=== PATIENT | male | born 1970 | race Caucasian/White ===

== ENCOUNTER 2018-02-27 15:45 | Emergency (ER) | payer BC ==
[2018-02-27 15:59] VITALS: TEMP 98.8
--- NOTE | 2018-02-27 17:11 | ED ---
General Adult HPI - General Chief complaint: Extremity Problem,Nontraumatic Stated complaint: can't walk, knee pain Time Seen by Provider: 02/27/18 16:01 Source: patient, RN notes reviewed, old records reviewed Mode of arrival: wheelchair Limitations: no limitations - History of Present Illness Initial comments: Patient is a 47 year old male whom presents to ED with R and L knee pain. Patient reports that he twisted his R knee a few weeks ago. Patient states that since then he has been using his left knee to compensate for his R knee. Patient reports he has also recently gotten over an upper respiratory infection , and has finished his antibitocs. Patient reports that his knee feels stiff, swollen and pain with ambulation. Patient reports he does not see an orthopedic physician at this time. - Related Data Previous Rx's Medication Instructions Recorded Acetaminophen with Codeine 1 tab PO Q6H PRN 3 Days #12 tab 02/27/18 [Tylenol w/codeine #3] Ibuprofen 600 mg PO TID #30 tablet 02/27/18 Allergies Allergy/AdvReac Type Severity Reaction Status Date / Time No Known Allergies Allergy Verified 02/27/18 15:59 Review of Systems ROS Statement: Those systems with pertinent positive or pertinent negative responses have been documented in the HPI. ROS Other: All systems not noted in ROS Statement are negative. Past Medical History Past Medical History: Diabetes Mellitus History of Any Multi-Drug Resistant Organisms: None Reported Additional Past Surgical History / Comment(s): retna reattachment Past Psychological History: No Psychological Hx Reported Smoking Status: Never smoker Past Alcohol Use History: Rare Past Drug Use History: None Reported General Exam - General Exam Comments Initial Comments: 47 year old male, no distress. Limitations: no limitations General appearance: alert, in no apparent distress Head exam: Present: atraumatic, normocephalic, normal inspection Eye exam: Present: normal appearance, PERRL, EOMI. Absent: scleral icterus, conjunctival injection, periorbital swelling ENT exam: Present: normal exam, mucous membranes moist Neck exam: Present: normal inspection. Absent: tenderness, meningismus, lymphadenopathy Respiratory exam: Present: normal lung sounds bilaterally. Absent: respiratory distress, wheezes, rales, rhonchi, stridor Extremities exam: Present: normal inspection (C), full ROM, normal capillary refill, other (pitus noticed over bilateral knees. Patient is tenddr over bilateral meniscus. Patient has no signiificant laxity, and negative valgus and varus bilaterally. normal distal pulse and senasation. ). Absent: tenderness, pedal edema, joint swelling, calf tenderness Back exam: Present: normal inspection Neurological exam: Present: alert, oriented X3, CN II-XII intact Psychiatric exam: Present: normal affect, normal mood Skin exam: Present: warm, dry, intact, normal color. Absent: rash Course Vital Signs 02/27/18 02/27/18 15:53 17:35 Temperature 98.8 F Pulse Rate 105 H 98 Respiratory 18 16 Rate Blood Pressure 134/87 133/76 O2 Sat by Pulse 98 95 Oximetry Medical Decision Making - Medical Decision Making Patient is a 47 year old male whom has bilateral knee pain. Patient had recent xrays at [facility]. Patient twisted his knees and has bene complnsating for the right knee with more weight on the left. Patient has crepitis and menisucal tendernss .on exam. Normal puses and patient does have good full RPM of the knees. Discussed patient is going to have to folllowup with Ortho. Given short course of antiinflammatory and pain medications. Disposition Clinical Impression: Right knee pain, Acute meniscal tear, medial, Left knee pain Disposition: HOME SELF-CARE Condition: Good Instructions: Meniscus Tear (ED) Additional Instructions: Patient advised follow-up with rac specialist. Remain in the knee immobilizer. Take a temperature medicine and pain medication as prescribed. Prescriptions: Acetaminophen with Codeine [Tylenol w/codeine #3] 1 tab PO Q6H PRN 3 Days #12 tab PRN Reason: Pain Ibuprofen 600 mg PO TID #30 tablet Is patient prescribed a controlled substance at d/c from ED?: Yes If prescribed controlled substance>3 days was MAPS reviewed?: Prescribed <3 Days If opioid is for acute pain is fill amount 7 days or less?: Yes If Rx opioid, was Start Talking consent form obtained?: Yes Referrals: Elvia Carbone III, MD [Primary Care Provider] - 1-2 days Ely Oh PAC [PHYSICIAN CROP SPECIALIST] - 1-2 days Time of Disposition: 17:07
[2018-02-27 17:41] VITALS: BP 133/76; PULSE 98; RESP 16
== END 2018-02-27 17:35 | disposition home or self-care (01) ==
LOC: EC 15:45
DX: S83.241A Other tear of medial meniscus, current injury, right knee, initial encounter (principal); S83.242A Other tear of medial meniscus, current injury, left knee, initial encounter; X50.1XXA Overexertion from prolonged static or awkward postures, initial encounter
CPT/HCPCS: 99283; L1830

== ENCOUNTER → 2018-03-02 | Outpatient (CLI) | payer BC ==
--- NOTE | 2018-03-02 17:23 | XR ---
EXAMINATION TYPE: XR orbit detect foreign body DATE OF EXAM: 03/02/2018 COMPARISON: NONE HISTORY: Check orbits for metal TECHNIQUE: 3 views FINDINGS: Orbital margins are intact. There is no sign of radiopaque foreign body. IMPRESSION: Normal exam. No evidence of a foreign body.
== END | disposition home or self-care (01) ==
LOC: RADXRMAIN 16:53
PROVIDERS: ATTEND Orthopaedic Surgery Sports Medicine
DX: Z01.818 Encounter for other preprocedural examination (principal)
CPT/HCPCS: 70030

== ENCOUNTER 2019-02-06 17:15 | Inpatient (IN) | payer BC ==
[2019-02-06] MEDS ORDERED: SODIUM CHLORIDE 0.9% 1,000 ML IV STA (17:50)
--- NOTE | 2019-02-06 18:25 | ED ---
General Adult HPI - General Chief complaint: Extremity Injury, Lower Stated complaint: Foot wound Time Seen by Provider: 02/06/19 17:16 Source: patient, RN notes reviewed, old records reviewed Mode of arrival: ambulatory Limitations: no limitations - History of Present Illness Initial comments: 48-year-old male patient with past medical history of diabetes presents to ED for chief complaint for diabetic foot ulcer. Patient Alyson has been ongoing in his right great toe for approximately 6 weeks. For student following up with his primary care prior for has been using mupirocin ointment. Patient reports that the last 2 days. Also has gotten worse, he is having follow-up odor, redness of the great toe extending up the foot. Denies any recent immun ocompromise including HIV asplenia. Denies any other complaints. Systemic: Pt denies fatigue, fever/chills, rash. Pt denies weakness, night sweats, weight loss. Neuro: Pt denies headache, visual disturbances, syncope or pre-syncope. HEENT: Pt denies ocular discharge or irritation, otalgia, rhinorrhea, pharyngitis or notable lymphadenopathy. Cardiopulmonary: Pt denies chest pain, SOB, heart palpitations, dyspnea on exertion. Abdominal/GI: Pt denies abdominal pain, n/v/d. : Pt denies dysuria, burning w/ urination, frequency/urgency. Denies new onset urinary or bowel incontinence. MSK: Pt denies myalgia, loss of strength or function in extremities. Neuro: Pt denies new onset weakness, paresthesias. - Related Data Previous Rx's Medication Instructions Recorded Acetaminophen with Codeine 1 tab PO Q6H PRN 3 Days #12 tab 02/27/18 [Tylenol w/codeine #3] Ibuprofen 600 mg PO TID #30 tablet 02/27/18 Allergies Allergy/AdvReac Type Severity Reaction Status Date / Time No Known Allergies Allergy Verified 02/27/18 15:59 Review of Systems ROS Statement: Those systems with pertinent positive or pertinent negative responses have been documented in the HPI. ROS Other: All systems not noted in ROS Statement are negative. Past Medical History Past Medical History: Diabetes Mellitus, Hypertension History of Any Multi-Drug Resistant Organisms: None Reported Additional Past Surgical History / Comment(s): retna reattachment Past Psychological History: No Psychological Hx Reported Smoking Status: Never smoker Past Alcohol Use History: Rare Past Drug Use History: None Reported General Exam - General Exam Comments Initial Comments: Constitutional: NAD, AOX3, Pt has pleasant affect. HEENT: NC/AT, trachea midline, neck supple, no lymphadenopathy. Posterior pharynx non erythematous, without exudates. External ears appear normal, without discharge. Mucous membranes moist. Eyes PERRLA, EOM intact. There is no scleral icterus. No pallor noted. Cardiopulmonary: RRR, no murmurs, rubs or gallops, no JVD noted. Lungs CTAB in anterior and posterior castañeda. No peripheral edema. Abdominal exam: Abdomen soft and non-distended. Abdomen non-tender to palpation in all 4 quadrants. Bowel sounds active in LLQ. No hepatosplenomegaly. No ecchymosis Neuro: CN II-XII grossly intact. No nuchal rigidity. No raccon eyes, no machado sign, no hemotympanum. No cervical spinal tenderness. MSK: Grade 3 diabetic foot ulcer great toe right foot. Cellulitic skin changes extending up the medial aspect of foot. Posterior tibialis, dorsalis pedis +2 equal bilaterally. No posterior calf tenderness bilaterally, homans sign negative bilaterally. Posterior tibialis and radial pulse +2 bilaterally. Sensation intact in upper and lower extremities. Full active ROM in upper and lower extremities, 5/5 stregnth. Limitations: no limitations Course Vital Signs 02/06/19 02/06/19 17:17 18:47 Temperature 98.0 F Pulse Rate 80 72 Respiratory 18 18 Rate Blood Pressure 169/93 143/73 O2 Sat by Pulse 94 L 98 Oximetry Medical Decision Making - Medical Decision Making 48-year-old male patient with past medical history of diabetes presents to ED for chief complaint for diabetic foot ulcer. Patient Alyson has been ongoing in his right great toe for approximately 6 weeks. For student following up with his primary care prior for has been using mupirocin ointment. Patient reports that the last 2 days. Also has gotten worse, he is having follow-up odor, redness of the great toe extending up the foot. Denies any recent immunocompr omise including HIV asplenia. Denies any other complaints. Patient will signs stable, afebrile. Physical exam displayed a grade 3 diabetic foot ulcer on the right great toe. No visible bone. Cellulitic changes of right toe extending up the aspect of the foot. Laboratory investigations significant for a leukocytosis of 15.1. Plain film negative for acid malaise. Patient admitted for diabetic foot ulcer. Case discussed with Dr. Castillo. - Lab Data Result diagrams: 02/06/19 18:12 02/06/19 18:12 Lab Results 02/06/19 02/06/19 02/06/19 Range/Units 18:12 18:12 18:12 WBC 15.1 H (3.8-10.6) k/uL RBC 4.86 (4.30-5.90) m/uL Hgb 15.1 (13.0-17.5) gm/dL Hct 42.7 (39.0-53.0) % MCV 87.8 (80.0-100.0) fL MCH 31.1 (25.0-35.0) pg MCHC 35.4 (31.0-37.0) g/dL RDW 13.5 (11.5-15.5) % Plt Count 363 (150-450) k/uL Neutrophils % 81 % Lymphocytes % 12 % Monocytes % 3 % Eosinophils % 2 % Basophils % 1 % Neutrophils # 12.2 H (1.3-7.7) k/uL Lymphocytes # 1.9 (1.0-4.8) k/uL Monocytes # 0.5 (0-1.0) k/uL Eosinophils # 0.3 (0-0.7) k/uL Basophils # 0.1 (0-0.2) k/uL Sodium 140 (137-145) mmol/L Potassium 4.6 (3.5-5.1) mmol/L Chloride 107 (98-107) mmol/L Carbon Dioxide 23 (22-30) mmol/L Anion Gap 10 mmol/L BUN 15 (9-20) mg/dL Creatinine 0.90 (0.66-1.25) mg/dL Est GFR (CKD-EPI)AfAm >90 (>60 ml/min/1.73 sqM) Est GFR (CKD-EPI)NonAf >90 (>60 ml/min/1.73 sqM) Glucose 129 H (74-99) mg/dL Plasma Lactic Acid Daniel 2.0 (0.7-2.0) mmol/L Calcium 9.6 (8.4-10.2) mg/dL Total Bilirubin 0.5 (0.2-1.3) mg/dL AST 40 (17-59) U/L ALT 25 (21-72) U/L Alkaline Phosphatase 69 (38-126) U/L Total Protein 7.9 (6.3-8.2) g/dL Albumin 4.3 (3.5-5.0) g/dL Disposition Clinical Impression: Diabetic foot ulcer Disposition: ADMITTED IP TO THIS HOSP Condition: Fair Is patient prescribed a controlled substance at d/c from ED?: No Referrals: Elvia Carbone III, MD [Primary Care Provider] - 1-2 days
[2019-02-06 18:40] LABS: Basophils # (A) 0.1 k/uL (0-0.2); Basophils % (A) 1 %; Eosinophils # (A) 0.3 k/uL (0-0.7); Eosinophils % (A) 2 %; HCT 42.7 % (39.0-53.0); HGB 15.1 gm/dL (13.0-17.5); Lymphocytes # (A) 1.9 k/uL (1.0-4.8); Lymphocytes % (A) 12 %; MCH 31.1 pg (25.0-35.0); MCHC 35.4 g/dL (31.0-37.0); MCV 87.8 fL (80.0-100.0); Mean Platelet Volume 5.7; Monocytes # (A) 0.5 k/uL (0-1.0); Monocytes % (A) 3 %; Neutrophils # (A) 12.2 k/uL (1.3-7.7); Neutrophils % (A) 81 %; Platelet Count 363 k/uL (150-450); RBC 4.86 m/uL (4.30-5.90); RDW 13.5 % (11.5-15.5); WBC 15.1 k/uL (3.8-10.6)
--- NOTE | 2019-02-06 18:40 | XR ---
EXAMINATION TYPE: XR foot complete RT DATE OF EXAM: 02/06/2019 COMPARISON: NONE HISTORY: 48-year-old male diabetic foot infection, pain TECHNIQUE: 3 views FINDINGS: Focal soft tissue ulcer along the medial plantar aspect of the great toe. No underlying periostitis o r osteolysis. Mild degenerative change first MTP joint. Posterior and plantar calcaneal spurs. Small os peroneum. No acute fracture, subluxation, or dislocation. IMPRESSION: Focal soft tissue ulcer along the medial plantar aspect of the great toe. No underlying osseous smallwood es to suggest osteomyelitis at this time.
[2019-02-06 18:50] LABS: ALT 25 U/L (21-72); AST 40 U/L (17-59); African American GFR (CKD) >90 (>60 ml/min/1.73 sqM); Albumin 4.3 g/dL (3.5-5.0); Alkaline Phosphatase 69 U/L (38-126); Anion Gap 10 mmol/L; Blood Urea Nitrogen 15 mg/dL (9-20); Calcium 9.6 mg/dL (8.4-10.2); Carbon Dioxide 23 mmol/L (22-30); Chloride 107 mmol/L (98-107); Glucose 129 mg/dL (74-99); Non-African American GFR(CKD) >90 (>60 ml/min/1.73 sqM); Potassium 4.6 mmol/L (3.5-5.1); Sodium 140 mmol/L (137-145); Total Bilirubin 0.5 mg/dL (0.2-1.3); Total Protein 7.9 g/dL (6.3-8.2)
[2019-02-06] MEDS ORDERED: NALOXONE 0.4 MG/ML 1 ML VIAL IV PRN (20:09)
[2019-02-06] MEDS ORDERED: PIPERACILLIN-TAZOBACTAM 3.375 GM in SODIUM CHLORIDE 0.9% 100 ML IVPB STA (20:10)
[2019-02-06] MEDS: SODIUM CHLORIDE 0.9% 1,000 ML IV SCH (20:55)
[2019-02-06 22:17] LABS: Glucose,Whole Blood 99 mg/dL (75-99)
[2019-02-06] MEDS ORDERED: HYDROmorphone 0.5 MG/0.5 ML SYRINGE IVP PRN (23:08)
[2019-02-06] MEDS ORDERED: ALPRAZolam 0.25 MG TAB PO PRN (23:08)
[2019-02-06] MEDS ORDERED: TEMAZEPAM 15 MG CAP PO PRN (23:08)
[2019-02-06] MEDS ORDERED: VANCOMYCIN 2,000 MG in SODIUM CHLORIDE 0.9% 250 ML IVPB ONE (23:09)
[2019-02-06] MEDS ORDERED: VANCOMYCIN IV PER PHARMACY 1 EACH MISC MISCELLANE PRN (23:09)
[2019-02-06] MEDS ORDERED: VANCOMYCIN 2,000 MG in SODIUM CHLORIDE 0.9% 500 ML IVPB ONE (23:30)
[2019-02-06] MEDS ORDERED: metFORMIN 500 MG TAB PO STA (23:36)
[2019-02-06] MEDS ORDERED: LISINOPRIL 20 MG TAB PO STA (23:36)
[2019-02-06] MEDS ORDERED: ESTRADIOL 0.5 MG TAB PO STA (23:37)
[2019-02-06] MEDS: HYDROcodone/APAP 5-325MG 1 EACH TAB PO PRN (23:58)
--- NOTE | 2019-02-07 04:26 | HP ---
HISTORY AND PHYSICAL DATE OF SERVICE: 02/06/2019. CHIEF COMPLAINT: Pain and swelling of the right big toe. HISTORY OF PRESENT ILLNESS: This 48-year-old gentleman with a past medical history of multiple medical problems including diabetes, hypertension, being followed by Dr. Carbone in the outpatient setting apparently noted a callus on the right big toe, which the patient tried to pare and subsequently patient had a small ulceration with difficulty with infection. 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 Because of increasing difficulty, the patient came to [facility] and admitted for further evaluation and treatment for diabetic ulcer of the right big toe. There is no history of fever, rigors. No history of headache, loss of consciousness or seizures. PAST MEDICAL HISTORY: Diabetes and hypertension. MEDICATIONS: Home medications are: 1. Lisinopril 10 20 mg q.h.s. 2.floxacillin and metformin that is Synjardy 1 tablet p.o. daily. 3. Bicalutamide b.i.d. 50 mg with lunch. 4. Aspirin. 5. Metformin 1000 mg b.i.d. 6. Estradiol 4 mg p.o. daily. ALLERGIES: None. FAMILY HISTORY: History of CAD, hypertension in the family. SOCIAL HISTORY: History of occasional alcohol. No history of smoking. REVIEW OF SYSTEMS: ENT: No diminished vision. No diminished hearing. CARDIOVASCULAR: No angina or palpitations. RESPIRATION: No cough. GI no nausea or vomiting. no dysuria or hematuria. NERVOUS SYSTEM: No numbness or weakness. ALLERGY/IMMUNOLOGY: No asthma or hayfever. MUSCULOSKELETAL as mentioned earlier. HEMATOLOGY/ONCOLOGY: No history of anemia. ENDOCRINE: As mentioned earlier. CONSTITUTIONAL: As mentioned earlier. DERMATOLOGY as mentioned earlier. RHEUMATOLOGY: Negative. PSYCHIATRY as mentioned. PHYSICAL EXAMINATION: The patient is alert and oriented times three. Pulse is 70. Blood pressure 154/80, respiration 18, temperature 98.4, pulse ox 98% on room air. HEENT: Conjunctivae normal. Oral mucosa moist. NECK is no jugular venous distention. No carotid bruit. No lymph node enlargement. Cardiovascular system: S1, S2 muffled. RESPIRATORY: Breath sounds diminished in the bases. No rhonchi. No crackles. ABDOMEN: Soft, obese, nontender. LEGS: Right big toe ulceration with callus and tenderness, erythema and cellulitis also present. NERVOUS SYSTEM: Higher functions as mentioned earlier. Moves all four limbs. No focal motor or sensory deficits. LYMPHATICS: No lymph nodes palpable in the neck, axillae or groin. SKIN: As mentioned. JOINTS as mentioned earlier. LABS: WBC 15.4, hemoglobin 15.1 and sodium 140, potassium 4.2. ASSESSMENT: 1. Acute right diabetic foot ulcer with failure of outpatient treatment and rule out osteomyelitis. 2. Increased WBC. 3. Diabetes mellitus type 2. 4. Hypertension. 5. Obesity with body mass index of 40. RECOMMENDATIONS AND DISCUSSION: In this 48-year-old gentleman who presented with multiple complex medical issues, we will monitor the patient closely, continue the current medications, management and symptomatic treatment. We will initiate broad-spectrum IV antibiotics, infectious disease evaluation. Otherwise, bone scan. Resume the home medications. DVT prophylaxis. Monitor blood sugars closely. Prognosis guarded because of multiple complex medical issues. Further recommendations to follow. A copy of dictation being forwarded to Dr. Carbone who is the primary physician. MMSHAHIDAL / ZEINABN: [id number] / DIANE
[2019-02-07] MEDS: PIPERACILLIN-TAZOBACTAM 3.375 GM in SODIUM CHLORIDE 0.9% 100 ML IVPB SCH ×3 (06:20→22:03)
[2019-02-07 07:21] LABS: Glucose,Whole Blood 100 mg/dL (75-99)
[2019-02-07] MEDS: INSULIN ASPART (NovoLOG) 100 UNIT/ML VIAL SQ SCH ×4 (07:30→21:41)
[2019-02-07 08:02] LABS: Basophils % (A) 0 %; Eosinophils # (A) 0.3 k/uL (0-0.7); Eosinophils % (A) 2 %; HCT 40.3 % (39.0-53.0); HGB 13.6 gm/dL (13.0-17.5); Lymphocytes # (A) 2.1 k/uL (1.0-4.8); Lymphocytes % (A) 17 %; MCH 30.2 pg (25.0-35.0); MCHC 33.8 g/dL (31.0-37.0); MCV 89.4 fL (80.0-100.0); Mean Platelet Volume 5.5; Monocytes # (A) 0.5 k/uL (0-1.0); Monocytes % (A) 4 %; Neutrophils # (A) 9.3 k/uL (1.3-7.7); Neutrophils % (A) 75 %; Platelet Count 314 k/uL (150-450); RBC 4.51 m/uL (4.30-5.90); RDW 13.6 % (11.5-15.5); WBC 12.3 k/uL (3.8-10.6)
[2019-02-07 08:18] LABS: African American GFR (CKD) >90 (>60 ml/min/1.73 sqM); Anion Gap 8 mmol/L; Blood Urea Nitrogen 15 mg/dL (9-20); Calcium 9.1 mg/dL (8.4-10.2); Carbon Dioxide 27 mmol/L (22-30); Chloride 105 mmol/L (98-107); Glucose 108 mg/dL (74-99); Non-African American GFR(CKD) >90 (>60 ml/min/1.73 sqM); Potassium 4.3 mmol/L (3.5-5.1); Sodium 140 mmol/L (137-145)
[2019-02-07] MEDS ORDERED: EMPAGLIFLOZIN PO SCH (09:00)
[2019-02-07] MEDS ORDERED: ESTRADIOL 0.5 MG TAB PO SCH (09:00)
[2019-02-07] MEDS ORDERED: METFORMIN HCL PO SCH (09:00)
[2019-02-07] MEDS: HEPARIN SODIUM,PORCINE 5,000 UNIT/ML 1 ML VIAL SQ SCH ×2 (10:09→21:40)
[2019-02-07] MEDS: metFORMIN 500 MG TAB PO SCH ×2 (10:09→21:40)
[2019-02-07] MEDS: VANCOMYCIN 2,000 MG in SODIUM CHLORIDE 0.9% 500 ML IVPB SCH ×2 (10:09→21:42)
[2019-02-07] MEDS: SODIUM CHLORIDE 0.9% 1,000 ML IV SCH ×2 (10:10→17:45)
[2019-02-07] MEDS: HYDROcodone/APAP 5-325MG 1 EACH TAB PO PRN (10:13)
--- NOTE | 2019-02-07 10:37 | NM ---
EXAMINATION TYPE: NM bone 3 phase DATE OF EXAM: 02/07/2019 COMPARISON: Radiograph 02/06/2019 HISTORY: 48-year-old male diabetic foot ulcer, pain. Open sore along the plantar aspect. Technique: Triple phase bone scintigraphy was performed following the injection of 24.9 mCi Tc 99m MD P. Immediate images and 3 hours post injection images acquired. Imaging centered along the bilateral distal lower extremities. FINDINGS: Flow images show asymmetric hyperemia to the right medial forefoot. These findings persist on the poo l images. Delayed images show vague increased long segment activity in this region, suspected residual soft tis vaughn activity. No focal intense activity in this region. IMPRESSION: Two-phase positive bone scan findings along the great toe suggests cellulitis. Delayed images show fa int long segment uptake, likely residual soft tissue activity. No focal intense delayed activity to c learly indicate osteomyelitis at this time. Ongoing radiographic follow-up can be performed.
[2019-02-07 12:01] LABS: Glucose,Whole Blood 104 mg/dL (75-99)
[2019-02-07] MEDS: METFORMIN HCL PO SCH (12:09)
[2019-02-07] MEDS: EMPAGLIFLOZIN PO SCH (12:09)
[2019-02-07] MEDS: ASPIRIN 81 MG PO SCH (12:09)
[2019-02-07] MEDS: BICALUTAMIDE 50 MG TAB PO SCH (12:10)
[2019-02-07] MEDS: ESTRADIOL PO SCH ×2 (15:58→21:41)
[2019-02-07 16:54] LABS: Glucose,Whole Blood 87 mg/dL (75-99)
--- NOTE | 2019-02-07 19:16 | PN ---
PROGRESS NOTE DATE OF SERVICE: 02/07/2019 This 48-year-old gentleman who was admitted with right big toe cellulitis and possibly abscess, had a bone scan suggestive of cellulitis. No evidence of osteomyelitis. No chest pain. No palpitations. The patient on broad spectrum IV antibiotics. White count is 12.3. EXAM: Alert and oriented x3. Pulse 63, blood pressure 130/97, respiration 20, temperature 97.4, pulse ox 98% on room air. HEENT: Conjunctivae normal. Oral mucosa moist. NECK: No jugular venous distention. No lymph node enlargement. CARDIOVASCULAR: S1, S2. RESPIRATORY: Diminished breath sounds at the bases. No rhonchi, no crackles. ABDOMEN: Soft, nontender. LEGS: Right toe cellulitis present. NERVOUS SYSTEM: No focal deficits. LABS: WBC 12.2, hemoglobin 13.6. ASSESSMENT: 1. Acute right diabetic foot ulcer with failure of outpatient treatment and no evidence of osteomyelitis in the bone scan. 2. Increased WBC. 3. Diabetes mellitus type 2. 4. Hypertension. 5. Obesity with body mass index of 40. RECOMMENDATIONS AND DISCUSSION: Recommend to continue current medications, continue to monitor and symptomatic treatment. Otherwise, continue with infectious disease. Continue with rest of the medications. Guarded prognosis. Further recommendations to follow. MMODL / IJN: [id number] /
[2019-02-07 21:03] LABS: Glucose,Whole Blood 105 mg/dL (75-99)
[2019-02-07] MEDS: LISINOPRIL 20 MG TAB PO SCH (21:41)
--- NOTE | 2019-02-07 23:03 | P.CONS ---
History of Present Illness - Reason for Consult Consult date: 02/07/19 Right diabetic foot infection Requesting physician: Sapphire Cho - Chief Complaint Right big toe wound and foul-smelling drainage x few days - History of Present Illness Patient is a 48 year male with a past medical history significant for diabetes mellitus the patient did develop a callus on the plantar aspect of the right big toe which apparently the patient tried to shave himself about 6 weeks ago with resultant formation of a small wound on the plantar aspect of his right big toe the patient has been trying to heal by himself with some local modalities 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 patients after he took his socks off he noticed to have a foul- smelling drainage on those dressing coming from the wound on the plantar aspect of the right big toe patient had been complaining of some pressure and dull aching pain to the right big toe for the last few days they seem to have spreading to the involved the whole toe patient has been complaining of pain to be more of a pressure-like dull aching 45-10 and no radiation patient did have some chills but denies high-grade fever with these symptoms the patient has been evaluated by the physician on to the issue did have x-rays of the right foot which did not show any bony changes of Cipro did have a bowl skin that has been negative for any osteomyelitis local wound culture has been obtained patient has been treated with a Zosyn and vancomycin and infectious disease was consulted for further recommendation regarding antibiotic therapy Review of Systems Positive point has been mentioned in the HPI rest of the systems are negative Past Medical History Past Medical History: Diabetes Mellitus, Hypertension History of Any Multi-Drug Resistant Organisms: None Reported Additional Past Surgical History / Comment(s): retna reattachment Past Anesthesia/Blood Transfusion Reactions: No Reported Reaction Past Psychological History: No Psychological Hx Reported Smoking Status: Never smoker Past Alcohol Use History: Rare Past Drug Use History: None Reported - Past Family History Father Family Medical History: Coronary Artery Disease (CAD), Hypertension Mother Family Medical History: Coronary Artery Disease (CAD) Medications and Allergies Home Medications Medication Instructions Recorded Confirmed Type Aspirin [[place]lin Aspirin EC] 81 mg PO W/LUNCH 02/06/19 02/06/19 History Bicalutamide 50 mg PO W/LUNCH 02/06/19 02/06/19 History Empagliflozin/Metformin HCl 1 tab PO DAILY 02/06/19 02/06/19 History [Synjardy Xr 25-1,000 mg Tablet] Estradiol 4 mg PO TID 02/06/19 02/06/19 History Lisinopril 20 mg PO HS 02/06/19 02/06/19 History metFORMIN HCL 1,000 mg PO BID 02/06/19 02/06/19 History Allergies Allergy/AdvReac Type Severity Reaction Status Date / Time No Known Allergies Allergy Verified 02/06/19 20:19 Physical Exam Vitals: Vital Signs Temp Pulse Resp BP Pulse Ox 02/07/19 21:41 98.1 F 66 17 149/83 97 02/07/19 12:54 97.4 F L 66 16 151/88 97 02/07/19 04:15 97.5 F L 63 20 139/71 98 Intake and Output 02/07/19 02/07/19 02/07/19 06:59 14:59 22:59 Intake Total 540 Balance 540 Intake: Oral 540 Other: Voiding Method Toilet # Voids 1 2 4 GENERAL DESCRIPTION: Middle-aged male lying in bed, no distress. No tachypnea or accessory muscle of respiration use. HEENT: Shows Pallor , no scleral icterus. Oral mucous membrane is dry. No pharyngeal erythema or thrush NECK: Trachea central, no thyromegaly. LUNGS: Unlabored breathing. Clear to auscultation anteriorly. No wheeze or crackle. HEART: S1, S2, regular rate and rhythm. No loud murmur ABDOMEN: Soft, no tenderness , guarding or rigidity, no organomegaly EXTREMITIES: No edema of feet. Right big toe plantar aspect did have a wound with foul-smelling drainage surrounding redness SKIN: No rash, no masses palpable. NEUROLOGICAL: The patient is awake, alert, oriented x3, mood and affect normal. Results CBC & Chem 7: 02/07/19 07:32 02/07/19 07:32 Labs: Abnormal Lab Results - Last 24 Hours (Table) 02/07/19 02/07/19 02/07/19 Range/Units 07:19 07:32 07:32 WBC 12.3 H (3.8-10.6) k/uL Neutrophils # 9.3 H (1.3-7.7) k/uL Glucose 108 H (74-99) mg/dL POC Glucose (mg/dL) 100 H (75-99) mg/dL 02/07/19 02/07/19 Range/Units 11:46 21:02 WBC (3.8-10.6) k/uL Neutrophils # (1.3-7.7) k/uL Glucose (74-99) mg/dL POC Glucose (mg/dL) 104 H 105 H (75-99) mg/dL Microbiology - Last 24 Hours (Table) 02/06/19 18:12 Blood Culture - Preliminary Blood No Growth after 24 hours 02/06/19 18:12 Gram Stain - Preliminary Toe - Right First Wound Culture - Preliminary Beta Hemolytic Strep Group G Assessment and Plan Assessment: 1-patient with right big toe diabetic foot infection with infected callus with a foul-smelling drainage more likely a polymicrobial adeel leading to these wound infection and secondary cellulitis (1) Diabetic infection of right foot Current Visit: Yes Status: Acute Code(s): E11.628 - TYPE 2 DIABETES MELLITUS WITH OTHER SKIN COMPLICATIONS; L08.9 - LOCAL INFECTION OF THE SKIN AND SUBCU TANEOUS TISSUE, UNSP SNOMED Code(s): 47231931 (2) Diabetic foot ulcer Current Visit: Yes Status: Acute Code(s): E11.621 - TYPE 2 DIABETES MELLITUS WITH FOOT ULCER; L97.509 - NON-PRESSURE CHRONIC ULCER OTH PRT UNSP FOOT W UNSP SEVERITY SNOMED Code(s): 658041625 Plan: 1-await vascular surgery evaluation for debridement of this callus and deep cultures 2-Vancomycin pharmacy to dose target trough of 15 while watching his kidney function and Vanco trough closely 3-discontinue Zosyn to decrease risk of nephrotoxicity add Unasyn 3 g every 6 hours We will follow on clinical condition and cultures to further adjust medication if needed Thank you for this consultation will follow this patient with you Time with Patient: Greater than 30
[2019-02-08] MEDS: AMPICILLIN-SULBACTAM 3 GM in SODIUM CHLORIDE 0.9% 100 ML IVPB SCH ×4 (00:12→18:07)
[2019-02-08] MEDS: SODIUM CHLORIDE 0.9% 1,000 ML IV SCH ×3 (02:11→21:09)
[2019-02-08] MEDS: INSULIN ASPART (NovoLOG) 100 UNIT/ML VIAL SQ SCH ×4 (07:08→20:44)
[2019-02-08 07:12] LABS: Glucose,Whole Blood 91 mg/dL (75-99)
[2019-02-08] MEDS: METFORMIN HCL PO SCH (07:52)
[2019-02-08] MEDS: EMPAGLIFLOZIN PO SCH (07:52)
[2019-02-08] MEDS: ESTRADIOL PO SCH ×3 (08:05→21:09)
[2019-02-08] MEDS: HEPARIN SODIUM,PORCINE 5,000 UNIT/ML 1 ML VIAL SQ SCH ×2 (08:43→21:09)
[2019-02-08] MEDS: metFORMIN 500 MG TAB PO SCH ×2 (08:43→21:09)
[2019-02-08] MEDS: VANCOMYCIN 2,000 MG in SODIUM CHLORIDE 0.9% 500 ML IVPB SCH (09:41)
[2019-02-08 10:09] LABS: Basophils # (A) 0.1 k/uL (0-0.2); Basophils % (A) 1 %; Eosinophils # (A) 0.3 k/uL (0-0.7); Eosinophils % (A) 2 %; HCT 42.2 % (39.0-53.0); HGB 14.4 gm/dL (13.0-17.5); Lymphocytes # (A) 1.4 k/uL (1.0-4.8); Lymphocytes % (A) 12 %; MCH 30.3 pg (25.0-35.0); MCHC 34.2 g/dL (31.0-37.0); MCV 88.8 fL (80.0-100.0); Monocytes # (A) 0.4 k/uL (0-1.0); Monocytes % (A) 4 %; Neutrophils # (A) 9.4 k/uL (1.3-7.7); Neutrophils % (A) 81 %; Platelet Count 318 k/uL (150-450); RBC 4.75 m/uL (4.30-5.90); RDW 13.2 % (11.5-15.5); WBC 11.6 k/uL (3.8-10.6)
[2019-02-08 10:19] LABS: African American GFR (CKD) >90 (>60 ml/min/1.73 sqM); Anion Gap 9 mmol/L; Blood Urea Nitrogen 13 mg/dL (9-20); Calcium 9.7 mg/dL (8.4-10.2); Carbon Dioxide 28 mmol/L (22-30); Chloride 102 mmol/L (98-107); Glucose 106 mg/dL (74-99); Non-African American GFR(CKD) >90 (>60 ml/min/1.73 sqM); Potassium 4.1 mmol/L (3.5-5.1); Sodium 139 mmol/L (137-145)
--- NOTE | 2019-02-08 11:05 | P.CON ---
Consult Note - . Consult date: 02/08/19 Assessment/Plan:: Patient is a 48-year-old male who presents today for evaluation reference to nonhealing ulceration of the right great toe. Patient indicates she first noticed a callus on the plantar aspect of the great toe. He is been trying to "manage" this at home by picking at it and soaking it. He believes his shoe is ill fitted and is the reason for the callus. He denied any known trauma to the area or any previous similar symptoms. Patient does have a history of diabetes mellitus times greater than 5 years. There is no history of tobacco use. Past medical history significant for hypertension and diabetes mellitus. Past surgical history significant for laser therapy of its attachment knob. ALLERGIES: Patient is NO KNOWN DRUG ALLERGIES. Medications: Include Xanax, aspirin, NovoLog, Zosyn, Marquand as well as Casodex. Physical examination: Vital signs are stable patient is afebrile. Neck: Supple without adenopathy or bruit. Heart: Regular without murmur. Lungs: Clear to auscultation bilaterally. Abdomen: Soft without palpable masses. Lower extremities: Femoral, popliteal, dorsalis pedis and posterior tibial pulses are intact bilaterally. Erythema of the right great toe was identified with a wound on the medial/plantar surface of the right great toe is noted measuring 3 cm x 12 mm. Depth is hard to determine although it does extend down through the subcutaneous tissues. Impression: #1: Non healing ulcer right great toe secondary to suspected diabetic vascular disease. #2: Diabetes mellitus #3: Cellulitis right great toe. Recommendation: #1: I have taken the liberty of ordering arterial Doppler study to document arterial flow to the lower extremity as well as to the digital level. #2: Patient would benefit from surgical to prided of the wound as well as offloading of the area. Surgery will be scheduled to be performed in the near future. Thank you very much for allowing me to participate in the care of your patient. Yaya Coronado D.O.
[2019-02-08 11:51] LABS: Glucose,Whole Blood 113 mg/dL (75-99)
[2019-02-08] MEDS: ASPIRIN 81 MG PO SCH (12:36)
[2019-02-08] MEDS: BICALUTAMIDE 50 MG TAB PO SCH (12:42)
--- NOTE | 2019-02-08 13:20 | PN ---
PROGRESS NOTE DATE OF SERVICE: 02/08/2019 This 48-year-old gentleman who was admitted with significant ulceration and abscess of the right big toe is being closely monitored. At this time, no chest pain or palpitations. No fever. Vascular Surgery has seen the patient as well as Infectious Disease. Ultrasound of the leg has been done. Surgery is being planned in the near future per Vascular Surgery. No chest pain or palpitations. No fever. PHYSICAL EXAMINATION: On exam, alert and oriented x3. Pulse 61, blood pressure 122/77, respirations 16, temperature 97.9, pulse ox 99% on room air. HEENT: Conjunctivae normal. Oral mucosa moist. NECK: Is no jugular venous distention. No carotid bruit. No lymph node enlargement. CARDIOVASCULAR : S1, S2 muffled. RESPIRATORY: Breath sounds diminished at the bases. No rhonchi, no crackles. ABDOMEN: Soft, nontender. LEGS: Right great toe abscess and ulceration present with cellulitis present. LABS: WBC 11.6, hemoglobin 14.4. ASSESSMENT: 1. Acute right diabetic foot ulcer with failure of outpatient treatment with no evidence of osteomyelitis on the bone scan with surrounding cellulitis. 2. Increased WBC. 3. Diabetes mellitus type 2. 4. Hypertension. 5. Obesity with body mass index of 40. RECOMMENDATION AND DISCUSSION: Recommend to continue current medications, continue symptomatic treatment. Continue with antibiotics. Closely follow with Infectious Disease and Vascular Surgery. Further recommendations to follow. MMSHAHIDAL / ABIGAIL: [id number] /
[2019-02-08 15:34] VITALS: BMI 40.0
[2019-02-08 16:42] LABS: Glucose,Whole Blood 111 mg/dL (75-99)
--- NOTE | 2019-02-08 17:35 | PN ---
PROGRESS NOTE DATE OF SERVICE: 02/08/2019. REASON FOR FOLLOWUP: Right big toe diabetic foot infection. INTERVAL HISTORY: The patient is currently afebrile. The patient is breathing comfortably. The patient denies having any chest pain. No cough. No nausea, vomiting, abdominal pain, or any diarrhea. PHYSICAL EXAMINATION: Blood pressure 160/93 with a pulse of 85, temperature 98.1. He is 97% on room air. General description is a middle-aged male lying in bed in no distress. Respiratory system: Unlabored breathing. Clear to auscultation anteriorly. Heart S1, S2. Regular rate and rhythm. Abdomen soft, no tenderness. Right big toe swelling and redness slightly decreased. Minimal drainage on the dressing. LABS: Hemoglobin is 14.4, white count 11.6, creatinine 0.97. DIAGNOSTIC IMPRESSION AND PLAN: Patient with right big toe diabetic foot infection, wound culture showed group G strep. Currently on Unasyn to continue. Discontinue the vancomycin and monitor clinical course closely. MMODL / IJN: [id number] /
[2019-02-08 20:43] LABS: Glucose,Whole Blood 129 mg/dL (75-99)
[2019-02-08] MEDS: LISINOPRIL 20 MG TAB PO SCH (21:09)
[2019-02-09] MEDS: AMPICILLIN-SULBACTAM 3 GM in SODIUM CHLORIDE 0.9% 100 ML IVPB SCH ×4 (05:57→23:50)
[2019-02-09 07:24] LABS: Glucose,Whole Blood 95 mg/dL (75-99)
[2019-02-09] MEDS: INSULIN ASPART (NovoLOG) 100 UNIT/ML VIAL SQ SCH ×4 (07:42→20:54)
[2019-02-09] MEDS: HEPARIN SODIUM,PORCINE 5,000 UNIT/ML 1 ML VIAL SQ SCH ×2 (07:50→21:23)
[2019-02-09] MEDS: ESTRADIOL PO SCH ×3 (07:54→21:24)
[2019-02-09] MEDS: metFORMIN 500 MG TAB PO SCH ×2 (07:54→21:23)
[2019-02-09] MEDS: METFORMIN HCL PO SCH (07:56)
[2019-02-09] MEDS: EMPAGLIFLOZIN PO SCH (07:56)
[2019-02-09] MEDS: SODIUM CHLORIDE 0.9% 1,000 ML IV SCH (08:20)
[2019-02-09] MEDS ORDERED: IV FLUID CONTINUATION 1,000 ML IV ONE (09:28)
[2019-02-09] MEDS ORDERED: ONDANSETRON 4 MG/2 ML VIAL IVP ONE (09:39)
[2019-02-09] MEDS ORDERED: DEXAMETHASONE SOD PHOSPHATE 10 MG/ML 1 ML VIAL IV ONE (09:40)
[2019-02-09] MEDS ORDERED: MIDAZOLAM 2 MG/2 ML VIAL ONE (10:02)
[2019-02-09] MEDS ORDERED: LIDOCAINE 1% INJ 10MG/ML (20 ML MDV) ONE (10:02)
[2019-02-09] MEDS ORDERED: fentaNYL (PF) 50 MCG/ML 2 ML AMP ONE (10:02)
[2019-02-09] MEDS ORDERED: PROPOFOL 10 MG/ML 20 ML VIAL IV ONE (10:02)
[2019-02-09] MEDS ORDERED: KETAMINE 10 MG/ML 20 ML VIAL ONE (10:02)
[2019-02-09 10:48] VITALS: RESP 16
[2019-02-09 10:57] LABS: Glucose,Whole Blood 111 mg/dL (75-99)
[2019-02-09] MEDS: BICALUTAMIDE 50 MG TAB PO SCH (11:39)
[2019-02-09] MEDS: ACETAMINOPHEN TAB 500 MG TAB PO PRN ×2 (11:39→18:05)
[2019-02-09] MEDS: ASPIRIN 81 MG PO SCH (11:39)
[2019-02-09 11:47] LABS: Glucose,Whole Blood 150 mg/dL (75-99)
[2019-02-09 13:20] LABS: Basophils # (A) 0.1 k/uL (0-0.2); Basophils % (A) 1 %; Eosinophils # (A) 0.1 k/uL (0-0.7); Eosinophils % (A) 1 %; HCT 43.4 % (39.0-53.0); HGB 14.7 gm/dL (13.0-17.5); Lymphocytes # (A) 0.8 k/uL (1.0-4.8); Lymphocytes % (A) 7 %; MCH 30.2 pg (25.0-35.0); MCV 88.8 fL (80.0-100.0); Mean Platelet Volume 6.1; Monocytes # (A) 0.2 k/uL (0-1.0); Monocytes % (A) 2 %; Neutrophils # (A) 10.1 k/uL (1.3-7.7); Neutrophils % (A) 90 %; Platelet Count 301 k/uL (150-450); RBC 4.89 m/uL (4.30-5.90); RDW 13.3 % (11.5-15.5); WBC 11.3 k/uL (3.8-10.6)
[2019-02-09 13:46] LABS: African American GFR (CKD) >90 (>60 ml/min/1.73 sqM); Anion Gap 10 mmol/L; Blood Urea Nitrogen 13 mg/dL (9-20); Calcium 9.8 mg/dL (8.4-10.2); Carbon Dioxide 23 mmol/L (22-30); Chloride 103 mmol/L (98-107); Glucose 139 mg/dL (74-99); Non-African American GFR(CKD) >90 (>60 ml/min/1.73 sqM); Potassium 4.4 mmol/L (3.5-5.1); Sodium 136 mmol/L (137-145)
[2019-02-09] MEDS: LISINOPRIL 20 MG TAB PO SCH ×2 (16:20→21:23)
[2019-02-09 16:53] LABS: Glucose,Whole Blood 192 mg/dL (75-99)
--- NOTE | 2019-02-09 18:40 | PN ---
PROGRESS NOTE DATE OF SERVICE: 02/09/2019 This 48-year-old gentleman, admitted with significant infection of the great toe on the right side, had debridement by Vascular Surgery today. No chest pain. No palpitations. No fever. Patient is on empiric antibiotics. Culture showed beta hemolytic strep group G from the cultures. No chest pain. No palpitations. No fever. Dr. Craven is following the patient closely. PHYSICAL EXAMINATION: Alert and oriented x3. Pulse 71, blood pressure 177/84, respiration 20, temperature normal, pulse ox 94% on room air. HEENT: Conjunctivae normal. NECK: No jugular venous distention. CARDIOVASCULAR SYSTEM: S1, S2 muffled. RESPIRATORY SYSTEM: Breath sounds diminished at the bases. No rhonchi. No crackles. ABDOMEN: Soft, non-tender. LEGS: Right toe cellulitis, status post incision and drainage. NERVOUS SYSTEM: No focal deficits. LABS: Labs at this time show WBC 11.3, sodium 136. ASSESSMENT: 1. Acute right diabetic foot ulcer with failure of outpatient treatment with no evidence of osteomyelitis on the bone scan, with surrounding cellulitis. 2. Beta-hemolytic strep group G from the cultures. 3. Increased white count. 4. Hypertension. 5. Diabetes mellitus, type 2. 6. Obesity with body mass index of 40. RECOMMENDATIONS AND DISCUSSION: I recommend to continue current medications, continue with the monitoring, symptomatic treatment. Otherwise as this time I would increase the dose of lisinopril to 20 twice daily. Will stop the IV fluids and continue to monitor. Further recommendations to follow. Otherwise, continue the antibiotics. Continue the dressing. Follow closely with Infectious Disease and Vascular Surgery. Further recommendations to follow. Monitor blood sugars closely; they appear to be fairly controlled. Offloading shoes per ID recommendations. MMODL / IJN: [id number] /
[2019-02-09 20:32] LABS: Glucose,Whole Blood 126 mg/dL (75-99)
[2019-02-09] MEDS: HYDROcodone/APAP 5-325MG 1 EACH TAB PO PRN (21:24)
--- NOTE | 2019-02-10 00:13 | PN ---
PROGRESS NOTE DATE OF SERVICE: 02/09/2019. REASON FOR FOLLOWUP: Right big toe diabetic food infection. INTERVAL HISTORY: The patient is currently afebrile, has been breathing comfortably. Denies having any chest pain or any cough. The patient is status post 1 temp debridement of the infected callus. The patient tolerated the procedure. No nausea. No pain. No abdominal pain no diarrhea. PHYSICAL EXAMINATION: General description is an elderly male lying in bed in no distress. Blood pressure 137/84 with a pulse of 71, temperature 98. He is 94% on room air. General description is a middle-aged male lying in bed in no distress. Respiratory system: Unlabored breathing, clear to auscultation anteriorly. HEART: S1, S2. Regular rate and rhythm. ABDOMEN: Soft. No tenderness. Right foot is currently dressed up. No obvious drainage on the dressing. LABS: Wound culture finalized with repeat Hemoccult. DIAGNOSTIC IMPRESSION AND PLAN: Patient with right big toe diabetic foot infection with no evidence of any osteomyelitis. The patient is currently covered with Unasyn, has been refusing the patient IV antibiotic therapy. We will transition him to oral Augmentin. Local wound care after evaluation of the wound tomorrow and continue supportive care. MMODL / IJN: [id number] /
[2019-02-10] MEDS: AMPICILLIN-SULBACTAM 3 GM in SODIUM CHLORIDE 0.9% 100 ML IVPB SCH ×2 (05:15→12:09)
[2019-02-10 05:34] VITALS: BP 138/74; PULSE 79; TEMP 97.9
--- NOTE | 2019-02-10 06:30 | P.OP ---
Date of Procedure: 02/09/19 Preoperative Diagnosis: Right great toe diabetic ulcer Postoperative Diagnosis: same Procedure(s) Performed: Excisional debridement of right great toe diabetic ulcer Anesthesia: MAC Surgeon: Juan Antonio Carson Estimated Blood Loss (ml): 1 Pathology: other (wound culture) Condition: stable Disposition: PACU Indications for Procedure: 48 year old male with open wound noted on the right great toe with possible infection presents to the OR for debridement and culture. Description of Procedure: After written and informed consent was obtained from the patient and all risks, benefits and complications were discussed the patient was brought to the OR and laid in a supine position. The area of the right foot was prepped and draped in the usual sterile fashion. A timeout was performed and patient was currently on antibiotics. Using a 15 blade scalpel the ulcer and surrounding callus was excised down to bleeding subcutaneous tissue. There was some exposed fat overlying the great toe musulature on the plantar surface. Some undermining was noted and cultures were obtained of the wound. Using a currette the necrotic areas of fat and skin were removed and good bleeding edges were visualized. The wound measured [id number] in depth down to subcutaneous fat. The area was then irrigated and packed with wet gauze. The patient tolerated the procedure well and was sent to recovery.
[2019-02-10 07:21] LABS: Glucose,Whole Blood 102 mg/dL (75-99)
[2019-02-10] MEDS: INSULIN ASPART (NovoLOG) 100 UNIT/ML VIAL SQ SCH ×2 (07:56→12:09)
[2019-02-10] MEDS: metFORMIN 500 MG TAB PO SCH (08:02)
[2019-02-10] MEDS: METFORMIN HCL PO SCH (08:02)
[2019-02-10] MEDS: ESTRADIOL PO SCH (08:02)
[2019-02-10] MEDS: EMPAGLIFLOZIN PO SCH (08:02)
[2019-02-10] MEDS: HEPARIN SODIUM,PORCINE 5,000 UNIT/ML 1 ML VIAL SQ SCH (08:02)
[2019-02-10] MEDS: LISINOPRIL 20 MG TAB PO SCH (08:02)
--- NOTE | 2019-02-10 08:26 | P.PN ---
Subjective Progress Note Date: 02/10/19 Patient seen and examined. He states his foot is feeling much better. He denies any pain is well controlled. General is a pleasant cooperative male in no acute distress Heart is regular at this time Lungs are clear Abdomen is obese but nontender Extremities the right great toe has decreased erythema from previous. The wound is without any discharge or drainage. Right great toe neuropathic wound Status post excisional debridement At this time continue offloading and local wound care. No further surgical intervention planned. Continue antibiotics per infectious disease. Okay for discharge from vascular standpoint Objective - Vital Signs Vital signs: Vital Signs Temp 97.9 F 02/10/19 05:33 Pulse 79 02/10/19 05:33 Resp 16 02/10/19 05:33 BP 138/74 02/10/19 05:33 Pulse Ox 99 02/10/19 05:33 Intake & Output 02/09/19 02/10/19 02/10/19 18:59 06:59 18:59 Intake Total 600 540 Output Total 1 Balance 599 540 Intake: IV 600 Oral 540 Output: Estimated Blood Loss 1 Other: Voiding Method Toilet Toilet # Voids 3 2 # Bowel Movements 0 - Labs CBC & Chem 7: 02/09/19 12:45 02/09/19 12:45 Labs: Abnormal Lab Results - Last 24 Hours (Table) 02/09/19 02/09/19 02/09/19 Range/Units 10:46 11:40 12:45 WBC 11.3 H (3.8-10.6) k/uL Neutrophils # 10.1 H (1.3-7.7) k/uL Lymphocytes # 0.8 L (1.0-4.8) k/uL Sodium (137-145) mmol/L Glucose (74-99) mg/dL POC Glucose (mg/dL) 111 H 150 H (75-99) mg/dL 02/09/19 02/09/19 02/09/19 Range/Units 12:45 16:46 20:28 WBC (3.8-10.6) k/uL Neutrophils # (1.3-7.7) k/uL Lymphocytes # (1.0-4.8) k/uL Sodium 136 L (137-145) mmol/L Glucose 139 H (74-99) mg/dL POC Glucose (mg/dL) 192 H 126 H (75-99) mg/dL 02/10/19 Range/Units 07:16 WBC (3.8-10.6) k/uL Neutrophils # (1.3-7.7) k/uL Lymphocytes # (1.0-4.8) k/uL Sodium (137-145) mmol/L Glucose (74-99) mg/dL POC Glucose (mg/dL) 102 H (75-99) mg/dL Microbiology - Last 24 Hours (Table) 02/09/19 10:15 Gram Stain - Preliminary Toe - Right First Wound Culture - Preliminary 02/09/19 10:15 Anaerobic Culture - Preliminary Toe - Right First 02/06/19 18:12 Blood Culture - Preliminary Blood No Growth after 72 hours
--- NOTE | 2019-02-10 09:37 | P.ARTDOP ---
Arterial Doppler LOWER EXTREMITY ARTERIAL DOPPLER: DATE OF SERVICE: 02/08/2019 Reason for study: Diabetic ulcer right foot. Doppler waveforms: Multiphasic bilaterally throughout. Pulse volume recording: []. Pressure gradients: None. Ankle-brachial indices: Greater than 1 bilaterally. Toe pressures: 203 on the right, 211 on the left Impression: Normal study.
--- NOTE | 2019-02-10 10:19 | P.CON ---
Consult Note - . Consult date: 02/10/19 Assessment/Plan:: Patient is a 48-year-old male who is being seen for evaluation of nonhealing ulceration to the right great toe. Patient first noticed the area as a callus on the plantar aspect of the great toe. Patient was managing the callus at home with soaking and taking away the callus material. Patient believes that the callus started from a ill fitting shoe. Patient has history of diabetes for greater than 5 years. Patient presented to the hospital for the nonhealing ulceration. He was then taken to this surgery for surgical debridement of the right great toe. Patient has a nonhealing diabetic foot ulcer grade 3 with fatty layer exposure. Measuring approximately 2 x 2.5 x 0.4 cm with Slough, callus, minimal granulation within the wound bed. No drainage is noted upon examination. Patient's past medical history significant for hypertension and diabetes mellitus. Atrial her Doppler study was a normal study. Physical examination: Integumentary: See HPI Extremities: Palpable pedal and posttibial pulses 2+ bilaterally Assessment/plan: 1. Nonhealing diabetic foot ulcer grade 3. Apply honey alginate, saline moistened gauze, dry gauze, rolled gauze, change Friday. Patient to see outpatient wound center for continuation of wound treatment. Continue with offloading. 2. Diabetes mellitus 3. Cellulitis right great toe Thank you very much for allowing me to participate in the care of your patient. Please contact the wound care center for any questions. DNP note has been reviewed and discussed with Dr. Caballero and the impression and plan of care has been directed as dictated.
[2019-02-10 11:29] LABS: Glucose,Whole Blood 106 mg/dL (75-99)
[2019-02-10] MEDS: ASPIRIN 81 MG PO SCH (12:13)
[2019-02-10] MEDS: BICALUTAMIDE 50 MG TAB PO SCH (12:13)
--- NOTE | 2019-02-10 15:38 | PN ---
PROGRESS NOTE DATE OF SERVICE: 02/10/2019 REASON FOR FOLLOWUP: Right big toe diabetic foot infection. INTERVAL HISTORY: The patient was seen on rounds this afternoon. The patient was afebrile, breathing comfortably. Denies any chest pain or cough. No abdominal pain. No nausea, vomiting or pain to the right big toe area. PHYSICAL EXAMINATION: Blood pressure 138/74 with a pulse of 79, temperature 97.9, he is 99% on room air. General description is a middle-aged male, lying in bed in no distress. RESPIRATORY SYSTEM: Unlabored breathing, Clear to auscultation anteriorly. HEART: S1, S2. Regular rate and rhythm. ABDOMEN: Soft, no tenderness. Right big toe swelling and redness slightly decreased, no drainage was noticed. LABS: Wound culture with group B strep. DIAGNOSTIC IMPRESSION AND PLAN: Patient with diabetic foot infection with infected callus, status post debridement. The patient has been offered outpatient antibiotic therapy which he is refusing because of his work. Subsequent prescription for Augmentin 875 b.i.d. for 2 weeks to be sent to pharmacy. Local wound care with Aquacel Silver packing, offloading shoes and follow up in the Wound Care Center next week. MMODL / IJN: [id number] /
--- NOTE | 2019-02-10 23:50 | DS ---
DISCHARGE SUMMARY DATE OF SERVICE: 02/10/2019 FINAL DIAGNOSES: 1. Acute right diabetic foot ulcer with failure of outpatient treatment. No evidence of osteomyelitis on the bone scan with surrounding cellulitis. 2. Beta-hemolytic strep group G grown from the cultures. 3. Increased white count. 4. Hypertension. 5. Diabetes mellitus, type 2. 6. Obesity with a body mass index of 40. DISCHARGE DISPOSITION: The patient will be discharged in stable condition with guarded prognosis. HISTORY OF PRESENT ILLNESS: This 48-year-old gentleman with a past medical history of multiple medical problems was admitted with acute right diabetic foot ulcer. Patient was treated with antibiotics and improved significantly. Patient also had debridement by Vascular Surgery. Beta- hemolytic streptococcus was grown from the cultures. Otherwise, the patient improved significantly. The patient was seen by multiple consultants, including Dr. Craven, Dr. Coronado and Dr. Carson during the hospitalization. On exam, vitals are stable. CARDIOVASCULAR SYSTEM: S1, S2 muffled. ABDOMEN: Soft. NERVOUS SYSTEM: No focal deficit. DISCHARGE ADVICE AND MEDICATIONS: 1. Diet is cardiac. 2. Activity limited until followup. 3. Follow up with Dr. Carbone in 2-3 days. 4. Follow up with Dr. Carson as recommended. 5. Follow up with Dr. Craven as recommended. 6. Bicalutamide 50 mg p.o. with lunch. 7. Estradiol 4 mg p.o. t.i.d. 8. Lisinopril 20 mg p.o. at bedtime. 9. Metformin 1000 mg p.o. b.i.d. 10.Aspirin 81 mg with lunch. 11.Empagliflozin/metformin (Synjardy) 1 tablet p.o. daily. 12.Augmentin 875 mg 1 p.o. b.i.d. for 2 weeks. 13.Tylenol p.r.n. Once again, the patient will be discharged in stable condition with guarded prognosis. MMODL / IJN: [id number] /
== END 2019-02-10 13:39 | disposition home or self-care (01) | DRG 623 ==
LOC: EC 17:15 → 4MS4W 20:17
PROVIDERS: ADMIT Hospitalist; ATTEND Hospitalist
PROC: B44FZZZ Ultrasonography of Right Lower Extremity Arteries (ICD-10-PCS; 2019-02-08)
PROC: 0JBQ0ZZ Excision of Right Foot Subcutaneous Tissue and Fascia, Open Approach (ICD-10-PCS; principal; 2019-02-09 07:30)
DX: E11.621 Type 2 diabetes mellitus with foot ulcer (principal); L03.115 Cellulitis of right lower limb; Z68.41 Body mass index [BMI] 40.0-44.9, adult; L02.611 Cutaneous abscess of right foot; L97.512 Non-pressure chronic ulcer of other part of right foot with fat layer exposed; E11.628 Type 2 diabetes mellitus with other skin complications; L03.031 Cellulitis of right toe; E66.9 Obesity, unspecified; B95.4 Other streptococcus as the cause of diseases classified elsewhere; I10 Essential (primary) hypertension; Z79.84 Long term (current) use of oral hypoglycemic drugs; Z79.82 Long term (current) use of aspirin; Z79.899 Other long term (current) drug therapy; Z98.890 Other specified postprocedural states; Z82.49 Family history of ischemic heart disease and other diseases of the circulatory system
CPT/HCPCS: 36415; 78315; 80048; 80053; 83605; 85025; 87040; 87070; 87075; 87077; 87186; 87205; 93922; 96361; 96365; 96367; 99285

== ENCOUNTER 2020-01-28 13:01 | Emergency (ER) | payer BC, OTHER ==
[2020-01-28] MEDS ORDERED: SODIUM CHLORIDE 0.9% 1,000 ML IV STA (13:40)
--- NOTE | 2020-01-28 13:46 | ED ---
Wound/Laceration HPI - General Chief Complaint: Wound/Laceration Stated Complaint: Infected ulcer Rt foot big toe Time Seen by Provider: 01/28/20 13:21 Source: patient Mode of arrival: ambulatory Limitations: no limitations - History of Present Illness Initial Comments: 49-year-old female with history of diabetic ulcers and type 2 diabetes presenting to emergency Department with the chief complaint of a toe infection. Patient reports she has been dealing with this diabetic ulcers for several years. Patient reports last time she saw Dr. Craven, beginning of this year, she was told that the infection has subsided. Patient states she did have inter mittent flareups since then but she was able treated with antibiotics. Patient reports over the last week, the ulcer has began having yellow/white discharge in her to have significantly increased in swelling. Patient reports there is also been a foul smell coming out of the toe. Patient reports some pain with ambulation. She does report erythema on the toe as well. Denies any night sweats fevers or chills. Patient states she was previously admitted for this reason. - Related Data Home Medications Medication Instructions Recorded Confirmed lisinopriL 20 mg PO HS 02/06/19 01/28/20 Ertugliflozin Pidolate [Steglatro] 15 mg PO HS 01/28/20 01/28/20 Estradiol Valerate 20mg/Ml 1 dose IM Q5D 01/28/20 01/28/20 Progesterone, Micronized 200 mg RECTAL HS 01/28/20 01/28/20 [Progesterone] metFORMIN HCL ER [Glucophage Xr] 2,000 mg PO DAILY 01/28/20 01/28/20 Previous Rx's Medication Instructions Recorded Sulfamethox-Tmp 800-160Mg [Bactrim 1 each PO Q12HR #20 tab 01/28/20 Ds] Allergies Allergy/AdvReac Type Severity Reaction Status Date / Time No Known Allergies Allergy Verified 01/28/20 14:02 Review of Systems ROS Statement: Those systems with pertinent positive or pertinent negative responses have been documented in the HPI. ROS Other: All systems not noted in ROS Statement are negative. Past Medical History Past Medical History: Diabetes Mellitus, Hypertension History of Any Multi-Drug Resistant Organisms: None Reported Additional Past Surgical History / Comment(s): retna reattachment Past Anesthesia/Blood Transfusion Reactions: No Reported Reaction Past Psychological History: No Psychological Hx Reported Smoking Status: Current some day smoker Past Alcohol Use History: None Reported Past Drug Use History: None Reported - Past Family History Father Family Medical History: Coronary Artery Disease (CAD), Hypertension Mother Family Medical History: Coronary Artery Disease (CAD) General Exam Limitations: no limitations General appearance: alert, in no apparent distress Head exam: Present: atraumatic, normocephalic, normal inspection Eye exam: Present: normal appearance, PERRL, EOMI Pupils: Present: normal accommodation ENT exam: Present: normal exam, normal oropharynx, mucous membranes moist, TM's normal bilaterally, normal external ear exam Neck exam: Present: normal inspection, full ROM. Absent: tenderness Respiratory exam: Present: normal lung sounds bilaterally. Absent: respiratory distress, wheezes, rales Cardiovascular Exam: Present: regular rate, normal rhythm, normal heart sounds Extremities exam: Present: full ROM, tenderness (Mild tenderness at the ulcerated site), normal capillary refill, other (foul smell from the ulcerated site.). Absent: normal inspection (Also noted on the plantar aspect of the right big toe with white discharge. Swollen big toe. There is mild erythema on the toe.), pedal edema, joint swelling, calf tenderness Back exam: Present: normal inspection, full ROM. Absent: tenderness, CVA tenderness (R), CVA tenderness (L) Neurological exam: Present: alert, oriented X3, normal gait Psychiatric exam: Present: normal affect, normal mood Skin exam: Present: warm, dry, intact, normal color Course Vital Signs 01/28/20 13:17 Temperature 98.9 F Pulse Rate 79 Respiratory 16 Rate Blood Pressure 140/74 O2 Sat by Pulse 99 Oximetry Medical Decision Making - Medical Decision Making 49-year-old male presenting to emergency Department with a chief complaint of a diabetic ulcer. Patient stepped a diabetic and has history of diabetic ulcers on the same exact spot. On physical examination, there is some yellow discharge but no significant erythema on the toe. The toe does appear to be swollen. X- ray shows no signs of osteomyelitis. CBC reveals mild leukocytosis of 12.2 K. CMP is unremarkable. Patient was offered admission, he declined. States oral antibiotics work well for him. States if his symptoms are not improving he would come back. Patient states he has been prescribed Bactrim several times before and that antibiotic seems to be resolving infections. Patient will be started on Bactrim in the ED. Will be discharged with 10 day course of Bactrim. Patient advised to follow-up with wound care. Strict return parameters were thoroughly discussed the patient is resting agreeable. Case discussed with physician. - Lab Data Result diagrams: 01/28/20 13:45 01/28/20 13:45 Lab Results 01/28/20 01/28/20 01/28/20 Range/Units 13:45 13:45 13:45 WBC 12.9 H (3.8-10.6) k/uL RBC 5.06 (4.30-5.90) m/uL Hgb 15.0 (13.0-17.5) gm/dL Hct 45.1 (39.0-53.0) % MCV 89.1 (80.0-100.0) fL MCH 29.6 (25.0-35.0) pg MCHC 33.2 (31.0-37.0) g/dL RDW 13.7 (11.5-15.5) % Plt Count 339 (150-450) k/uL MPV 6.7 Neutrophils % 79 % Lymphocytes % 14 % Monocytes % 4 % Eosinophils % 2 % Basophils % 0 % Neutrophils # 10.2 H (1.3-7.7) k/uL Lymphocytes # 1.8 (1.0-4.8) k/uL Monocytes # 0.6 (0-1.0) k/uL Eosinophils # 0.3 (0-0.7) k/uL Basophils # 0.0 (0-0.2) k/uL Sodium 138 (137-145) mmol/L Potassium 3.9 (3.5-5.1) mmol/L Chloride 104 (98-107) mmol/L Carbon Dioxide 26 (22-30) mmol/L Anion Gap 8 mmol/L BUN 13 (9-20) mg/dL Creatinine 0.85 (0.66-1.25) mg/dL Est GFR (CKD-EPI)AfAm >90 (>60 ml/min/1.73 sqM) Est GFR (CKD-EPI)NonAf >90 (>60 ml/min/1.73 sqM) Glucose 156 H (74-99) mg/dL Plasma Lactic Acid Daniel 2.1 H* (0.7-2.0) mmol/L Calcium 10.0 (8.4-10.2) mg/dL Total Bilirubin 0.5 (0.2-1.3) mg/dL AST 28 (17-59) U/L ALT 21 (4-49) U/L Alkaline Phosphatase 75 (38-126) U/L Total Protein 7.8 (6.3-8.2) g/dL Albumin 4.4 (3.5-5.0) g/dL Disposition Clinical Impression: Diabetic infection of right foot Disposition: HOME SELF-CARE Condition: Stable Instructions (If sedation given, give patient instructions): Foot Care for People with Diabetes (ED) Additional Instructions: Tapers, medication as directed. Follow-up with her primary care physician. Return to emergency department if symptoms worsen. Follow-up with wound care. Prescriptions: Sulfamethox-Tmp 800-160Mg [Bactrim Ds] 1 each PO Q12HR #20 tab Is patient prescribed a controlled substance at d/c from ED?: No Referrals: Elvia Carbone III, MD [Primary Care Provider] - 1-2 days Time of Disposition: 15:54
--- NOTE | 2020-01-28 14:19 | XR ---
EXAMINATION TYPE: XR toes RT DATE OF EXAM: 01/28/2020 COMPARISON: NONE HISTORY: Pain and soft tissue ulcer TECHNIQUE: 4 views of the right first digit are submitted of the foot FINDINGS: There is a soft tissue ulceration with soft tissue edema. No evidence of erosive or destruc tive changes. Hypertrophic arthropathy of the first MTP IMPRESSION: Soft tissue ulceration with no diagnostic evidence of osteomyelitis.
[2020-01-28 14:21] LABS: Basophils % (A) 0 %; Eosinophils # (A) 0.3 k/uL (0-0.7); Eosinophils % (A) 2 %; HCT 45.1 % (39.0-53.0); Lymphocytes # (A) 1.8 k/uL (1.0-4.8); Lymphocytes % (A) 14 %; MCH 29.6 pg (25.0-35.0); MCHC 33.2 g/dL (31.0-37.0); MCV 89.1 fL (80.0-100.0); Mean Platelet Volume 6.7; Monocytes # (A) 0.6 k/uL (0-1.0); Monocytes % (A) 4 %; Neutrophils # (A) 10.2 k/uL (1.3-7.7); Neutrophils % (A) 79 %; Platelet Count 339 k/uL (150-450); RBC 5.06 m/uL (4.30-5.90); RDW 13.7 % (11.5-15.5); WBC 12.9 k/uL (3.8-10.6)
[2020-01-28 14:37] LABS: ALT 21 U/L (4-49); AST 28 U/L (17-59); African American GFR (CKD) >90 (>60 ml/min/1.73 sqM); Albumin 4.4 g/dL (3.5-5.0); Alkaline Phosphatase 75 U/L (38-126); Anion Gap 8 mmol/L; Blood Urea Nitrogen 13 mg/dL (9-20); Carbon Dioxide 26 mmol/L (22-30); Chloride 104 mmol/L (98-107); Glucose 156 mg/dL (74-99); Non-African American GFR(CKD) >90 (>60 ml/min/1.73 sqM); Potassium 3.9 mmol/L (3.5-5.1); Sodium 138 mmol/L (137-145); Total Bilirubin 0.5 mg/dL (0.2-1.3); Total Protein 7.8 g/dL (6.3-8.2)
[2020-01-28] MEDS ORDERED: cefTRIAXone IN SWFI 1,000 MG/10 ML SYRINGE IVP STA (15:27)
[2020-01-28] MEDS ORDERED: VANCOMYCIN IV PER PHARMACY 1 EACH MISC MISCELLANE PRN (15:49)
[2020-01-28] MEDS ORDERED: SULFAMETHOX-TMP 800-160MG 1 EACH TAB PO STA (15:53)
[2020-01-28 16:09] VITALS: BP 119/70; PULSE 70; RESP 18; TEMP 98.6
== END 2020-01-28 16:09 | disposition home or self-care (01) ==
LOC: EC 13:01
DX: E11.628 Type 2 diabetes mellitus with other skin complications (principal); L08.9 Local infection of the skin and subcutaneous tissue, unspecified; E11.621 Type 2 diabetes mellitus with foot ulcer; I10 Essential (primary) hypertension; F17.200 Nicotine dependence, unspecified, uncomplicated; Z79.84 Long term (current) use of oral hypoglycemic drugs; Z79.899 Other long term (current) drug therapy
CPT/HCPCS: 36415; 80053; 83605; 85025; 87040; 96360; 96361; 99283

== ENCOUNTER 2020-11-26 07:52 | Inpatient (IN) | payer BC, OTHER ==
--- NOTE | 2020-11-26 08:39 | ED ---
Extremity Problem HPI - General Chief complaint: Extremity Problem,Nontraumatic Stated complaint: Infection Time Seen by Provider: 11/26/20 08:07 Source: patient, RN notes reviewed Limitations: no limitations - History of Present Illness Initial comments: This is a 50 year-old presents emergency Department with chief complaint of infection to the right foot and toe. Patient has been seeing a chrome worker in which saw on Friday had packing placed on the fourth digit and dressing change in the second digit patient has been taking clindamycin and ciprofloxacin with no improvement of symptoms. Patient has neuropathy, is a known diabetic no increase in pain at this time. - Related Data Home Medications Medication Instructions Recorded Confirmed lisinopriL 20 mg PO HS 02/06/19 11/26/20 Ertugliflozin Pidolate [Steglatro] 15 mg PO HS 01/28/20 11/26/20 Estradiol Valerate 20mg/Ml 1 dose IM Q5D 01/28/20 11/26/20 Progesterone, Micronized 200 mg PO HS 01/28/20 11/26/20 [Progesterone] metFORMIN HCL ER [Glucophage Xr] 1,000 mg PO BID 01/28/20 11/26/20 Ciprofloxacin HCl [Cipro] 500 mg PO BID 11/26/20 11/26/20 Clindamycin HCl 300 mg PO TID 11/26/20 11/26/20 Dulaglutide [Trulicity] 0.75 mg SQ TREVIZO 11/26/20 11/26/20 Propranolol HCl [Propranolol HCl 120 mg PO DAILY 11/26/20 11/26/20 ER] Allergies Allergy/AdvReac Type Severity Reaction Status Date / Time No Known Allergies Allergy Verified 11/26/20 09:08 Review of Systems ROS Statement: Those systems with pertinent positive or pertinent negative responses have been documented in the HPI. ROS Other: All systems not noted in ROS Statement are negative. Past Medical History Past Medical History: Diabetes Mellitus, Hypertension History of Any Multi-Drug Resistant Organisms: None Reported Additional Past Surgical History / Comment(s): retna reattachment Past Anesthesia/Blood Transfusion Reactions: No Reported Reaction Past Psychological History: No Psychological Hx Reported Smoking Status: Current some day smoker Past Alcohol Use History: None Reported Past Drug Use History: None Reported - Past Family History Father Family Medical History: Coronary Artery Disease (CAD), Hypertension Mother Family Medical History: Coronary Artery Disease (CAD) General Exam Limitations: no limitations General appearance: alert, in no apparent distress Head exam: Present: atraumatic, normocephalic, normal inspection Eye exam: Present: normal appearance, PERRL, EOMI. Absent: scleral icterus, conjunctival injection, periorbital swelling Respiratory exam: Present: normal lung sounds bilaterally. Absent: respiratory distress, wheezes, rales, rhonchi, stridor Cardiovascular Exam: Present: regular rate, normal rhythm, normal heart sounds. Absent: systolic murmur, diastolic murmur, rubs, gallop, clicks Extremities exam: Present: other (Right foot fourth digit there is ulceration, erythema packing the lateral portion of the fourth digit, sore on the distal portion of second digit there is erythema the proximal foot with increasing warmth pulses are palpable) Course Vital Signs 11/26/20 07:54 Temperature 98.1 F Pulse Rate 78 Respiratory 18 Rate Blood Pressure 126/87 O2 Sat by Pulse 98 Oximetry Medical Decision Making - Medical Decision Making 50-year-old presented for fell outpatient diabetic foot ulcer, cellulitis. Patiently admitted for IV antibiotics. - Lab Data Result diagrams: 11/26/20 08:48 11/26/20 08:48 Lab Results 11/26/20 11/26/20 11/26/20 Range/Units 08:48 08:48 08:48 WBC 13.2 H (3.8-10.6) k/uL RBC 4.35 (4.30-5.90) m/uL Hgb 13.7 (13.0-17.5) gm/dL Hct 38.8 L (39.0-53.0) % MCV 89.2 (80.0-100.0) fL MCH 31.4 (25.0-35.0) pg MCHC 35.2 (31.0-37.0) g/dL RDW 13.5 (11.5-15.5) % Plt Count 297 (150-450) k/uL MPV 7.4 Neutrophils % 77 % Lymphocytes % 14 % Monocytes % 4 % Eosinophils % 3 % Basophils % 0 % Neutrophils # 10.2 H (1.3-7.7) k/uL Lymphocytes # 1.9 (1.0-4.8) k/uL Monocytes # 0.5 (0-1.0) k/uL Eosinophils # 0.4 (0-0.7) k/uL Basophils # 0.1 (0-0.2) k/uL Sodium 136 L (137-145) mmol/L Potassium 3.9 (3.5-5.1) mmol/L Chloride 107 (98-107) mmol/L Carbon Dioxide 22 (22-30) mmol/L Anion Gap 7 mmol/L BUN 16 (9-20) mg/dL Creatinine 0.73 (0.66-1.25) mg/dL Est GFR (CKD-EPI)AfAm >90 (>60 ml/min/1.73 sqM) Est GFR (CKD-EPI)NonAf >90 (>60 ml/min/1.73 sqM) Glucose 113 H (74-99) mg/dL Plasma Lactic Acid Daniel 1.5 (0.7-2.0) mmol/L Calcium 8.9 (8.4-10.2) mg/dL Total Bilirubin 0.6 (0.2-1.3) mg/dL AST 24 (17-59) U/L ALT 15 (4-49) U/L Alkaline Phosphatase 68 (38-126) U/L C-Reactive Protein 4.1 H (<1.0) mg/dL Total Protein 6.2 L (6.3-8.2) g/dL Albumin 3.3 L (3.5-5.0) g/dL Coronavirus (PCR) (Not Detectd) 11/26/20 Range/Units 08:53 WBC (3.8-10.6) k/uL RBC (4.30-5.90) m/uL Hgb (13.0-17.5) gm/dL Hct (39.0-53.0) % MCV (80.0-100.0) fL MCH (25.0-35.0) pg MCHC (31.0-37.0) g/dL RDW (11.5-15.5) % Plt Count (150-450) k/uL MPV Neutrophils % % Lymphocytes % % Monocytes % % Eosinophils % % Basophils % % Neutrophils # (1.3-7.7) k/uL Lymphocytes # (1.0-4.8) k/uL Monocytes # (0-1.0) k/uL Eosinophils # (0-0.7) k/uL Basophils # (0-0.2) k/uL Sodium (137-145) mmol/L Potassium (3.5-5.1) mmol/L Chloride (98-107) mmol/L Carbon Dioxide (22-30) mmol/L Anion Gap mmol/L BUN (9-20) mg/dL Creatinine (0.66-1.25) mg/dL Est GFR (CKD-EPI)AfAm (>60 ml/min/1.73 sqM) Est GFR (CKD-EPI)NonAf (>60 ml/min/1.73 sqM) Glucose (74-99) mg/dL Plasma Lactic Acid Daniel (0.7-2.0) mmol/L Calcium (8.4-10.2) mg/dL Total Bilirubin (0.2-1.3) mg/dL AST (17-59) U/L ALT (4-49) U/L Alkaline Phosphatase (38-126) U/L C-Reactive Protein (<1.0) mg/dL Total Protein (6.3-8.2) g/dL Albumin (3.5-5.0) g/dL Coronavirus (PCR) Not Detected (Not Detectd) Disposition Clinical Impression: Diabetic infection of right foot, Diabetic foot ulcer, Cellulitis of right foot, Failure of outpatient treatment Disposition: ADMITTED IP TO THIS HOSP Condition: Fair
[2020-11-26] MEDS ORDERED: PIPERACILLIN-TAZOBACTAM 3.375 GM in SODIUM CHLORIDE 0.9% 100 ML IVPB STA (09:05)
[2020-11-26] MEDS ORDERED: VANCOMYCIN IV PER PHARMACY 1 EACH MISC MISCELLANE PRN (09:06)
[2020-11-26] MEDS ORDERED: NALOXONE 0.4 MG/ML 1 ML VIAL IV PRN (09:09)
[2020-11-26] MEDS ORDERED: ESTRADIOL VALERATE 20 MG/ML IM SCH (09:15)
[2020-11-26 09:16] LABS: Sodium 136 mmol/L (137-145)
--- NOTE | 2020-11-26 09:17 | XR ---
EXAMINATION TYPE: XR foot complete RT DATE OF EXAM: 11/26/2020 COMPARISON: Right toe x-ray January 28, 2020 HISTORY: Focal pain and swelling right second toe TECHNIQUE: 3 views right toes focusing on second toe FINDINGS: Mild to moderate narrowing and spurring second DIP joint. Mild diffuse soft tissue swelling and slight flexion redemonstrated. No new bony destruction or suspicious periosteal reaction at leve l of second toe. Flexion and varus positioning distal fourth and fifth toes with overlying gauze or bandage material. Large superior and inferior calcaneal spurs incidentally noted. Mild spurring first metatarsophalange al joint incidentally noted. IMPRESSION: As above. No convincing radiographic evidence for acute osteomyelitis right second toe.
[2020-11-26 09:20] LABS: ALT 15 U/L (4-49); AST 24 U/L (17-59); African American GFR (CKD) >90 (>60 ml/min/1.73 sqM); Albumin 3.3 g/dL (3.5-5.0); Alkaline Phosphatase 68 U/L (38-126); Anion Gap 7 mmol/L; Blood Urea Nitrogen 16 mg/dL (9-20); C Reactive Protein 4.1 mg/dL (<1.0); Calcium 8.9 mg/dL (8.4-10.2); Carbon Dioxide 22 mmol/L (22-30); Chloride 107 mmol/L (98-107); Glucose 113 mg/dL (74-99); Non-African American GFR(CKD) >90 (>60 ml/min/1.73 sqM); Potassium 3.9 mmol/L (3.5-5.1); Total Bilirubin 0.6 mg/dL (0.2-1.3); Total Protein 6.2 g/dL (6.3-8.2)
[2020-11-26] MEDS ORDERED: VANCOMYCIN 2,000 MG in SODIUM CHLORIDE 0.9% 500 ML 500 ML IVPB STA (09:20)
[2020-11-26 09:45] LABS: Basophils # (A) 0.1 k/uL (0-0.2); Basophils % (A) 0 %; Eosinophils # (A) 0.4 k/uL (0-0.7); Eosinophils % (A) 3 %; HCT 38.8 % (39.0-53.0); HGB 13.7 gm/dL (13.0-17.5); Lymphocytes # (A) 1.9 k/uL (1.0-4.8); Lymphocytes % (A) 14 %; MCH 31.4 pg (25.0-35.0); MCHC 35.2 g/dL (31.0-37.0); MCV 89.2 fL (80.0-100.0); Mean Platelet Volume 7.4; Monocytes # (A) 0.5 k/uL (0-1.0); Monocytes % (A) 4 %; Neutrophils # (A) 10.2 k/uL (1.3-7.7); Neutrophils % (A) 77 %; Platelet Count 297 k/uL (150-450); RBC 4.35 m/uL (4.30-5.90); RDW 13.5 % (11.5-15.5); WBC 13.2 k/uL (3.8-10.6)
--- NOTE | 2020-11-26 10:23 | P.HPIM ---
History of Present Illness This is a pleasant 50 years old male with past medical history of diabetes mellitus, hypertension, he is a patient of Dr. Carbone In the emergency room patient was started on vancomycin and Zosyn He had infected to with wound about 2 weeks ago he went to see his coffee bar attendant Dr. Perez, and today undergo she put him on antibiotics with Cipro and clindamycin however he noticed that his infection and his foot is getting worse so he decided to come to emergency room he had little pain in his foot Denies any other symptoms. No fever. No chest pain or dyspnea. No bowel or urinary complaints His smoking, alcohol or illicit drug Labs showing mild leukocytosis of 13.2, rest of CBC and BMP is unremarkable. Creatinine is normal at 0.7. Is not elevated. Coronavirus not detected. Foot x-ray: No evidence of osteomyelitis. Review of Systems CONSTITUTIONAL: No fever, no malaise, no fatigue. HEENT: No recent visual problems or hearing problems. Denied any sore throat. CARDIOVASCULAR: No orthopnea, PND, no palpitations, no syncope. PULMONARY: No shortness of breath, no cough, no hemoptysis. GASTROINTESTINAL: No diarrhea, no nausea, no vomiting, no abdominal pain. Normoactive bowel sounds. NEUROLOGICAL: No headaches, no weakness, no numbness. HEMATOLOGICAL: Denies any bleeding or petechiae. GENITOURINARY: Denies any burning micturition, frequency, or urgency. MUSCULOSKELETAL/RHEUMATOLOGICAL: Denies any joint pain, swelling, or any muscle pain. ENDOCRINE: Denies any polyuria or polydipsia. Past Medical History Past Medical History: Diabetes Mellitus, Hypertension History of Any Multi-Drug Resistant Organisms: None Reported Additional Past Surgical History / Comment(s): retna reattachment Past Anesthesia/Blood Transfusion Reactions: No Reported Reaction Past Psychological History: No Psychological Hx Reported Smoking Status: Current some day smoker Past Alcohol Use History: None Reported Past Drug Use History: None Reported - Past Family History Father Family Medical History: Coronary Artery Disease (CAD), Hypertension Mother Family Medical History: Coronary Artery Disease (CAD) Medications and Allergies Home Medications Medication Instructions Recorded Confirmed Type lisinopriL 20 mg PO HS 02/06/19 11/26/20 History Ertugliflozin Pidolate [Steglatro] 15 mg PO HS 01/28/20 11/26/20 History Estradiol Valerate 20mg/Ml 1 dose IM Q5D 01/28/20 11/26/20 History Progesterone, Micronized 200 mg PO HS 01/28/20 11/26/20 History [Progesterone] metFORMIN HCL ER [Glucophage Xr] 1,000 mg PO BID 01/28/20 11/26/20 History Ciprofloxacin HCl [Cipro] 500 mg PO BID 11/26/20 11/26/20 History Clindamycin HCl 300 mg PO TID 11/26/20 11/26/20 History Dulaglutide [Trulicity] 0.75 mg SQ TREVIZO 11/26/20 11/26/20 History Propranolol HCl [Propranolol HCl 120 mg PO DAILY 11/26/20 11/26/20 History ER] Allergies Allergy/AdvReac Type Severity Reaction Status Date / Time No Known Allergies Allergy Verified 11/26/20 09:08 Physical Exam Vitals: Vital Signs Temp Pulse Resp BP Pulse Ox 11/26/20 07:54 98.1 F 78 18 126/87 98 Intake and Output 11/25/20 11/26/20 11/26/20 22:59 06:59 14:59 Other: Weight 122.016 kg GENERAL: The patient is alert and oriented x3, not in any acute distress. Well developed, well nourished. HEENT: Pupils are round and equally reacting to light. EOMI. No scleral icterus. No conjunctival pallor. Normocephalic, atraumatic. No pharyngeal erythema. No thyromegaly. CARDIOVASCULAR: S1 and S2 present. No murmurs, rubs, or gallops. PULMONARY: Chest is clear to auscultation, no wheezing or crackles. ABDOMEN: Soft, nontender, nondistended, normoactive bowel sounds. No palpable organomegaly. MUSCULOSKELETAL: No joint swelling or deformity. EXTREMITIES: No cyanosis, clubbing, or pedal edema. Cellulitis of the left lateral foot. With wound and a week at the site of the fourth toe NEUROLOGICAL: Gross neurological examination did not reveal any focal deficits. SKIN: No rashes. No petechiae Results CBC & Chem 7: 11/26/20 08:48 11/26/20 08:48 Labs: Abnormal Lab Results - Last 24 Hours (Table) 11/26/20 11/26/20 Range/Units 08:48 08:48 WBC 13.2 H (3.8-10.6) k/uL Hct 38.8 L (39.0-53.0) % Neutrophils # 10.2 H (1.3-7.7) k/uL Sodium 136 L (137-145) mmol/L Glucose 113 H (74-99) mg/dL C-Reactive Protein 4.1 H (<1.0) mg/dL Total Protein 6.2 L (6.3-8.2) g/dL Albumin 3.3 L (3.5-5.0) g/dL Assessment and Plan Assessment: Acute right foot cellulitis associated with fourth toe wound, diabetic wound Diabetes mellitus possible diabetic neuropathy Hypertension obesity with BMI of 36.5 Plan: This is a pleasant 50 years old male who presents with cellulitis and diabetic toe wound. Continue with antibiotics per ID team Continue with IV hydration start the patient on normal saline at 75 mL/h send wound culture Insulin sliding scale, resume home medication Consults vascular surgery team Labs and medication were reviewed.. Continue same treatment. Continue with symptomatic treatment. Resume home medication. Monitor lytes and vitals. DVT and GI prophylaxis. Further recommendations depends on the clinical course of the patient DVT prophylaxis: Subcutaneous heparin GI Prophylaxis: Pepcid PT/OT: Pending Prognosis is guarded
[2020-11-26] MEDS: SODIUM CHLORIDE 0.9% 1,000 ML IV SCH (11:42)
[2020-11-26] MEDS: INSULIN ASPART (NovoLOG) 100 UNIT/ML VIAL SQ SCH ×3 (14:33→21:34)
[2020-11-26 14:42] LABS: Glucose,Whole Blood 137 mg/dL (75-99)
[2020-11-26] MEDS ORDERED: PIPERACILLIN-TAZOBACTAM 3.375 GM in SODIUM CHLORIDE 0.9% 100 ML IVPB SCH (17:00)
[2020-11-26] MEDS: HYDROcodone/APAP 5-325MG 1 EACH TAB PO PRN (18:18)
[2020-11-26] MEDS: VANCOMYCIN 1,750 MG in SODIUM CHLORIDE 0.9% 500 ML 500 ML IVPB SCH (19:02)
[2020-11-26] MEDS ORDERED: NON FORMULARY DRUG (Ertugliflozin Pidolate [Steglatro] 15 MG Tablet) PO SCH (21:00)
[2020-11-26] MEDS ORDERED: NON FORMULARY DRUG (Progesterone, Micronized [Progesterone] 200 MG Capsule) PO SCH (21:00)
[2020-11-26] MEDS: lisinopriL 20 MG TAB PO SCH (21:33)
[2020-11-26] MEDS: FAMOTIDINE 20 MG/2 ML VIAL IV SCH (21:33)
[2020-11-26] MEDS: metFORMIN 500 MG TAB PO SCH (21:33)
[2020-11-26] MEDS: PROGESTERONE MICRONIZED 200 MG RECTAL SCH (21:34)
[2020-11-26] MEDS: ERTUGLIFLOZIN PIDOLATE 15 MG PO SCH (21:35)
[2020-11-26] MEDS: HEPARIN SODIUM,PORCINE/PF 5,000 UNIT/0.5 ML SYRINGE SQ SCH (21:39)
--- NOTE | 2020-11-26 23:33 | P.CONS ---
History of Present Illness - Reason for Consult Consult date: 11/26/20 Diabetic foot ulcer Requesting physician: Iraj E Sheet - Chief Complaint right foot swelling and redness x few days - History of Present Illness Patient is 50-year-old male with a past medical history significant for right big toe diabetic foot infection with underlying osteomyelitis previously treated by Dr. Martinez and myself at [facility] wound care center patient now presenting to [facility] this morning for evaluation of right foot pain swelling and redness especially involvement of the right second and fourth toe patient has been started on oral clindamycin and ciprofloxacin by his switch house operator on Friday however the patient did have improvement patient did have progressive swelling and redness predominantly involving his fourth toe and the dorsum of his right foot patient did have underlying diabetic neuropathy he did have some pressure sensation but denies having any significant pain did denies any foul-smelling drainage with the symptom the patient was in the hospital on arrival to the ER the patient has been afebrile patient did have white count of 13.2 with a left shift kidney function has been normal he did have one episode was negative wound culture has been obtained which are currently pending patient did have x-rays of the foot that was negative for any bony abnormality patient was started on vancomycin and Zosyn infectious was consulted for further management of antibiotic therapy with consult to the vascular surgery for possible debridement of the infected callus and deep culture Review of Systems Positive point has been mentioned in the HPI rest of the systems are negative Past Medical History Past Medical History: Diabetes Mellitus, Hypertension History of Any Multi-Drug Resistant Organisms: None Reported Additional Past Surgical History / Comment(s): retna reattachment Past Anesthesia/Blood Transfusion Reactions: No Reported Reaction Past Psychological History: No Psychological Hx Reported Smoking Status: Current some day smoker Past Alcohol Use History: None Reported Past Drug Use History: None Reported - Past Family History Father Family Medical History: Coronary Artery Disease (CAD), Hypertension Mother Family Medical History: Coronary Artery Disease (CAD) Medications and Allergies Home Medications Medication Instructions Recorded Confirmed Type lisinopriL 20 mg PO HS 02/06/19 11/26/20 History Ertugliflozin Pidolate [Steglatro] 15 mg PO HS 01/28/20 11/26/20 History Estradiol Valerate 20mg/Ml 1 dose IM Q5D 01/28/20 11/26/20 History Progesterone, Micronized 200 mg PO HS 01/28/20 11/26/20 History [Progesterone] metFORMIN HCL ER [Glucophage Xr] 1,000 mg PO BID 01/28/20 11/26/20 History Ciprofloxacin HCl [Cipro] 500 mg PO BID 11/26/20 11/26/20 History Clindamycin HCl 300 mg PO TID 11/26/20 11/26/20 History Dulaglutide [Trulicity] 0.75 mg SQ TREVIZO 11/26/20 11/26/20 History Propranolol HCl [Propranolol HCl 120 mg PO DAILY 11/26/20 11/26/20 History ER] Allergies Allergy/AdvReac Type Severity Reaction Status Date / Time No Known Allergies Allergy Verified 11/26/20 09:08 Physical Exam Vitals: Vital Signs Temp Pulse Resp BP Pulse Ox 11/26/20 11:45 97.7 F 60 18 115/58 97 11/26/20 07:54 98.1 F 78 18 126/87 98 Intake and Output 11/25/20 11/26/20 11/26/20 22:59 06:59 14:59 Other: Weight 122.016 kg GENERAL DESCRIPTION: Middle-aged male lying in bed, no distress. No tachypnea or accessory muscle of respiration use. HEENT: Shows Pallor , no scleral icterus. Oral mucous membrane is dry. No pharyngeal erythema or thrush NECK: Trachea central, no thyromegaly. LUNGS: Unlabored breathing. Clear to auscultation anteriorly. No wheeze or crackle. HEART: S1, S2, regular rate and rhythm. No loud murmur ABDOMEN: Soft, no tenderness , guarding or rigidity, no organomegaly EXTREMITIES: No edema of feet. right 4th toe with swelling and redness with redness extending to the dorsum of right foot SKIN: No rash, no masses palpable. NEUROLOGICAL: The patient is awake, alert, oriented x3, mood and affect normal. Results CBC & Chem 7: 11/26/20 08:48 11/26/20 08:48 Labs: Abnormal Lab Results - Last 24 Hours (Table) 11/26/20 11/26/20 Range/Units 08:48 08:48 WBC 13.2 H (3.8-10.6) k/uL Hct 38.8 L (39.0-53.0) % Neutrophils # 10.2 H (1.3-7.7) k/uL Sodium 136 L (137-145) mmol/L Glucose 113 H (74-99) mg/dL C-Reactive Protein 4.1 H (<1.0) mg/dL Total Protein 6.2 L (6.3-8.2) g/dL Albumin 3.3 L (3.5-5.0) g/dL Assessment and Plan Assessment: -patient with right upper dental infection as patient already has a right fourth toe which is significantly swollen and red with significant cellulitis of the dorsal aspect of the right foot will need to cover for the polymicrobial adeel usually associated with this type of infection (1) Cellulitis of right foot Current Visit: Yes Status: Acute Code(s): L03.115 - CELLULITIS OF RIGHT LOWER LIMB SNOMED Code(s): 612797179 (2) Diabetic infection of right foot Current Visit: Yes Status: Acute Code(s): E11.628 - TYPE 2 DIABETES MELLITUS WITH OTHER SKIN COMPLICATIONS; L08.9 - LOCAL INFECTION OF THE SKIN AND SUBCUTANEOUS TISSUE, UNSP SNOMED Code(s): 62455272 Plan: 1-await surgical debridement and deep cultures 2-Marked the area of the redness 3-vancomycin pharmacy to dose with a target trough of 15 while watching her kidney function and Vanco trough closely. 4-discontinue Zosyn to decrease risk nephrotoxicity and add Unasyn 3 g every 6 hours We will follow on clinical condition and cultures to further adjust medication if needed Thank you for this consultation we will follow the patient along with you
[2020-11-27] MEDS: SODIUM CHLORIDE 0.9% 1,000 ML IV SCH ×2 (00:23→16:53)
[2020-11-27] MEDS: AMPICILLIN-SULBACTAM 3 GM in SODIUM CHLORIDE 0.9% 100 ML IVPB SCH ×5 (00:25→23:48)
[2020-11-27] MEDS: VANCOMYCIN 1,750 MG in SODIUM CHLORIDE 0.9% 500 ML 500 ML IVPB SCH ×3 (04:21→20:30)
[2020-11-27 05:26] LABS: Basophils % (A) 0 %; Eosinophils # (A) 0.4 k/uL (0-0.7); Eosinophils % (A) 4 %; HCT 37.6 % (39.0-53.0); HGB 12.9 gm/dL (13.0-17.5); Lymphocytes # (A) 2.3 k/uL (1.0-4.8); Lymphocytes % (A) 22 %; MCH 31.1 pg (25.0-35.0); MCHC 34.4 g/dL (31.0-37.0); MCV 90.4 fL (80.0-100.0); Mean Platelet Volume 7.2; Monocytes # (A) 0.5 k/uL (0-1.0); Monocytes % (A) 5 %; Neutrophils # (A) 6.8 k/uL (1.3-7.7); Neutrophils % (A) 67 %; Platelet Count 293 k/uL (150-450); RBC 4.16 m/uL (4.30-5.90); RDW 13.5 % (11.5-15.5); WBC 10.2 k/uL (3.8-10.6)
[2020-11-27 05:35] LABS: African American GFR (CKD) >90 (>60 ml/min/1.73 sqM); Anion Gap 6 mmol/L; Blood Urea Nitrogen 13 mg/dL (9-20); Calcium 8.6 mg/dL (8.4-10.2); Carbon Dioxide 24 mmol/L (22-30); Chloride 107 mmol/L (98-107); Glucose 110 mg/dL (74-99); Non-African American GFR(CKD) >90 (>60 ml/min/1.73 sqM); Potassium 3.9 mmol/L (3.5-5.1); Sodium 137 mmol/L (137-145)
[2020-11-27 06:24] LABS: Glucose,Whole Blood 105 mg/dL (75-99)
[2020-11-27] MEDS: INSULIN ASPART (NovoLOG) 100 UNIT/ML VIAL SQ SCH ×4 (09:40→20:35)
[2020-11-27] MEDS: FAMOTIDINE 20 MG/2 ML VIAL IV SCH (10:01)
[2020-11-27] MEDS: HEPARIN SODIUM,PORCINE/PF 5,000 UNIT/0.5 ML SYRINGE SQ SCH ×2 (10:01→21:00)
[2020-11-27] MEDS: metFORMIN 500 MG TAB PO SCH (10:01)
--- NOTE | 2020-11-27 12:10 | P.GSCN ---
History of Present Illness Consult date: 11/27/20 Reason for Consult: diabetic toe ulcer/infection Requesting physician: Iraj E Sheet History of present illness: This is a pleasant 50-year-old male with a past medical history of diabetes mellitus with neuropathy and hypertension. The patient presented to the emergency department with concerns for infection of his right fourth toe. 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 Patient states he recently started new job and he wears steel toed boots, thinks the wound started approximately 2 weeks ago on his fourth toe. He denies any fevers or chills. He does have a history of a previous diabetic ulcer on his right great toe which was debr[place] [address] Carson. He recently underwent bunionectomy on the right great toe in July of this year. Preliminary wound culture of the right fourth toe showing gram-positive cocci. On admission he initially had a WBC of 13.2, today's repeat is 10.2, Hemoglobin 12.9, platelet count 293,000, sodium 137, potassium 3.9, B1 13, creatinine 0.85. Infectious diseases on consult he is currently on Unasyn and vancomycin. Infectious diseases requesting excisional debridement with deep tissue culture and vascular surgery was consulted for this. Patient did have undergone x-ray of the right foot that showed no osteomyelitis of the right second toe. He currently denies any shortness of breath, chest pain, abdominal pain, nausea, vomiting, fever or chills. Denies any pain in his foot or leg. Review of Systems A 14 point review of systems was completed, all pertinent positives and negatives as stated in the HPI Past Medical History Past Medical History: Diabetes Mellitus, Hypertension History of Any Multi-Drug Resistant Organisms: None Reported Additional Past Surgical History / Comment(s): retna reattachment Past Anesthesia/Blood Transfusion Reactions: No Reported Reaction Past Psychological History: No Psychological Hx Reported Smoking Status: Current some day smoker Past Alcohol Use History: None Reported Past Drug Use History: None Reported - Past Family History Father Family Medical History: Coronary Artery Disease (CAD), Hypertension Mother Family Medical History: Coronary Artery Disease (CAD) Medications and Allergies Home Medications Medication Instructions Recorded Confirmed Type lisinopriL 20 mg PO HS 02/06/19 11/26/20 History Ertugliflozin Pidolate [Steglatro] 15 mg PO HS 01/28/20 11/26/20 History Progesterone, Micronized 200 mg PO HS 01/28/20 11/26/20 History [Progesterone] metFORMIN HCL ER [Glucophage Xr] 1,000 mg PO BID 01/28/20 11/26/20 History Ciprofloxacin HCl [Cipro] 500 mg PO BID 11/26/20 11/26/20 History Clindamycin HCl 300 mg PO TID 11/26/20 11/26/20 History Dulaglutide [Trulicity] 0.75 mg SQ TREVIZO 11/26/20 11/26/20 History Propranolol HCl [Propranolol HCl 120 mg PO DAILY 11/26/20 11/26/20 History ER] Estradiol Valerate 40mg/Ml 20 mg IM Q5D 11/27/20 11/27/20 History Allergies Allergy/AdvReac Type Severity Reaction Status Date / Time No Known Allergies Allergy Verified 11/26/20 09:08 Surgical - Exam Vital Signs Temp Pulse Resp BP Pulse Ox 98.1 F 78 18 126/87 98 11/26/20 07:54 11/26/20 07:54 11/26/20 07:54 11/26/20 07:54 11/26/20 07:54 General appearance: The patient is alert, oriented, appears in no acute distress. HET: Head is normocephalic and atraumatic. Neck: Supple without lymphadenopathy. Trachea midline. Heart: S1 S2. Regular rate and rhythm. Lungs: Clear to auscultation. Abdomen: Soft, obese, nontender, nondistended. Extremities: Right foot second toe with small distal ulcer with no drainage or redness. Fourth toe with ulcer, drainage, no foul odor, positive swelling and redness. Right foot with swelling and erythema to the dorsal aspect. Palpable dorsalis pedis and posterior tibialis pulses. Left lower extremity without edema, palpable dorsalis pedis and posterior tibialis pulse. Neurological: No focal deficits. Results - Labs 11/27/20 04:34 11/27/20 04:34 Abnormal Lab Results - Last 24 Hours (Table) 11/26/20 11/26/20 11/26/20 Range/Units 08:48 08:48 14:31 WBC 13.2 H (3.8-10.6) k/uL RBC (4.30-5.90) m/uL Hgb (13.0-17.5) gm/dL Hct 38.8 L (39.0-53.0) % Neutrophils # 10.2 H (1.3-7.7) k/uL Sodium 136 L (137-145) mmol/L Glucose 113 H (74-99) mg/dL POC Glucose (mg/dL) 137 H (75-99) mg/dL C-Reactive Protein 4.1 H (<1.0) mg/dL Total Protein 6.2 L (6.3-8.2) g/dL Albumin 3.3 L (3.5-5.0) g/dL 11/27/20 11/27/20 11/27/20 Range/Units 04:34 04:34 06:23 WBC (3.8-10.6) k/uL RBC 4.16 L (4.30-5.90) m/uL Hgb 12.9 L (13.0-17.5) gm/dL Hct 37.6 L (39.0-53.0) % Neutrophils # (1.3-7.7) k/uL Sodium (137-145) mmol/L Glucose 110 H (74-99) mg/dL POC Glucose (mg/dL) 105 H (75-99) mg/dL C-Reactive Protein (<1.0) mg/dL Total Protein (6.3-8.2) g/dL Albumin (3.5-5.0) g/dL Microbiology - Last 24 Hours (Table) 11/26/20 10:40 Gram Stain - Preliminary Toe - Right Fourth Wound Culture - Preliminary 11/26/20 10:40 Anaerobic Culture - Preliminary Toe - Right Fourth Diabetes panel 11/26/20 11/27/20 Range/Units 08:48 04:34 Sodium 136 L 137 (137-145) mmol/L Potassium 3.9 3.9 (3.5-5.1) mmol/L Chloride 107 107 (98-107) mmol/L Carbon Dioxide 22 24 (22-30) mmol/L BUN 16 13 (9-20) mg/dL Creatinine 0.73 0.85 (0.66-1.25) mg/dL Glucose 113 H 110 H (74-99) mg/dL Calcium 8.9 8.6 (8.4-10.2) mg/dL AST 24 (17-59) U/L ALT 15 (4-49) U/L Alkaline Phosphatase 68 (38-126) U/L Total Protein 6.2 L (6.3-8.2) g/dL Albumin 3.3 L (3.5-5.0) g/dL Calcium panel 11/26/20 11/27/20 Range/Units 08:48 04:34 Calcium 8.9 8.6 (8.4-10.2) mg/dL Albumin 3.3 L (3.5-5.0) g/dL Pituitary panel 11/26/20 11/27/20 Range/Units 08:48 04:34 Sodium 136 L 137 (137-145) mmol/L Potassium 3.9 3.9 (3.5-5.1) mmol/L Chloride 107 107 (98-107) mmol/L Carbon Dioxide 22 24 (22-30) mmol/L BUN 16 13 (9-20) mg/dL Creatinine 0.73 0.85 (0.66-1.25) mg/dL Glucose 113 H 110 H (74-99) mg/dL Calcium 8.9 8.6 (8.4-10.2) mg/dL Adrenal panel 11/26/20 11/27/20 Range/Units 08:48 04:34 Sodium 136 L 137 (137-145) mmol/L Potassium 3.9 3.9 (3.5-5.1) mmol/L Chloride 107 107 (98-107) mmol/L Carbon Dioxide 22 24 (22-30) mmol/L BUN 16 13 (9-20) mg/dL Creatinine 0.73 0.85 (0.66-1.25) mg/dL Glucose 113 H 110 H (74-99) mg/dL Calcium 8.9 8.6 (8.4-10.2) mg/dL Total Bilirubin 0.6 (0.2-1.3) mg/dL AST 24 (17-59) U/L ALT 15 (4-49) U/L Alkaline Phosphatase 68 (38-126) U/L Total Protein 6.2 L (6.3-8.2) g/dL Albumin 3.3 L (3.5-5.0) g/dL - Imaging Comments: Right toe x-ray shows mild to moderate narrowing and spurring second DIP joint. Mild diffuse soft tissue swelling and slight flexion redemonstrated. No new bony destruction or suspicious. Steel reaction at level of second toe. No radiographic evidence for acute osteomyelitis of right second toe Assessment and Plan Assessment: 1. Diabetic foot ulcer fourth toe with infection 2. Cellulitis of the right foot 3. History of diabetes mellitus with neuropathy 4. History of hypertension Plan: 1. Continue antibiotics per recommendations from infectious disease 2. Nothing by mouth after midnight 3. Patient is scheduled for excisional debridement of right fourth toe with deep tissue culture, possible debridement of right second toe Thank you for this consultation and allowing us take part in the plan of care of your patient during his hospital stay The impression and plan of care has been dictated as directed. Dr. Resendiz I performed a history and examination of this patient, discussed the same with the dictator. I agree with the dictator's note ,documented as a scribe. Any additional findings or plans will be noted.
[2020-11-27 12:35] LABS: Glucose,Whole Blood 98 mg/dL (75-99)
--- NOTE | 2020-11-27 13:11 | P.PN ---
Subjective This is a pleasant 50 years old male with past medical history of diabetes mellitus, hypertension, he is a patient of Dr. 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 No fever. No chest pain or dyspnea. No bowel or urinary complaints His smoking, alcohol or illicit drug Labs showing mild leukocytosis of 13.2, rest of CBC and BMP is unremarkable. Creatinine is normal at 0.7. Is not elevated. Coronavirus not detected. Foot x-ray: No evidence of osteomyelitis. 11/27/2020 Patient right foot cellulitis is improving, otherwise he is asymptomatic WBC is back to normal at 10.2 and creatinine normal at 0.8 Antibiotics switched to Unasyn plus vancomycin, risk of vancomycin nephrotoxici ty is explained for the patient and he agrees. Patient is scheduled for debridement by surgical team tomorrow Hold dose of metformin when he'll be nothing by mouth Objective - Vital Signs Vital signs: Vital Signs Temp 98 F 11/27/20 07:55 Pulse 63 11/27/20 07:55 Resp 18 11/27/20 07:55 BP 148/81 11/27/20 07:55 Pulse Ox 99 11/27/20 07:55 Intake & Output 11/26/20 11/27/20 11/27/20 18:59 06:59 18:59 Intake Total 236 Balance 236 Weight 122.016 kg 122.016 kg Intake: Oral 236 - Exam GENERAL: The patient is alert and oriented x3, not in any acute distress. Well developed, well nourished. HEENT: Pupils are round and equally reacting to light. EOMI. No scleral icterus. No conjunctival pallor. Normocephalic, atraumatic. No pharyngeal erythema. No thyromegaly. CARDIOVASCULAR: S1 and S2 present. No murmurs, rubs, or gallops. PULMONARY: Chest is clear to auscultation, no wheezing or crackles. ABDOMEN: Soft, nontender, nondistended, normoactive bowel sounds. No palpable organomegaly. MUSCULOSKELETAL: No joint swelling or deformity. -EXTREMITIES: No cyanosis, clubbing, or pedal edema. Cellulitis of the left lateral foot. With wound and a week at the site of the fourth toe, improving cellulitis NEUROLOGICAL: Gross neurological examination did not reveal any focal deficits. SKIN: No rashes. No petechiae - Labs CBC & Chem 7: 11/27/20 04:34 11/27/20 04:34 Labs: Abnormal Lab Results - Last 24 Hours (Table) 11/26/20 11/27/20 11/27/20 Range/Units 14:31 04:34 04:34 RBC 4.16 L (4.30-5.90) m/uL Hgb 12.9 L (13.0-17.5) gm/dL Hct 37.6 L (39.0-53.0) % Glucose 110 H (74-99) mg/dL POC Glucose (mg/dL) 137 H (75-99) mg/dL 11/27/20 Range/Units 06:23 RBC (4.30-5.90) m/uL Hgb (13.0-17.5) gm/dL Hct (39.0-53.0) % Glucose (74-99) mg/dL POC Glucose (mg/dL) 105 H (75-99) mg/dL Microbiology - Last 24 Hours (Table) 11/26/20 08:48 Blood Culture - Preliminary Blood No Growth after 24 hours 11/26/20 08:48 Blood Culture - Preliminary Blood No Growth after 24 hours 11/26/20 10:40 Gram Stain - Preliminary Toe - Right Fourth Wound Culture - Preliminary 11/26/20 10:40 Anaerobic Culture - Preliminary Toe - Right Fourth Assessment and Plan Assessment: Acute right foot cellulitis associated with fourth toe wound, diabetic wound Diabetes mellitus possible diabetic neuropathy Hypertension obesity with BMI of 36.5 Plan: This is a pleasant 50 years old male who presents with cellulitis and diabetic toe wound. Continue with antibiotics per ID team, currently on IV vancomycin and Unasyn Continue with IV hydration start the patient on normal saline at 75 mL/h send wound culture Insulin sliding scale, resume home medication Consults vascular surgery team Labs and medication were reviewed.. Continue same treatment. Continue with symptomatic treatment. Resume home medication. Monitor lytes and vitals. DVT and GI prophylaxis. Further recommendations depends on the clinical course of the patient DVT prophylaxis: Subcutaneous heparin GI Prophylaxis: Pepcid PT/OT: Pending Prognosis is guarded
[2020-11-27] MEDS: HYDROcodone/APAP 5-325MG 1 EACH TAB PO PRN (15:17)
[2020-11-27 15:31] VITALS: BMI 36.4
[2020-11-27] MEDS ORDERED: VANCOMYCIN TROUGH DUE 1 EACH MISC MISCELLANE ONE (17:30)
[2020-11-27 17:36] LABS: Glucose,Whole Blood 154 mg/dL (75-99)
--- NOTE | 2020-11-27 17:57 | PN ---
PROGRESS NOTE DATE OF SERVICE: 11/27/2020 REASON FOR FOLLOWUP: Right fourth and second toe diabetic foot infection with cellulitis. INTERVAL HISTORY: The patient is currently afebrile. He is breathing comfortably. Pain and discomfort to the right foot have slightly decreased. No chest pain, shortness of breath or cough. No abdominal pain or diarrhea. PHYSICAL EXAMINATION: Blood pressure 142/82 with a pulse of 67, temperature 98. He is 98% on room air. GENERAL DESCRIPTION: General description is a middle-aged male lying in bed in no distress. RESPIRATORY SYSTEM: Unlabored breathing. Clear to auscultation anteriorly. HEART: S1, S2. Regular rate and rhythm. ABDOMEN: Soft. No tenderness. Right foot swelling and redness have slightly decreased. LABS: Hemoglobin is 12.9, white count 12.2, creatinine 0.85. Cultures are currently pending. DIAGNOSTIC IMPRESSION AND PLAN: Patient with right fourth toe diabetic foot infection with cellulitis of the right foot. Cultures are currently pending. Patient to continue with Unasyn and vancomycin, adjusting antibiotic further based on culture report. Continue supportive care. MMODL / IJN: [id number] /
[2020-11-27 20:18] LABS: Glucose,Whole Blood 128 mg/dL (75-99)
[2020-11-27] MEDS: PROGESTERONE MICRONIZED 200 MG RECTAL SCH (20:59)
[2020-11-27] MEDS: ERTUGLIFLOZIN PIDOLATE 15 MG PO SCH (20:59)
[2020-11-27] MEDS: FAMOTIDINE 20 MG TAB PO SCH (21:00)
[2020-11-27] MEDS: lisinopriL 20 MG TAB PO SCH (21:00)
[2020-11-27] MEDS: metFORMIN 850 MG TAB PO SCH (21:06)
[2020-11-28] MEDS: VANCOMYCIN 1,750 MG in SODIUM CHLORIDE 0.9% 500 ML 500 ML IVPB SCH ×3 (03:17→22:06)
[2020-11-28] MEDS: SODIUM CHLORIDE 0.9% 1,000 ML IV SCH ×2 (03:18→21:21)
[2020-11-28] MEDS ORDERED: MIDAZOLAM 2 MG/2 ML VIAL IV PRN (06:00)
[2020-11-28] MEDS ORDERED: LIDOCAINE 1% (10MG/ML) FOR IV START INTRADERMA PRN (06:00)
[2020-11-28] MEDS ORDERED: fentaNYL (PF) 50 MCG/ML 2 ML AMP IVP PRN (06:00)
[2020-11-28] MEDS: AMPICILLIN-SULBACTAM 3 GM in SODIUM CHLORIDE 0.9% 100 ML IVPB SCH ×3 (06:23→17:34)
[2020-11-28] MEDS ORDERED: HYDROmorphone 0.5 MG/0.5 ML SYRINGE IVP PRN (07:00)
[2020-11-28 07:20] LABS: African American GFR (CKD) >90 (>60 ml/min/1.73 sqM); Non-African American GFR(CKD) >90 (>60 ml/min/1.73 sqM)
[2020-11-28 07:21] LABS: Glucose,Whole Blood 85 mg/dL (75-99)
[2020-11-28] MEDS: INSULIN ASPART (NovoLOG) 100 UNIT/ML VIAL SQ SCH ×4 (07:33→21:14)
[2020-11-28] MEDS: FAMOTIDINE 20 MG TAB PO SCH ×2 (07:33→21:11)
[2020-11-28] MEDS: metFORMIN 850 MG TAB PO SCH ×2 (07:34→21:11)
[2020-11-28] MEDS: HEPARIN SODIUM,PORCINE/PF 5,000 UNIT/0.5 ML SYRINGE SQ SCH ×2 (07:34→21:14)
[2020-11-28 10:18] LABS: Glucose,Whole Blood 94 mg/dL (75-99)
[2020-11-28] MEDS ORDERED: IV FLUID CONTINUATION 1,000 ML IV ONE (10:20)
[2020-11-28] MEDS: DEXAMETHASONE SOD PHOSPHATE 4 MG/ML 1 ML VIAL IV ONE ×2 (10:24→11:27)
[2020-11-28] MEDS: ONDANSETRON 4 MG/2 ML VIAL IVP ONE ×2 (10:24→11:28)
[2020-11-28] MEDS: LACTATED RINGERS 1,000 ML IV SCH (11:28)
--- NOTE | 2020-11-28 11:46 | P.PCN ---
Date of Procedure: 11/28/20 Preoperative Diagnosis: Right 4th toe diabetic ulcer with infection and foot cellulitis Postoperative Diagnosis: Same Procedure(s) Performed: right 4th toe excisional debridement and deep tissue culture Anesthesia: none Surgeon: Juan Antonio Carson Estimated Blood Loss (ml): 2 Condition: stable Disposition: no change Indications for Procedure: 50 year old gentleman with history of diabetes and peripheral neuropathy presented to the hospital with new redness and drainage from the 4th toe on the right. He was sent to the hospital for IV antibiotics and upon evaluation per ID would need cultures. Xray of the foot demonstrated no evidence of osteo and he presented to the pre-op for debridement and cultures. Upon evaluation it was determined he did not require the operating room and debridement and cultures were obtained at bedside. Operative Findings: .5x.5 cm wound on the lateral aspect of the 4th toe with depth of 1cm to the fascia. No bone visualized. Description of Procedure: After written and informed consent was obtained and all risks, benefits and complications were described the procedure was performed at the bedside in the pre-op area. The right foot was prepped and draped in usual fashion. A curette was utilized and deep debridement was performed and purulent drainage was encountered. Cultures were then obtained. The pus was then expressed till only bleeding tissues noted. The area was then cleansed and dressings were placed. Possible need for amputation of 4th toe in future if wound doesn't improve with antibiotics and local wound care.
--- NOTE | 2020-11-28 12:34 | P.PN ---
Subjective This is a pleasant 50 years old male with past medical history of diabetes mellitus, hypertension, he is a patient of Dr. 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 Perez, and today undergo she put him on antibiotics with Cipro and clin damycin however he noticed that his infection and his foot is getting worse so he decided to come to emergency room he had little pain in his foot Denies any other symptoms. No fever. No chest pain or dyspnea. No bowel or urinary complaints His smoking, alcohol or illicit drug Labs showing mild leukocytosis of 13.2, rest of CBC and BMP is unremarkable. Creatinine is normal at 0.7. Is not elevated. Coronavirus not detected. Foot x-ray: No evidence of osteomyelitis. 11/27/2020 Patient right foot cellulitis is improving, otherwise he is asymptomatic WBC is back to normal at 10.2 and creatinine normal at 0.8 Antibiotics switched to Unasyn plus vancomycin, risk of vancomycin nephrotoxici ty is explained for the patient and he agrees. Patient is scheduled for debridement by surgical team tomorrow Hold dose of metformin when he'll be nothing by mouth 11/28/2020 Patient today is with no specific new symptoms. He is status post (right 4th toe excisional debridement and deep tissue culture) by surgical team today. Hemodynamically stable. Creatinine normal. Glucose controlled He remains on broad-spectrum antibiotics of Unasyn and IV vancomycin as gentle hydration Follow-up Final culture results Objective - Vital Signs Vital signs: Vital Signs Temp 97.8 F 11/28/20 11:40 Pulse 61 11/28/20 11:40 Resp 20 11/28/20 11:40 BP 138/79 11/28/20 11:40 Pulse Ox 95 11/28/20 11:40 Intake & Output 11/27/20 11/28/20 11/28/20 18:59 06:59 18:59 Intake Total 472 500 Balance 472 500 Weight 122.016 kg Intake: Intake, IV Titration 500 Amount Vancomycin 1,750 mg In 500 Sodium Chloride 0.9% 500 ml 500 ml @ 167 mls/hr IVPB Q8H [facility] Rx#: [id number] Oral 472 0 Other: Voiding Method Toilet Toilet # Voids 3 1 # Bowel Movements 1 - Exam GENERAL: The patient is alert and oriented x3, not in any acute distress. Well developed, well nourished. HEENT: Pupils are round and equally reacting to light. EOMI. No scleral icterus. No conjunctival pallor. Normocephalic, atraumatic. No pharyngeal erythema. No thyromegaly. CARDIOVASCULAR: S1 and S2 present. No murmurs, rubs, or gallops. PULMONARY: Chest is clear to auscultation, no wheezing or crackles. ABDOMEN: Soft, nontender, nondistended, normoactive bowel sounds. No palpable organomegaly. MUSCULOSKELETAL: No joint swelling or deformity. -EXTREMITIES: No cyanosis, clubbing, or pedal edema. Cellulitis of the left lateral foot. With wound and a week at the site of the fourth toe, improving cellulitis NEUROLOGICAL: Gross neurological examination did not reveal any focal deficits. SKIN: No rashes. No petechiae - Labs CBC & Chem 7: 11/27/20 04:34 11/28/20 06:11 Labs: Abnormal Lab Results - Last 24 Hours (Table) 11/27/20 11/27/20 Range/Units 17:34 19:58 POC Glucose (mg/dL) 154 H 128 H (75-99) mg/dL Microbiology - Last 24 Hours (Table) 11/26/20 08:48 Blood Culture - Preliminary Blood No Growth after 48 hours 11/26/20 08:48 Blood Culture - Preliminary Blood No Growth after 48 hours Assessment and Plan Assessment: Acute right foot cellulitis associated with fourth toe wound, diabetic wound, status post right 4th toe excisional debridement and deep tissue culture Diabetes mellitus possible diabetic neuropathy Hypertension obesity with BMI of 36.5 Plan: This is a pleasant 50 years old male who presents with cellulitis and diabetic toe wound. Continue with antibiotics per ID team, currently on IV vancomycin and Unasyn Continue with IV hydration start the patient on normal saline at 75 mL/h Follow-up wound culture Insulin sliding scale, resume home medication vascular surgery team Labs and medication were reviewed.. Continue same treatment. Continue with symptomatic treatment. Resume home medication. Monitor lytes and vitals. DVT and GI prophylaxis. Further recommendations depends on the clinical course of the patient DVT prophylaxis: Subcutaneous heparin GI Prophylaxis: Pepcid PT/OT: Home Prognosis is guarded
--- NOTE | 2020-11-28 12:35 | P.CONS ---
History of Present Illness - Reason for Consult Consult date: 11/28/20 wound care - History of Present Illness This is a 50-year-old gentleman with a known history of diabetes previous diabetic foot ulcer and hypertension. He is a current every day smoker. Patient is being seen on [address] for a diabetic foot ulcer of the fourth digit of the right toe lateral aspect. Patient underwent a bedside debridement with Dr. Carson today. A deep tissue culture was obtained. Patient states previously approximately 2 years ago he had a diabetic foot ulcer to the right great toe. He was treated at the [facility] wound care system with Dr. Craven. He currently has absorptive silver and Hydrofera Blue at home. Ulceration is located on the fourth digit lateral aspect measuring 0.5 x 0.5 x 1 cm no bone was present. There is granulation throughout the wound bed with minimal slough. No tunneling or undermining noted. Wound edges are attached to the wound base. Review Of Systems: Constitutional: No fever, no chills, no night sweats. No weight change. No weakness, fatigue or lethargy. No daytime sleepiness. Integumentary:reports wounds, no lesions. No rash or pruritus. No unusual bruising. No change in hair or nails. Physical exam: General Appearance: Alert, cooperative, no distress, appears stated age. Skin: See HPI all other Skin color, texture, tugor normal, no rashes or lesions. Neurologic: Alert oriented x3 Assessment: 1. Diabetic foot ulcer 2. Nonhealing ulceration with fat layer exposure fourth digit of right foot Plan: 1.Right 4th digit lateral aspect: Apply absorptive silver, saline moistened gauze, dry gauze, rolled gauze secured with paper tape. Change Friday. 2. Patient would benefit from continued outpatient wound care therapy. We'd be happy to see him in the wound care center. Thank you for the consultation any questions please contact the wound care center DNP note has been reviewed and discussed with Dr. Caballero and the impression and plan of care has been directed as dictated. Past Medical History Past Medical History: Diabetes Mellitus, Hypertension History of Any Multi-Drug Resistant Organisms: None Reported Additional Past Surgical History / Comment(s): retna reattachment Past Anesthesia/Blood Transfusion Reactions: No Reported Reaction Past Psychological History: No Psychological Hx Reported Smoking Status: Current some day smoker Past Alcohol Use History: None Reported Past Drug Use History: None Reported - Past Family History Father Family Medical History: Coronary Artery Disease (CAD), Hypertension Mother Family Medical History: Coronary Artery Disease (CAD) Medications and Allergies Home Medications Medication Instructions Recorded Confirmed Type lisinopriL 20 mg PO HS 02/06/19 11/26/20 History Ertugliflozin Pidolate [Steglatro] 15 mg PO HS 01/28/20 11/26/20 History Progesterone, Micronized 200 mg PO HS 01/28/20 11/26/20 History [Progesterone] metFORMIN HCL ER [Glucophage Xr] 1,000 mg PO BID 01/28/20 11/26/20 History Ciprofloxacin HCl [Cipro] 500 mg PO BID 11/26/20 11/26/20 History Clindamycin HCl 300 mg PO TID 11/26/20 11/26/20 History Dulaglutide [Trulicity] 0.75 mg SQ TREVIZO 11/26/20 11/26/20 History Propranolol HCl [Propranolol HCl 120 mg PO DAILY 11/26/20 11/26/20 History ER] Estradiol Valerate 40mg/Ml 20 mg IM Q5D 11/27/20 11/27/20 History Allergies Allergy/AdvReac Type Severity Reaction Status Date / Time No Known Allergies Allergy Verified 11/26/20 09:08 Physical Exam Vitals: Vital Signs Temp Pulse Pulse Resp BP BP Pulse Ox 11/28/20 11:40 97.8 F 61 20 138/79 95 11/28/20 11:15 65 20 142/65 94 L 11/28/20 10:17 66 18 138/74 97 11/28/20 04:35 97.6 F 61 20 139/76 96 11/27/20 19:10 97.8 F 97 20 151/76 97 11/27/20 14:44 98.0 F 67 17 142/82 98 11/27/20 14:00 67 17 Intake and Output 11/27/20 11/28/20 11/28/20 22:59 06:59 14:59 Intake Total 500 0 Balance 500 0 Intake: Intake, IV Titration 500 Amount Vancomycin 1,750 mg In 500 Sodium Chloride 0.9% 500 ml 500 ml @ 167 mls/hr IVPB Q8H [facility] Rx#: [id number] Oral 0 Other: Voiding Method Toilet # Voids 1 Weight 122.016 kg Results CBC & Chem 7: 11/27/20 04:34 11/28/20 06:11 Labs: Abnormal Lab Results - Last 24 Hours (Table) 11/27/20 11/27/20 Range/Units 17:34 19:58 POC Glucose (mg/dL) 154 H 128 H (75-99) mg/dL Microbiology - Last 24 Hours (Table) 11/26/20 08:48 Blood Culture - Preliminary Blood No Growth after 48 hours 11/26/20 08:48 Blood Culture - Preliminary Blood No Growth after 48 hours Assessment and Plan (1) Non-healing ulcer of right foot with fat layer exposed Current Visit: Yes Status: Acute Code(s): L97.512 - NON-PRS CHRONIC ULCER OTH PRT RIGHT FOOT W FAT LAYER EXPOSED SNOMED Code(s): 151357248 (2) Diabetic foot ulcer Current Visit: Yes Status: Acute Code(s): E11.621 - TYPE 2 DIABETES MELLITUS WITH FOOT ULCER; L97.509 - NON-PRESSURE CHRONIC ULCER OTH PRT UNSP FOOT W UNSP S [place] SNOMED Code(s): 870469758
[2020-11-28 12:54] LABS: Glucose,Whole Blood 176 mg/dL (75-99)
[2020-11-28 17:03] LABS: Glucose,Whole Blood 118 mg/dL (75-99)
--- NOTE | 2020-11-28 19:19 | PN ---
PROGRESS NOTE DATE OF SERVICE: 11/28/2020 REASON FOR FOLLOWUP: Right 4th toe diabetic foot infection with cellulitis. INTERVAL HISTORY: Patient is afebrile. The patient is status post bedside I and D of the right 4th toe, drainage of the abscess. Cultures currently pending. Patient denies having any chest pain, shortness of breath or cough. No abdominal pain. No diarrhea. PHYSICAL EXAMINATION: Blood pressure 138/79, with a pulse of 61. Temperature is 97.8. He is 95% on room air. General description is a middle-aged male lying in bed in no distress. Respiratory system: Unlabored breathing and is clear to auscultation anteriorly. Heart S1, S2. Regular rate and rhythm. Abdomen: Soft. No tenderness. Right foot is currently dressed. No obvious drainage on the dressing. LAB: Cultures currently pending. DIAGNOSTIC IMPRESSION AND PLAN: Patient with right 4th toe abscess status post drainage with secondary cellulitis. Patient is covered with Unasyn and Vanco to continue while waiting for the culture to finalize and monitor clinical course closely. MMODL / IJN: [id number] /
[2020-11-28] MEDS: HYDROcodone/APAP 5-325MG 1 EACH TAB PO PRN (20:19)
[2020-11-28 20:34] LABS: Glucose,Whole Blood 144 mg/dL (75-99)
[2020-11-28] MEDS: lisinopriL 20 MG TAB PO SCH (21:11)
[2020-11-28] MEDS: ERTUGLIFLOZIN PIDOLATE 15 MG PO SCH (21:12)
[2020-11-28] MEDS: PROGESTERONE MICRONIZED 200 MG RECTAL SCH (21:12)
[2020-11-29] MEDS: AMPICILLIN-SULBACTAM 3 GM in SODIUM CHLORIDE 0.9% 100 ML IVPB SCH ×5 (05:40→23:26)
[2020-11-29] MEDS: LACTATED RINGERS 1,000 ML IV SCH (06:01)
[2020-11-29] MEDS: SODIUM CHLORIDE 0.9% 1,000 ML IV SCH ×2 (06:02→19:47)
[2020-11-29] MEDS: VANCOMYCIN 1,750 MG in SODIUM CHLORIDE 0.9% 500 ML 500 ML IVPB SCH ×2 (06:48→13:25)
[2020-11-29 07:06] LABS: African American GFR (CKD) >90 (>60 ml/min/1.73 sqM); C Reactive Protein 1.3 mg/dL (<1.0); Non-African American GFR(CKD) >90 (>60 ml/min/1.73 sqM)
[2020-11-29 07:31] LABS: Glucose,Whole Blood 117 mg/dL (75-99)
[2020-11-29] MEDS: INSULIN ASPART (NovoLOG) 100 UNIT/ML VIAL SQ SCH ×4 (07:39→20:38)
[2020-11-29] MEDS: metFORMIN 850 MG TAB PO SCH ×2 (08:16→20:17)
[2020-11-29] MEDS: FAMOTIDINE 20 MG TAB PO SCH ×2 (08:16→20:17)
[2020-11-29] MEDS: HEPARIN SODIUM,PORCINE/PF 5,000 UNIT/0.5 ML SYRINGE SQ SCH ×3 (08:16→20:18)
--- NOTE | 2020-11-29 10:28 | P.PN ---
Subjective Progress Note Date: 11/29/20 The patient is seen and examined sitting up in bed. He was admitted for right fourth toe diabetic ulcer with infection and cellulitis of the foot. Yesterday he underwent a right fourth toe excisional debridement and deep tissue culture. Culture is currently pending. Patient remains on IV antibiotics per recommendations from infectious disease. Wound care saw patient yesterday and gave wound care instructions. Patient to follow-up outpatient. He has been afebrile. He denies any pain. Objective - Vital Signs Vital signs: Vital Signs Temp 97.5 F L 11/29/20 05:00 Pulse 59 L 11/29/20 05:00 Resp 16 11/29/20 05:00 BP 158/70 11/29/20 05:00 Pulse Ox 96 11/29/20 05:00 Intake & Output 11/28/20 11/29/20 11/29/20 18:59 06:59 18:59 Intake Total 1450 925 Balance 1450 925 Intake: Intake, IV Titration 1450 925 Amount Ampicillin-Sulbactam 3 gm 200 200 In Sodium Chloride 0.9% 100 ml @ 200 mls/hr IVPB Q6HR [facility] Rx#:[id number] Sodium Chloride 0.9% 1, 750 225 000 ml @ 75 mls/hr IV . [id number] [facility] Rx#:[id number] Vancomycin 1,750 mg In 500 Sodium Chloride 0.9% 500 ml 500 ml @ 167 mls/hr IVPB Q8H [facility] Rx#: [id number] Vancomycin 1,750 mg In 500 Sodium Chloride 0.9% 500 ml 500 ml @ 167 mls/hr IVPB Q8H [facility] Rx#: [id number] Other: Voiding Method Toilet Toilet - Exam General appearance: The patient is alert, oriented, in no acute distress. HET: Head is normocephalic and atraumatic. Neck: Supple without lymphadenopathy. Trachea midline. Extremities: Right lower extremity with swelling, erythema on dorsal aspect of right foot, dressing on fourth toe clean dry and intact. Palpable DP and PT pulse. Neurological: No focal deficits. Alert and oriented 3. - Labs CBC & Chem 7: 11/27/20 04:34 11/29/20 06:13 Labs: Abnormal Lab Results - Last 24 Hours (Table) 11/28/20 11/28/20 11/28/20 Range/Units 12:53 17:01 20:31 POC Glucose (mg/dL) 176 H 118 H 144 H (75-99) mg/dL C-Reactive Protein (<1.0) mg/dL 11/29/20 11/29/20 Range/Units 06:13 07:30 POC Glucose (mg/dL) 117 H (75-99) mg/dL C-Reactive Protein 1.3 H (<1.0) mg/dL Microbiology - Last 24 Hours (Table) 11/28/20 11:05 Anaerobic Culture - Preliminary Toe - Right Fourth 11/28/20 11:05 Wound Culture - Preliminary Toe - Right Fourth 11/26/20 10:40 Gram Stain - Preliminary Toe - Right Fourth Wound Culture - Preliminary 11/26/20 08:48 Blood Culture - Preliminary Blood No Growth after 48 hours 11/26/20 08:48 Blood Culture - Preliminary Blood No Growth after 48 hours Assessment and Plan Assessment: 1. Diabetic foot ulcer fourth toe with infection status post excisional debridement and deep tissue culture 2. Cellulitis of the right foot 3. History of diabetes mellitus with neuropathy 4. History of hypertension Plan: 1. Continue antibiotics per recommendations from infectious disease 2. Patient is status post excisional debridement of fourth toe on right foot with deep tissue cultures pending 3. Wound care consult placed, patient to follow-up outpatient The impression and plan of care has been dictated as directed. Dr. Resendiz I performed a history and examination of this patient, discussed the same with the dictator. I agree with the dictator's note ,documented as a scribe. Any additional findings or plans will be noted.
[2020-11-29 12:23] LABS: Glucose,Whole Blood 123 mg/dL (75-99)
--- NOTE | 2020-11-29 15:15 | P.PN ---
Subjective This is a pleasant 50 years old male with past medical history of diabetes mellitus, hypertension, he is a patient of Dr. Carbone In the emergency room patient was started on vancomycin and Zosyn He had infected to with wound about 2 weeks ago he went to see his controller repairer and tester Dr. Perez, and today undergo she put him on antibiotics with Cipro and clin damycin however he noticed that his infection and his foot is getting worse so he decided to come to emergency room he had little pain in his foot Denies any other symptoms. No fever. No chest pain or dyspnea. No bowel or urinary complaints His smoking, alcohol or illicit drug Labs showing mild leukocytosis of 13.2, rest of CBC and BMP is unremarkable. Creatinine is normal at 0.7. Is not elevated. Coronavirus not detected. Foot x-ray: No evidence of osteomyelitis. 11/27/2020 Patient right foot cellulitis is improving, otherwise he is asymptomatic WBC is back to normal at 10.2 and creatinine normal at 0.8 Antibiotics switched to Unasyn plus vancomycin, risk of vancomycin nephrotoxici ty is explained for the patient and he agrees. Patient is scheduled for debridement by surgical team tomorrow Hold dose of metformin when he'll be nothing by mouth 11/28/2020 Patient today is with no specific new symptoms. He is status post (right 4th toe excisional debridement and deep tissue culture) by surgical team today. Hemodynamically stable. Creatinine normal. Glucose controlled He remains on broad-spectrum antibiotics of Unasyn and IV vancomycin as gentle hydration Follow-up Final culture results 11/29/2020 Patient with known new symptoms. His wound is healing. Glucose is controlled 117-123. Troponin is normal at 0.7. ESR 29 and C-reactive protein 1.3. Line wound culture is growing beta hemolytic Streptococcus from admission S on IV vancomycin and Unasyn per ID team recommendation. Objective - Vital Signs Vital signs: Vital Signs Temp 97.9 F 11/29/20 12:35 Pulse 58 L 11/29/20 12:35 Resp 16 11/29/20 12:35 BP 151/69 11/29/20 12:35 Pulse Ox 97 11/29/20 12:35 Intake & Output 11/28/20 11/29/20 11/29/20 18:59 06:59 18:59 Intake Total 1450 925 Balance 1450 925 Weight 122.016 kg Intake: Intake, IV Titration 1450 925 Amount Ampicillin-Sulbactam 3 gm 200 200 In Sodium Chloride 0.9% 100 ml @ 200 mls/hr IVPB Q6HR [facility] Rx#:[id number] Sodium Chloride 0.9% 1, 750 225 000 ml @ 75 mls/hr IV . [id number] [facility] Rx#:[id number] Vancomycin 1,750 mg In 500 Sodium Chloride 0.9% 500 ml 500 ml @ 167 mls/hr IVPB Q8H [facility] Rx#: [id number] Vancomycin 1,750 mg In 500 Sodium Chloride 0.9% 500 ml 500 ml @ 167 mls/hr IVPB Q8H [facility] Rx#: [id number] Other: Voiding Method Toilet Toilet - Exam GENERAL: The patient is alert and oriented x3, not in any acute distress. Well developed, well nourished. HEENT: Pupils are round and equally reacting to light. EOMI. No scleral icterus. No conjunctival pallor. Normocephalic, atraumatic. No pharyngeal erythema. No thyromegaly. CARDIOVASCULAR: S1 and S2 present. No murmurs, rubs, or gallops. PULMONARY: Chest is clear to auscultation, no wheezing or crackles. ABDOMEN: Soft, nontender, nondistended, normoactive bowel sounds. No palpable organomegaly. MUSCULOSKELETAL: No joint swelling or deformity. -EXTREMITIES: No cyanosis, clubbing, or pedal edema. Cellulitis of the left lateral foot. With wound and a week at the site of the fourth toe, improving cellulitis NEUROLOGICAL: Gross neurological examination did not reveal any focal deficits. SKIN: No rashes. No petechiae - Labs CBC & Chem 7: 11/27/20 04:34 11/29/20 06:13 Labs: Abnormal Lab Results - Last 24 Hours (Table) 11/28/20 11/28/20 11/29/20 Range/Units 17:01 20:31 06:13 ESR (0-15) mm/Hr POC Glucose (mg/dL) 118 H 144 H (75-99) mg/dL C-Reactive Protein 1.3 H (<1.0) mg/dL 11/29/20 11/29/20 11/29/20 Range/Units 06:13 07:30 12:21 ESR 29 H (0-15) mm/Hr POC Glucose (mg/dL) 117 H 123 H (75-99) mg/dL C-Reactive Protein (<1.0) mg/dL Microbiology - Last 24 Hours (Table) 11/26/20 10:40 Gram Stain - Final Toe - Right Fourth Wound Culture - Final Beta Hemolytic Strep Group G 11/26/20 08:48 Blood Culture - Preliminary Blood No Growth after 72 hours 11/26/20 08:48 Blood Culture - Preliminary Blood No Growth after 72 hours 11/28/20 11:05 Gram Stain - Preliminary Toe - Right Fourth Wound Culture - Preliminary 11/28/20 11:05 Anaerobic Culture - Preliminary Toe - Right Fourth Assessment and Plan Assessment: Acute right foot cellulitis associated with fourth toe wound, diabetic wound, status post right 4th toe excisional debridement and deep tissue culture Diabetes mellitus possible diabetic neuropathy Hypertension obesity with BMI of 36.5 Plan: This is a pleasant 50 years old male who presents with cellulitis and diabetic toe wound. Continue with antibiotics per ID team, currently on IV vancomycin and Unasyn Continue with IV hydration start the patient on normal saline at 75 mL/h Follow-up wound culture Insulin sliding scale, resume home medication vascular surgery team Labs and medication were reviewed.. Continue same treatment. Continue with symptomatic treatment. Resume home medication. Monitor lytes and vitals. DVT and GI prophylaxis. Further recommendations depends on the clinical course of the patient DVT prophylaxis: Subcutaneous heparin GI Prophylaxis: Pepcid PT/OT: Home
--- NOTE | 2020-11-29 17:22 | PN ---
PROGRESS NOTE DATE OF SERVICE: 11/29/2020 REASON FOR FOLLOWUP: Right fourth toe abscess and cellulitis. INTERVAL HISTORY: The patient is afebrile. The patient is currently breathing comfortably. Denies having any chest pain or shortness of breath or cough. No abdominal pain or any worsening pain to the right fourth toe area. PHYSICAL EXAMINATION: Blood pressure 115/69, pulse of 58, temperature 97.9. He is 97% on room air. GENERAL DESCRIPTION: General description is a middle-aged male lying in bed in no distress. RESPIRATORY SYSTEM: Unlabored breathing. Clear to auscultation anteriorly. HEART: S1, S2. Regular rate and rhythm. ABDOMEN: Soft. No tenderness. Right foot is currently dressed. Unable to raise the dressing. DIAGNOSTIC IMPRESSION AND PLAN: Patient with right fourth toe diabetic foot infection with an abscess, status post drainage. Culture now showing group C strep. To continue with Unasyn. Discontinue vancomycin. Waiting for insurance arrangements for possible IV antibiotic on discharge. Continue supportive care. MMODL / IJN: [id number] /
[2020-11-29 17:24] LABS: Glucose,Whole Blood 92 mg/dL (75-99)
[2020-11-29] MEDS: ACETAMINOPHEN TAB 325 MG TAB PO PRN (18:17)
[2020-11-29] MEDS: PROGESTERONE MICRONIZED 200 MG RECTAL SCH (20:16)
[2020-11-29] MEDS: lisinopriL 20 MG TAB PO SCH (20:17)
[2020-11-29] MEDS: ERTUGLIFLOZIN PIDOLATE 15 MG PO SCH (20:17)
[2020-11-29 20:27] LABS: Glucose,Whole Blood 143 mg/dL (75-99)
[2020-11-30] MEDS ORDERED: VANCOMYCIN TROUGH DUE 1 EACH MISC MISCELLANE ONE (04:00)
[2020-11-30 04:35] LABS: African American GFR (CKD) >90 (>60 ml/min/1.73 sqM); Non-African American GFR(CKD) >90 (>60 ml/min/1.73 sqM)
[2020-11-30] MEDS: ACETAMINOPHEN TAB 325 MG TAB PO PRN (05:16)
[2020-11-30] MEDS: SODIUM CHLORIDE 0.9% 1,000 ML IV SCH (05:17)
[2020-11-30] MEDS: AMPICILLIN-SULBACTAM 3 GM in SODIUM CHLORIDE 0.9% 100 ML IVPB SCH ×2 (05:18→12:44)
[2020-11-30] MEDS: LACTATED RINGERS 1,000 ML IV SCH (05:22)
[2020-11-30 07:38] LABS: Glucose,Whole Blood 84 mg/dL (75-99)
[2020-11-30] MEDS: INSULIN ASPART (NovoLOG) 100 UNIT/ML VIAL SQ SCH ×2 (08:24→12:40)
[2020-11-30] MEDS: FAMOTIDINE 20 MG TAB PO SCH (09:37)
[2020-11-30] MEDS: metFORMIN 850 MG TAB PO SCH (09:40)
[2020-11-30] MEDS: HEPARIN SODIUM,PORCINE/PF 5,000 UNIT/0.5 ML SYRINGE SQ SCH (09:42)
[2020-11-30 12:07] LABS: Glucose,Whole Blood 82 mg/dL (75-99)
[2020-11-30 12:14] VITALS: RESP 17; TEMP 97.6
--- NOTE | 2020-11-30 13:59 | P.PN ---
Subjective Progress Note Date: 11/30/20 The patient is seen and examined sitting up in bed. He was admitted for right fourth toe diabetic ulcer with infection and cellulitis of the foot. He is status postop day 2 for right fourth toe excisional debridement and deep tissue culture. Culture is currently pending. Patient remains on IV antibiotics per recommendations from infectious disease. Wound care saw patient and gave wound care instructions, and to also have outpatient follow-up. He remains afebrile. States no pain. Objective - Vital Signs Vital signs: Vital Signs Temp 97.8 F 11/30/20 04:58 Pulse 56 L 11/30/20 04:58 Resp 16 11/30/20 04:58 BP 161/81 11/30/20 04:58 Pulse Ox 96 11/30/20 04:58 Intake & Output 11/29/20 11/30/20 11/30/20 18:59 06:59 18:59 Intake Total 1200 1400 Balance 1200 1400 Weight 122.016 kg Intake: Intake, IV Titration 1200 1100 Amount Ampicillin-Sulbactam 3 gm 100 200 In Sodium Chloride 0.9% 100 ml @ 200 mls/hr IVPB Q6HR [facility] Rx#:[id number] Sodium Chloride 0.9% 1, 600 900 000 ml @ 75 mls/hr IV . [id number] [facility] Rx#:[id number] Vancomycin 1,750 mg In 500 Sodium Chloride 0.9% 500 ml 500 ml @ 167 mls/hr IVPB Q8H [facility] Rx#: [id number] Oral 300 Other: Voiding Method Toilet Toilet # Voids 2 3 - Exam General appearance: The patient is alert, oriented, in no acute distress. HET: Head is normocephalic and atraumatic. Neck: Supple without lymphadenopathy. Trachea midline. Extremities: Right lower extremity with swelling, erythema on dorsal aspect of right foot improving, dressing on fourth toe clean dry and intact. Palpable DP and PT pulse. Neurological: No focal deficits. Alert and oriented 3. - Labs CBC & Chem 7: 11/27/20 04:34 11/30/20 04:05 Labs: Abnormal Lab Results - Last 24 Hours (Table) 11/29/20 11/29/20 11/29/20 Range/Units 06:13 12:21 20:26 ESR 29 H (0-15) mm/Hr POC Glucose (mg/dL) 123 H 143 H (75-99) mg/dL Microbiology - Last 24 Hours (Table) 11/26/20 10:40 Anaerobic Culture - Final Toe - Right Fourth Anaerobic Gm Positive Bacill 11/26/20 10:40 Gram Stain - Final Toe - Right Fourth Wound Culture - Final Beta Hemolytic Strep Group G 11/26/20 08:48 Blood Culture - Preliminary Blood No Growth after 72 hours 11/26/20 08:48 Blood Culture - Preliminary Blood No Growth after 72 hours 11/28/20 11:05 Gram Stain - Preliminary Toe - Right Fourth Wound Culture - Preliminary Assessment and Plan Assessment: 1. Diabetic foot ulcer fourth toe with infection status post excisional debridement and deep tissue culture 2. Cellulitis of the right foot 3. History of diabetes mellitus with neuropathy 4. History of hypertension Plan: 1. Continue antibiotics per recommendations from infectious disease 2. Patient is status post excisional debridement of fourth toe on right foot with deep tissue cultures pending 3. Wound care consult placed, patient to follow-up outpatient Patient is cleared by vascular surgery for discharge once otherwise medically stable. He is to follow-up with Dr. Carson in 2 weeks. The impression and plan of care has been dictated as directed. Dr. Coronado I performed a history and examination of this patient, discussed the same with the dictator. I agree with the dictator's note ,documented as a scribe. Any additional findings or plans will be noted.
--- NOTE | 2020-11-30 14:57 | PN ---
PROGRESS NOTE DATE OF SERVICE: 11/30/2020 REASON FOR FOLLOWUP: Right fourth toe abscess and cellulitis. INTERVAL HISTORY: The patient is afebrile. He is feeling better, breathing comfortably. Overall pain and discomfort to the right foot has significantly improved. No chest pain, shortness of breath or cough. No abdominal pain or diarrhea. PHYSICAL EXAMINATION: Blood pressure 131/82 with a pulse of 61, temperature 98.6. He is 97% on room air. GENERAL DESCRIPTION: General description is a middle-aged male lying in bed in no distress. RESPIRATORY SYSTEM: Unlabored breathing. Clear to auscultation anteriorly. HEART: S1, S2. Regular rate and rhythm. ABDOMEN: Soft. No tenderness. Right foot swelling has much improved. Toe swelling has much improved as well. LABS: Culture has been positive for anaerobes and beta-hemolytic group C strep. DIAGNOSTIC IMPRESSION AND PLAN: Patient with a right fourth toe abscess and cellulitis, status post drainage. Culture with strep and anaerobes. Overall improvement on Unasyn; to finish therapy with oral Augmentin. Prescription sent to the pharmacy. Close outpatient followup. MMODL / IJN: [id number] /
[2020-11-30] MEDS ORDERED: amLODIPine 5 MG TAB PO SCH (15:15)
[2020-11-30 16:43] VITALS: BP 147/80; PULSE 52
[2020-12-01] MEDS ORDERED: ESTRADIOL VALERATE 40 MG/ML IM SCH (21:00)
== END 2020-11-30 17:45 | disposition home health service (06) | DRG 623 ==
LOC: EC 07:52 → 5NMEDONC 09:05 → 6NMEDSUR 11-27 04:44 → 5NMEDONC 11-27 17:18
PROVIDERS: ADMIT Internal Medicine; ATTEND Internal Medicine
PROC: 0JBQ0ZZ Excision of Right Foot Subcutaneous Tissue and Fascia, Open Approach (ICD-10-PCS; principal; 2020-11-28)
DX: E11.621 Type 2 diabetes mellitus with foot ulcer (principal); L02.611 Cutaneous abscess of right foot; L03.115 Cellulitis of right lower limb; Z20.822 Contact with and (suspected) exposure to COVID-19; B95.7 Other staphylococcus as the cause of diseases classified elsewhere; L97.512 Non-pressure chronic ulcer of other part of right foot with fat layer exposed; E11.42 Type 2 diabetes mellitus with diabetic polyneuropathy; E11.628 Type 2 diabetes mellitus with other skin complications; E66.9 Obesity, unspecified; F17.210 Nicotine dependence, cigarettes, uncomplicated; I10 Essential (primary) hypertension; L03.031 Cellulitis of right toe; Z68.36 Body mass index [BMI] 36.0-36.9, adult; Z79.84 Long term (current) use of oral hypoglycemic drugs; Z79.899 Other long term (current) drug therapy
CPT/HCPCS: 36415; 80048; 80053; 80202; 82565; 83605; 85025; 85652; 86140; 87040; 87070; 87075; 87205; 87635; 99284

== ENCOUNTER → 2021-06-11 | Outpatient (CLI) | payer OTHER ==
--- NOTE | 2021-06-12 01:14 | MR ---
EXAMINATION TYPE: MR foot RT wo con DATE OF EXAM: 06/11/2021 COMPARISON: None HISTORY: Right foot swelling, 4th toe amputated 6 weeks ago, osteomyelitis Multiplanar multiecho imaging of the right foot without contrast. There is increased signal on the T2 images in the distal third metatarsal. This has corresponding dec reased signal on the T1 images. No fracture line seen. There is a posterior dislocation of the second MP joint. There is some mild decreased T1 signal in th e proximal phalanx of the third toe. There is diffuse soft tissue edema involving the forefoot. There is amputation deformity of the fourt h toe. There is narrowing and spurring at the first MP joint. No drainable fluid collection. The bones of th e hindfoot appear intact with plantar and Achilles calcaneal spurring. Medial and lateral flexor tend ons of the foot appear intact Achilles tendon is intact. IMPRESSION: Abnormal signal in the distal third metatarsal and the proximal phalanx of the third toe suggestive o f osteomyelitis. Soft tissue swelling of the forefoot suggestive of cellulitis. Posterior dislocation of the second MP joint. 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
== END | disposition home or self-care (01) ==
LOC: RADMRIMAIN 21:32
PROVIDERS: ATTEND Podiatrist Foot & Ankle Surgery
DX: M19.071 Primary osteoarthritis, right ankle and foot (principal); M79.89 Other specified soft tissue disorders; M24.474 Recurrent dislocation, right foot

== ENCOUNTER → 2021-12-17 | Outpatient (CLI) | payer OTHER ==
[2021-12-17 18:00] LABS: Basophils # (A) 0.07 X 10*3/uL (0.00-0.10); Basophils % (A) 0.8 %; Eosinophils # (A) 0.39 X 10*3/uL (0.04-0.35); Eosinophils % (A) 4.5 %; HCT 39.9 % (39.6-50.0); HGB 13.3 g/dL (13.0-17.0); Immature Grans, Automated 0.5 %; Lymphocytes # (A) 1.91 X 10*3/uL (0.90-5.00); Lymphocytes % (A) 22.3 %; MCH 29.7 pg (27.0-32.0); MCHC 33.3 g/dL (32.0-37.0); MCV 89.1 fL (80.0-97.0); Monocytes # (A) 0.67 X 10*3/uL (0.20-1.00); Monocytes % (A) 7.8 %; NRBC Per 100 WBC 0 /100 WBCS (0.0-0.0); Neutrophils % (A) 64.1 %; Platelet Count 307 X 10*3/uL (140-440); RBC 4.48 X 10*6/uL (4.40-5.60); RDW 12.7 % (11.5-14.5); WBC 8.58 X 10*3/uL (4.50-10.00)
[2021-12-17 18:24] LABS: Anion Gap 9.2 mmol/L (10.00-18.00); BUN/Creat Ratio 13.2 Ratio (12.00-20.00); Blood Urea Nitrogen 13.2 mg/dL (9.0-27.0); C Reactive Protein 0.3 mg/dL (0.00-0.80); Calcium 9.2 mg/dL (8.7-10.3); Carbon Dioxide 23.8 mmol/L (20.0-27.5); Potassium 4.6 mmol/L (3.5-5.5)
[2021-12-17 19:27] LABS: Erythrocyte Sedimentation Rate 9 mm/Hr (0-15)
== END | disposition home or self-care (01) ==
LOC: LABWHC1 11:38
PROVIDERS: ATTEND Internal Medicine
DX: L02.612 Cutaneous abscess of left foot (principal); L02.611 Cutaneous abscess of right foot
CPT/HCPCS: 36415; 80048; 80202; 85025; 85652; 86140

== ENCOUNTER 2022-01-23 13:46 | Inpatient (IN) | payer OTHER ==
[2022-01-23] MEDS ORDERED: VANCOMYCIN IV PER PHARMACY 1 EACH MISC MISCELLANE PRN (14:04)
[2022-01-23] MEDS ORDERED: PIPERACILLIN-TAZOBACTAM 3.375 GM in SODIUM CHLORIDE 0.9% 100 ML IVPB STA (14:08)
--- NOTE | 2022-01-23 14:08 | ED ---
General Adult HPI - General Chief complaint: Skin/Abscess/Foreign Body Stated complaint: rt foot wound Time Seen by Provider: 01/23/22 13:53 Source: patient, RN notes reviewed Mode of arrival: ambulatory Limitations: no limitations - History of Present Illness Initial comments: This a 51-year-old patient presents emergency Department with chief complaint of right foot infection. Patient states that there has been a wound of the foot for several months which is currently followed by podiatry and is had prior imitations of digits 3 through 5 most recently October. Patient is a known diabetic but sugar somewhat controlled last A1c around 6. Patient's noticed increasing redness, swelling of the second digit last few days as advised by podiatry to be admitted to the hospital. Patient states PCP is Dr. Carbone - Related Data Home Medications Medication Instructions Recorded Confirmed lisinopriL 20 mg PO HS 02/06/19 06/18/21 Progesterone, Micronized 200 mg PO HS 01/28/20 06/18/21 [Progesterone] Estradiol Valerate 40mg/Ml 20 mg IM Q5D 11/27/20 06/18/21 Empagliflozin [Jardiance] 25 mg PO HS 06/15/21 06/18/21 Omeprazole/Sodium Bicarbonate 1 each PO DAILY 06/15/21 06/18/21 [Zegerid 20 mg Capsule] amLODIPine [Norvasc] 5 mg PO HS 06/18/21 06/18/21 Previous Rx's Medication Instructions Recorded metFORMIN HCL ER [Glucophage XR] 500 mg PO BID #30 tab 11/30/20 Allergies Allergy/AdvReac Type Severity Reaction Status Date / Time No Known Allergies Allergy Verified 01/23/22 13:51 Review of Systems ROS Statement: Those systems with pertinent positive or pertinent negative responses have been documented in the HPI. ROS Other: All systems not noted in ROS Statement are negative. Past Medical History Past Medical History: Diabetes Mellitus, GERD/Reflux, Hypertension Additional Past Medical History / Comment(s): NEUROPATHY IN FEET History of Any Multi-Drug Resistant Organisms: None Reported Additional Past Surgical History / Comment(s): retina reattachment x2, right foot -amputation of 4th toe, right great toe , left foot of 4th LESSER -toe ,PATIENT STATES INFECTION OF BONE -3RD LESSER TOE Past Anesthesia/Blood Transfusion Reactions: No Reported Reaction Past Psychological History: No Psychological Hx Reported Smoking Status: Former smoker Past Alcohol Use History: None Reported Past Drug Use History: None Reported - Past Family History Father Family Medical History: Coronary Artery Disease (CAD), Hypertension Mother Family Medical History: Coronary Artery Disease (CAD) General Exam Limitations: no limitations General appearance: alert, in no apparent distress Head exam: Present: atraumatic, normocephalic, normal inspection Eye exam: Present: normal appearance, PERRL, EOMI. Absent: scleral icterus, conjunctival injection, periorbital swelling Respiratory exam: Present: normal lung sounds bilaterally. Absent: respiratory distress, wheezes, rales, rhonchi, stridor Cardiovascular Exam: Present: regular rate, normal rhythm, normal heart sounds. Absent: systolic murmur, diastolic murmur, rubs, gallop, clicks GI/Abdominal exam: Present: soft, normal bowel sounds. Absent: distended, tenderness, guarding, rebound, rigid Extremities exam: Present: other (Right foot plantar aspect there is open diabetic ulceration with small moderate bleeding, prior amputation digits 3-5, erythema noted digit 2) Course Vital Signs 01/23/22 13:48 Temperature 98.0 F Pulse Rate 70 Respiratory 20 Rate Blood Pressure 134/82 O2 Sat by Pulse 97 Oximetry Medical Decision Making - Medical Decision Making 51-year-old presents from for right foot infection patient does have (diabetic ulceration, cellulitis, concerns symptoms for cellulitis. Patient will be admitted for IV antibiotics, vascular surgery. Disposition Clinical Impression: Diabetic infection of right foot, Cellulitis of right foot Disposition: ADMITTED IP TO THIS HOSP Condition: Fair Referrals: Elvia Carbone III, MD [Primary Care Provider] - 1-2 days Time of Disposition: 15:02
[2022-01-23] MEDS ORDERED: VANCOMYCIN 2,500 MG in SODIUM CHLORIDE 0.9% 500 ML 500 ML IVPB ONE (15:00)
[2022-01-23] MEDS ORDERED: ACETAMINOPHEN TAB 325 MG TAB PO PRN (15:29)
[2022-01-23] MEDS ORDERED: NALOXONE 0.4 MG/ML 1 ML VIAL IV PRN (15:29)
[2022-01-23] MEDS ORDERED: DEXTROSE 50% SYRINGE 50 ML IVP PRN ×2 (15:31)
--- NOTE | 2022-01-23 15:32 | XR ---
EXAMINATION TYPE: XR foot complete RT DATE OF EXAM: 01/23/2022 CLINICAL HISTORY: pain TECHNIQUE: Frontal, lateral and oblique images of the right foot are obtained. COMPARISON: 11/26/2020 FINDINGS: There has been interval amputation of the third digit to the proximal base of the third met atarsal as well as the fourth and fifth phalanges. There is dislocation of the second metatarsal phal angeal joint. There is soft tissue edema noted as well as soft tissue air. Air forming infection is n ot excluded. Periosteal reaction along the lateral margin of the proximal phalanx second digit. Sever e degenerative change first metatarsal phalangeal joint with underlying bony sclerosis. IMPRESSION: Findings as discussed above for which I cannot exclude osteomyelitis of the proximal phalanx of the r ight second toe. Soft tissue edema with soft tissue air may reflect airforming infection. Amputation changes as noted.
[2022-01-23 15:42] LABS: Basophils # (A) 0.1 k/uL (0-0.2); Basophils % (A) 1 %; Eosinophils # (A) 0.8 k/uL (0-0.7); Eosinophils % (A) 7 %; HCT 39.2 % (39.0-53.0); HGB 13.7 gm/dL (13.0-17.5); Lymphocytes # (A) 1.9 k/uL (1.0-4.8); Lymphocytes % (A) 16 %; MCH 29.6 pg (25.0-35.0); MCHC 34.9 g/dL (31.0-37.0); MCV 84.8 fL (80.0-100.0); Mean Platelet Volume 7.7; Monocytes # (A) 0.7 k/uL (0-1.0); Monocytes % (A) 6 %; Neutrophils # (A) 8.2 k/uL (1.3-7.7); Neutrophils % (A) 70 %; Platelet Count 439 k/uL (150-450); Poikilocytosis Slight; RBC 4.62 m/uL (4.30-5.90); RDW 13.5 % (11.5-15.5); WBC 11.7 k/uL (3.8-10.6)
[2022-01-23 15:56] LABS: Albumin 3.9 g/dL (3.5-5.0); C Reactive Protein 4.1 mg/dL (<1.0); Calcium 9.2 mg/dL (8.4-10.2); Total Bilirubin 0.6 mg/dL (0.2-1.3); Total Protein 7.1 g/dL (6.3-8.2)
[2022-01-23 16:03] LABS: Potassium 4.3 mmol/L (3.5-5.1)
[2022-01-23 17:01] LABS: Glucose,Whole Blood 116 mg/dL (70-110)
[2022-01-23] MEDS: INSULIN ASPART (NovoLOG) 100 UNIT/ML VIAL SQ SCH ×2 (17:48→21:18)
[2022-01-23] MEDS: SODIUM CHLORIDE 0.9% 1,000 ML IV SCH (19:34)
[2022-01-23 21:15] LABS: Glucose,Whole Blood 133 mg/dL (70-110)
[2022-01-23] MEDS: PIPERACILLIN-TAZOBACTAM 3.375 GM in SODIUM CHLORIDE 0.9% 100 ML IVPB SCH (21:31)
[2022-01-24] MEDS: VANCOMYCIN 2,250 MG in SODIUM CHLORIDE 0.9% 500 ML 500 ML IVPB SCH ×2 (05:58→19:22)
[2022-01-24] MEDS: SODIUM CHLORIDE 0.9% 1,000 ML IV SCH ×2 (06:03→20:46)
[2022-01-24 06:08] LABS: Glucose,Whole Blood 129 mg/dL (70-110)
[2022-01-24] MEDS: INSULIN ASPART (NovoLOG) 100 UNIT/ML VIAL SQ SCH ×4 (07:37→20:47)
[2022-01-24] MEDS: PIPERACILLIN-TAZOBACTAM 3.375 GM in SODIUM CHLORIDE 0.9% 100 ML IVPB SCH ×2 (09:09→15:10)
--- NOTE | 2022-01-24 11:41 | P.GSCN ---
History of Present Illness Consult date: 01/24/22 Reason for Consult: Diabetic foot ulcers, right foot osteomyelitis Requesting physician: Duke Parsons History of present illness: This is a pleasant 51-year-old patient who prefers pronoun she/her and goes by preferred name Stephanie. She came into the emergency department for concerns of right diabetic foot infection. Past medical history includes diabetes mellitus, chronic nonhealing diabetic ulcers, hypertension, GERD, and peripheral neuropathy. States she has had the wound for several months and has been follo wing with [facility] Dr. Richmond. Back in August patient had third and fourth toes done at [facility]. Patient had x-ray of the right foot completed in the emergency department with reported findings of dislocation of the second metatarsal phalangeal joint. Soft tissue edema noted as well as soft tissue air. Airforming infection not excluded. Periosteal reaction along the lateral margin of the proximal phalanx second digit. Severe degenerative change first metatarsal phalangeal joint with underlying bony sclerosis. The patient denies any fever, chills, body aches, abdominal pain, nausea or vomiting. States no pain, has no feeling and feet. She currently has a special shoe being made at [employer] [employer]. Vascular surgery consulted for chronic nonhealing wound, osteomyelitis. Review of Systems A 14 point review systems was completed all pertinent positives and negatives as stated in the HPI. Past Medical History Past Medical History: Diabetes Mellitus, GERD/Reflux, Hypertension Additional Past Medical History / Comment(s): NEUROPATHY IN FEET History of Any Multi-Drug Resistant Organisms: None Reported Additional Past Surgical History / Comment(s): retina reattachment x2, right foot -amputation of 4th toe, right great toe , left foot of 4th LESSER -toe ,PATIENT STATES INFECTION OF BONE -3RD LESSER TOE Past Anesthesia/Blood Transfusion Reactions: No Reported Reaction Past Psychological History: No Psychological Hx Reported Smoking Status: Former smoker Past Alcohol Use History: None Reported Additional Past Alcohol Use History / Comment(s): started smoking at age 20 quit at age 37 smoked 1/2 pack a month Past Drug Use History: None Reported - Past Family History Father Family Medical History: Coronary Artery Disease (CAD), Hypertension Mother Family Medical History: Coronary Artery Disease (CAD) Medications and Allergies Home Medications Medication Instructions Recorded Confirmed Type lisinopriL 20 mg PO HS 02/06/19 01/23/22 History Progesterone, Micronized 200 mg PO HS 01/28/20 01/23/22 History [Progesterone] metFORMIN HCL ER [Glucophage XR] 500 mg PO BID #30 tab 11/30/20 01/23/22 Rx Empagliflozin [Jardiance] 25 mg PO HS 06/15/21 01/23/22 History amLODIPine [Norvasc] 5 mg PO HS 06/18/21 01/23/22 History Dutasteride 0.5 mg PO HS 01/23/22 01/23/22 History Ergocalciferol (Vitamin D2) 1,250 mcg PO TREVIZO 01/23/22 01/23/22 History [Drisdol (50,000 Iu)] Estradiol Valerate 1 dose IM Q3D 01/23/22 01/23/22 History Propranolol HCl [Propranolol HCl 120 mg PO DAILY 01/23/22 01/23/22 History ER] Allergies Allergy/AdvReac Type Severity Reaction Status Date / Time No Known Allergies Allergy Verified 01/23/22 16:01 Surgical - Exam Vital Signs Temp Pulse Resp BP Pulse Ox 98.0 F 70 20 134/82 97 01/23/22 13:48 01/23/22 13:48 01/23/22 13:48 01/23/22 13:48 01/23/22 13:48 General appearance: The patient is alert, oriented, appears in no acute distress. HET: Head is normocephalic and atraumatic. Pupils are equal and reactive. Neck: Supple. Heart: S1 S2. Regular rate and rhythm. Lungs: Clear to auscultation bilaterally. Abdomen: Soft, nontender, nondistended. Extremities: Bilateral palpable dorsalis pedis pulses, good capillary refill. Diabetic ulcer on plantar aspect of the right foot just below the second toe. Wound is approximately 2-1/2 cm deep to the bone with drainage, calloused around the ulcer however no redness. Patient has prior third through fifth toe amputation. Left foot great toe plantar aspect with diabetic ulcer/callous with small amount of non-odorous drainage. Neurological: No focal deficits. Strength and sensation are grossly intact. Results - Labs 01/23/22 15:00 01/23/22 15:00 Abnormal Lab Results - Last 24 Hours (Table) 01/23/22 01/23/22 01/23/22 Range/Units 15:00 15:00 15:00 WBC 11.7 H (3.8-10.6) k/uL Neutrophils # 8.2 H (1.3-7.7) k/uL Eosinophils # 0.8 H (0-0.7) k/uL Glucose 146 H (74-99) mg/dL POC Glucose (mg/dL) (70-110) mg/dL Hemoglobin A1c (0.0-6.0) % Plasma Lactic Acid Daniel 2.4 H* (0.7-2.0) mmol/L C-Reactive Protein 4.1 H (<1.0) mg/dL 01/23/22 01/23/22 01/23/22 Range/Units 15:00 16:59 21:14 WBC (3.8-10.6) k/uL Neutrophils # (1.3-7.7) k/uL Eosinophils # (0-0.7) k/uL Glucose (74-99) mg/dL POC Glucose (mg/dL) 116 H 133 H (70-110) mg/dL Hemoglobin A1c 6.6 H (0.0-6.0) % Plasma Lactic Acid Daniel (0.7-2.0) mmol/L C-Reactive Protein (<1.0) mg/dL 01/24/22 Range/Units 06:06 WBC (3.8-10.6) k/uL Neutrophils # (1.3-7.7) k/uL Eosinophils # (0-0.7) k/uL Glucose (74-99) mg/dL POC Glucose (mg/dL) 129 H (70-110) mg/dL Hemoglobin A1c (0.0-6.0) % Plasma Lactic Acid Daniel (0.7-2.0) mmol/L C-Reactive Protein (<1.0) mg/dL Microbiology - Last 24 Hours (Table) 01/23/22 14:46 Gram Stain - Preliminary Foot - Right Wound Culture - Preliminary Diabetes panel 01/23/22 01/23/22 Range/Units 15:00 15:00 Sodium 137 (137-145) mmol/L Potassium 4.3 (3.5-5.1) mmol/L Chloride 106 (98-107) mmol/L Carbon Dioxide 22 (22-30) mmol/L BUN 11 (9-20) mg/dL Creatinine 0.73 (0.66-1.25) mg/dL Glucose 146 H (74-99) mg/dL Hemoglobin A1c 6.6 H (0.0-6.0) % Calcium 9.2 (8.4-10.2) mg/dL AST 34 (17-59) U/L ALT 18 (4-49) U/L Alkaline Phosphatase 80 (38-126) U/L Total Protein 7.1 (6.3-8.2) g/dL Albumin 3.9 (3.5-5.0) g/dL Calcium panel 01/23/22 Range/Units 15:00 Calcium 9.2 (8.4-10.2) mg/dL Albumin 3.9 (3.5-5.0) g/dL Pituitary panel 01/23/22 Range/Units 15:00 Sodium 137 (137-145) mmol/L Potassium 4.3 (3.5-5.1) mmol/L Chloride 106 (98-107) mmol/L Carbon Dioxide 22 (22-30) mmol/L BUN 11 (9-20) mg/dL Creatinine 0.73 (0.66-1.25) mg/dL Glucose 146 H (74-99) mg/dL Calcium 9.2 (8.4-10.2) mg/dL Adrenal panel 01/23/22 Range/Units 15:00 Sodium 137 (137-145) mmol/L Potassium 4.3 (3.5-5.1) mmol/L Chloride 106 (98-107) mmol/L Carbon Dioxide 22 (22-30) mmol/L BUN 11 (9-20) mg/dL Creatinine 0.73 (0.66-1.25) mg/dL Glucose 146 H (74-99) mg/dL Calcium 9.2 (8.4-10.2) mg/dL Total Bilirubin 0.6 (0.2-1.3) mg/dL AST 34 (17-59) U/L ALT 18 (4-49) U/L Alkaline Phosphatase 80 (38-126) U/L Total Protein 7.1 (6.3-8.2) g/dL Albumin 3.9 (3.5-5.0) g/dL Assessment and Plan Assessment: 1. Right diabetic foot ulcer, likely osteomyelitis 2. Left great toe ulcer 3. Type 2 diabetes mellitus 4. Peripheral neuropathy 5. Previous right foot toes 3 through 5 amputation due to underlying osteomyelitis Plan: 1. Continue IV antibiotics per recommendations from infectious disease 2. Local Wound care per ID 3. Bedside debridement planned 4. Nuclear med three-phase bone scan ordered 5. Wound cultures currently pending 6. Further recommendations forthcoming per vascular surgery based on clinical course Thank you for this consultation, we will continue to follow. The impression and plan of care has been dictated as directed. Dr. Jacobs I performed a history and examination of this patient, discussed the same with the dictator. I agree with the dictator's note ,documented as a scribe. Any additional findings or plans will be noted.
[2022-01-24 12:01] LABS: Glucose,Whole Blood 122 mg/dL (70-110)
--- NOTE | 2022-01-24 13:51 | P.OP ---
Date of Procedure: 01/24/22 Preoperative Diagnosis: #1: Nonhealing ulcer plantar surface of the right foot. #2: Callus formation first metatarsal head left foot. #3: Diabetes mellitus with diabetic vascular disease. Postoperative Diagnosis: Same, plus clinical osteomyelitis second/third metatarsal right foot. Procedure(s) Performed: #1: Sharp Excisional debridement right foot plantar surface wound. #2: Shaving of callus first metatarsal head left foot. Implants: None. Anesthesia: none Surgeon: Yaya Coronado Estimated Blood Loss (ml): 2 IV fluids (ml): 0 Urine output (ml): 0 Pathology: none sent Condition: stable Disposition: no change Indications for Procedure: Patient is a 51-year-old male who was admitted for nonhealing ulceration of the plantar surface right foot. The patient has a long history of diabetes mellitus and has undergone amputation of the fifth fourth and third toes of the right foot. He has been treating this wound as an outpatient with podiatry without significant improvement. Patient presented to the emergency room and was subsequently admitted for IV antibiotics. Surgical consultation was requested regarding debridement. Operative Findings: Clinical osteomyelitis right foot Description of Procedure: Patient was kept in his bed. No anesthesia was necessary as the patient has severe diabetic neuropathic pathology. There is a 2 cm x 3 cm open wound of the plantar surface right foot. Callus is surrounding the wound. This was shaved down with a surgical scalpel. Additionally utilizing a surgical scalpel the wound was debrided sharply. The second and third metatarsal bones were evident/exposed. No purulence was noted. There is no evidence of undermining or tunneling. It is estimated the wound Was 2 cm. The wound was then packed with strip gauze and dressed. Shaving of the callus at the first metatarsal head of the left foot was then performed. Patient tolerated the procedure well.
[2022-01-24] MEDS: PROPRANOLOL LA 60 MG CAP.SA.24H PO SCH (15:01)
[2022-01-24 16:55] LABS: Glucose,Whole Blood 121 mg/dL (70-110)
[2022-01-24] MEDS: HEPARIN SODIUM,PORCINE/PF 5,000 UNIT/0.5 ML SYRINGE SQ SCH (17:54)
[2022-01-24 20:36] LABS: Glucose,Whole Blood 137 mg/dL (70-110)
[2022-01-24] MEDS: lisinopriL 20 MG TAB PO SCH ×2 (20:45→20:59)
[2022-01-24] MEDS: amLODIPine 5 MG TAB PO SCH (20:50)
[2022-01-24] MEDS: FINASTERIDE 5 MG TAB PO SCH (20:51)
[2022-01-24] MEDS: HYDROcodone/APAP 5-325MG 1 EACH TAB PO PRN (20:52)
[2022-01-24] MEDS ORDERED: NON FORMULARY DRUG (Empagliflozin [Jardiance] 25 MG Tablet) PO SCH (21:00)
[2022-01-25] MEDS: HEPARIN SODIUM,PORCINE/PF 5,000 UNIT/0.5 ML SYRINGE SQ SCH ×3 (00:26→19:32)
[2022-01-25] MEDS: PIPERACILLIN-TAZOBACTAM 3.375 GM in SODIUM CHLORIDE 0.9% 100 ML IVPB SCH ×3 (00:27→18:15)
--- NOTE | 2022-01-25 00:27 | P.HPIM ---
History of Present Illness H&P Date: 01/24/22 Chief Complaint: Foot infection Patient is a 51-year-old patient with a history of diabetes type 2 [id number], hypertension, diabetic peripheral neuropathy and prior history of smoking and also history of to amputation and retinal detachment presents to ER with complaints of right foot infection. Patient has been having wound on the plantar surface of the foot overlying first metatarsal head for several months and is being followed by podiatry as an outpatient. Patient did have amputation of the third fourth and fifth digits on the right. Patient has been having worsening redness and swelling and pain for the past 1 week and was seen by podiatry and recommended to go to ER. Patient states that his blood sugar is well controlled and A1c only 6.1. Denies any chest pain or shortness of breath. No nausea vomiting abdominal pain or diarrhea. X-ray of the foot showed findings as discussed above which cannot exclude osteomyelitis of the proximal phalanx of his right second toe. Soft tissue edema with soft tissue 8 nedaplatin 8 forming infection. Amputation changes as noted. Laboratory test showed WBC is 11.7, hemoglobin 13.7 and platelets 439 Sodium 137 potassium 4.8 chloride 106 bicarb 22 BUN 11 creatinine 0.73 and blood sugar 146 A1c 6.6 lactic acid 2.4 admission urine is not elevated. Review of Systems Constitutional: Patient denies any fever or chills . no Generalized weakness. Abdomen: Patient denied any nausea or vomiting or abd. pain Cardiovascular: Patient denies any chest pain or short of breath no pal pitations. Respiratory: patient denied any cough . no sputum production. No shortness of breath Neurologic: Patient denied any numbness or tingling headache. Musculoskeletal: Patient denies any complaints of joint swelling or deformity. Skin: Negative Psychiatric: Negative Endocrine: No heat or cold intolerance. No recent weight gain. Genitourinary: No dysuria or hematuria. All other 14 point ROS negative except the above Past Medical History Past Medical History: Diabetes Mellitus, GERD/Reflux, Hypertension Additional Past Medical History / Comment(s): NEUROPATHY IN FEET History of Any Multi-Drug Resistant Organisms: None Reported Additional Past Surgical History / Comment(s): retina reattachment x2, right foot -amputation of 4th toe, right great toe , left foot of 4th LESSER -toe ,PATIENT STATES INFECTION OF BONE -3RD LESSER TOE Past Anesthesia/Blood Transfusion Reactions: No Reported Reaction Past Psychological History: No Psychological Hx Reported Smoking Status: Former smoker Past Alcohol Use History: None Reported Additional Past Alcohol Use History / Comment(s): started smoking at age 20 quit at age 37 smoked 1/2 pack a month Past Drug Use History: None Reported - Past Family History Father Family Medical History: Coronary Artery Disease (CAD), Hypertension Mother Family Medical History: Coronary Artery Disease (CAD) Medications and Allergies Home Medications Medication Instructions Recorded Confirmed Type lisinopriL 20 mg PO HS 02/06/19 01/23/22 History Progesterone, Micronized 200 mg PO HS 01/28/20 01/23/22 History [Progesterone] metFORMIN HCL ER [Glucophage XR] 500 mg PO BID #30 tab 11/30/20 01/23/22 Rx Empagliflozin [Jardiance] 25 mg PO HS 06/15/21 01/23/22 History amLODIPine [Norvasc] 5 mg PO HS 06/18/21 01/23/22 History Dutasteride 0.5 mg PO HS 01/23/22 01/23/22 History Ergocalciferol (Vitamin D2) 1,250 mcg PO TREVIZO 01/23/22 01/23/22 History [Drisdol (50,000 Iu)] Estradiol Valerate 1 dose IM Q3D 01/23/22 01/23/22 History Propranolol HCl [Propranolol HCl 120 mg PO DAILY 01/23/22 01/23/22 History ER] Allergies Allergy/AdvReac Type Severity Reaction Status Date / Time No Known Allergies Allergy Verified 01/23/22 16:01 Physical Exam Vitals: Vital Signs Temp Pulse Pulse Resp BP BP Pulse Ox 01/24/22 08:00 97.5 F 63 16 152/75 95 01/24/22 01:43 97.9 F 59 17 146/74 98 01/23/22 19:57 98.1 F 60 17 149/83 97 01/23/22 18:12 18 01/23/22 16:55 97.7 F 63 16 136/95 97 01/23/22 16:36 97.6 F 63 18 132/74 99 01/23/22 13:48 98.0 F 70 20 134/82 97 Intake and Output 01/23/22 01/24/22 01/24/22 22:59 06:59 14:59 Intake Total 450 600 Balance 450 600 Intake: Intake, IV Titration 150 Amount Sodium Chloride 0.9% 1, 150 000 ml @ 75 mls/hr IV . [id number] [facility] Rx#:[id number] Oral 300 600 Other: # Voids 1 2 Weight 124.738 kg PHYSICAL EXAMINATION: Patient is lying in the bed comfortably, no acute distress, awake alert and oriented.. HEENT: Normocephalic. Neck is supple. Pupils reactive. Nostrils clear. Oral cavity is moist. Neck reveals no JVD, carotid bruits, or thyromegaly. CHEST EXAMINATION: Trachea is central. Symmetrical expansion. Lung castañeda clear to auscultation and percussion. CARDIAC: Normal S1, S2 with no gallops. No murmurs ABDOMEN: Soft. Bowel sounds present. Nontender. No organomegaly. No abdominal bruits. Extremities: reveal no edema. No clubbing or cyanosis Right foot ulcer plantar aspect of the first metatarsal and amputation of the second third and fourth toes. Purulent base. Left great toe ulcer. Neurologically awake, alert, oriented x3 with well-coordinated movements. No focal deficits noted Skin: No rash or skin lesions. Psychiatric: Coperative. Nonsuicidal, Musculoskeletal: No joint swelling or deformity. Normal range of motion. Results CBC & Chem 7: 01/23/22 15:00 01/23/22 15:00 Labs: Abnormal Lab Results - Last 24 Hours (Table) 01/23/22 01/23/22 01/23/22 Range/Units 15:00 15:00 15:00 WBC 11.7 H (3.8-10.6) k/uL Neutrophils # 8.2 H (1.3-7.7) k/uL Eosinophils # 0.8 H (0-0.7) k/uL Glucose 146 H (74-99) mg/dL POC Glucose (mg/dL) (70-110) mg/dL Hemoglobin A1c (0.0-6.0) % Plasma Lactic Acid Daniel 2.4 H* (0.7-2.0) mmol/L C-Reactive Protein 4.1 H (<1.0) mg/dL 01/23/22 01/23/22 01/23/22 Range/Units 15:00 16:59 21:14 WBC (3.8-10.6) k/uL Neutrophils # (1.3-7.7) k/uL Eosinophils # (0-0.7) k/uL Glucose (74-99) mg/dL POC Glucose (mg/dL) 116 H 133 H (70-110) mg/dL Hemoglobin A1c 6.6 H (0.0-6.0) % Plasma Lactic Acid Daniel (0.7-2.0) mmol/L C-Reactive Protein (<1.0) mg/dL 01/24/22 01/24/22 Range/Units 06:06 11:59 WBC (3.8-10.6) k/uL Neutrophils # (1.3-7.7) k/uL Eosinophils # (0-0.7) k/uL Glucose (74-99) mg/dL POC Glucose (mg/dL) 129 H 122 H (70-110) mg/dL Hemoglobin A1c (0.0-6.0) % Plasma Lactic Acid Daniel (0.7-2.0) mmol/L C-Reactive Protein (<1.0) mg/dL Microbiology - Last 24 Hours (Table) 01/23/22 14:46 Gram Stain - Preliminary Foot - Right Wound Culture - Preliminary Thrombosis Risk Factor Assmnt - DVT/VTE Prophylaxis DVT/VTE Prophylaxis: Pharmacologic Prophylaxis ordered - Choose All That Apply Any of the Below Risk Factors Present?: Yes Each Factor Represents 1 point: Age 41-60 years, Obesity (BMI >25) Other Risk Factors: No Thrombosis Risk Factor Assessment Total Risk Factor Score: 2 Thrombosis Risk Factor Assessment Level: Low Risk Assessment and Plan Assessment: Right diabetic foot infection with plantar ulcer over the head of the first metatarsal. Cannot exclude osteomyelitis. Left great toe ulcer. Diabetes type 2 [id number] Diabetic peripheral neuropathy History of retinal detachment History of prior to amputations DVT prophylaxis Plan: Patient continued on antibiotics abdominal vancomycin and Zosyn at this time. Vascular surgery has seen the patient and debridement of the wound was done. Follow-up deep wound cultures. Continue broad-spectrum antibiotics. Continued home blood pressure medications and insulin sliding scale. Pain dagoberto gement and follow-up closely. Time with Patient: Greater than 30
[2022-01-25] MEDS: VANCOMYCIN 2,250 MG in SODIUM CHLORIDE 0.9% 500 ML 500 ML IVPB SCH (04:47)
[2022-01-25 06:12] LABS: Glucose,Whole Blood 116 mg/dL (70-110)
[2022-01-25] MEDS: INSULIN ASPART (NovoLOG) 100 UNIT/ML VIAL SQ SCH ×4 (06:28→22:42)
[2022-01-25 06:48] LABS: African American GFR (CKD) 120 (>60 ml/min/1.73 sqM); Anion Gap 3 mmol/L; Blood Urea Nitrogen 9 mg/dL (9-20); Calcium 8.1 mg/dL (8.4-10.2); Carbon Dioxide 30 mmol/L (22-30); Chloride 104 mmol/L (98-107); Glucose 114 mg/dL (74-99); Non-African American GFR(CKD) 104 (>60 ml/min/1.73 sqM); Potassium 3.7 mmol/L (3.5-5.1); Sodium 137 mmol/L (137-145)
[2022-01-25] MEDS: SODIUM CHLORIDE 0.9% 1,000 ML IV SCH ×2 (07:56→23:03)
[2022-01-25] MEDS: PROPRANOLOL LA 60 MG CAP.SA.24H PO SCH (08:00)
[2022-01-25 08:42] LABS: Basophils # (A) 0.08 X 10*3/uL (0.00-0.10); Eosinophils # (A) 0.66 X 10*3/uL (0.04-0.35); Eosinophils % (A) 8.5 %; HCT 37.1 % (37.2-50.0); HGB 12.1 g/dL (12.0-17.0); Immature Grans, Automated 1.2 %; Lymphocytes # (A) 2.18 X 10*3/uL (0.90-5.00); Lymphocytes % (A) 28.1 %; MCH 28.1 pg (27.0-32.0); MCHC 32.6 g/dL (32.0-37.0); MCV 86.3 fL (80.0-97.0); Mean Platelet Volume 8.9 fL (9.5-12.2); Monocytes # (A) 0.58 X 10*3/uL (0.20-1.00); Monocytes % (A) 7.5 %; NRBC Per 100 WBC 0 /100 WBCS (0.0-0.0); Neutrophils # (A) 4.18 X 10*3/uL (1.80-7.70); Neutrophils % (A) 53.7 %; Platelet Count 335 X 10*3/uL (140-440); WBC 7.77 X 10*3/uL (4.50-10.00)
--- NOTE | 2022-01-25 09:19 | P.CONS ---
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 is now presenting to the [facility] ER for her right second toe that seem to be becoming more swollen red for the last few days patient denies any history of any trauma patient did have some pressure sensation to the right second toe however do have underlying neuropathy denies significant pain or any foul-smelling drainage patient denies high-grade fever or any chills on presentation to the hospital the patient was afebrile and no fever has been recorded subsequently patient did have white count of 11.7 with a left shift kidney function has been normal liver enzymes are normal patient did have a x-ray of the right foot cannot exclude osteomyelitis proximal phalanx of the right second toe patient has been started on vancomycin and Zosyn admitted to hospital infectious disease was consulted for further management of antibiotic therapy patient also have a ulceration on the proximal to the right foot and callus and plan is for surgical debridement at bedside by vascular surgery this afternoon Past Medical History Past Medical History: Diabetes Mellitus, GERD/Reflux, Hypertension Additional Past Medical History / Comment(s): NEUROPATHY IN FEET History of Any Multi-Drug Resistant Organisms: None Reported Additional Past Surgical History / Comment(s): retina reattachment x2, right foot -amputation of 4th toe, right great toe , left foot of 4th LESSER -toe ,PATIENT STATES INFECTION OF BONE -3RD LESSER TOE Past Anesthesia/Blood Transfusion Reactions: No Reported Reaction Past Psychological History: No Psychological Hx Reported Smoking Status: Former smoker Past Alcohol Use History: None Reported Additional Past Alcohol Use History / Comment(s): started smoking at age 20 quit at age 37 smoked 1/2 pack a month Past Drug Use History: None Reported - Past Family History Father Family Medical History: Coronary Artery Disease (CAD), Hypertension Mother Family Medical History: Coronary Artery Disease (CAD) Medications and Allergies Home Medications Medication Instructions Recorded Confirmed Type lisinopriL 20 mg PO HS 02/06/19 01/23/22 History Progesterone, Micronized 200 mg PO HS 01/28/20 01/23/22 History [Progesterone] metFORMIN HCL ER [Glucophage XR] 500 mg PO BID #30 tab 11/30/20 01/23/22 Rx Empagliflozin [Jardiance] 25 mg PO HS 06/15/21 01/23/22 History amLODIPine [Norvasc] 5 mg PO HS 06/18/21 01/23/22 History Dutasteride 0.5 mg PO HS 01/23/22 01/23/22 History Ergocalciferol (Vitamin D2) 1,250 mcg PO TREVIZO 01/23/22 01/23/22 History [Drisdol (50,000 Iu)] Estradiol Valerate 1 dose IM Q3D 01/23/22 01/23/22 History Propranolol HCl [Propranolol HCl 120 mg PO DAILY 01/23/22 01/23/22 History ER] Allergies Allergy/AdvReac Type Severity Reaction Status Date / Time No Known Allergies Allergy Verified 01/23/22 16:01 Physical Exam Vitals: Vital Signs Temp Pulse Pulse Resp BP BP Pulse Ox 01/24/22 08:00 97.5 F 63 16 152/75 95 01/24/22 01:43 97.9 F 59 17 146/74 98 01/23/22 19:57 98.1 F 60 17 149/83 97 01/23/22 18:12 18 01/23/22 16:55 97.7 F 63 16 136/95 97 01/23/22 16:36 97.6 F 63 18 132/74 99 01/23/22 13:48 98.0 F 70 20 134/82 97 Intake and Output 01/23/22 01/24/22 01/24/22 22:59 06:59 14:59 Intake Total 450 600 Balance 450 600 Intake: Intake, IV Titration 150 Amount Sodium Chloride 0.9% 1, 150 000 ml @ 75 mls/hr IV . [id number] [facility] Rx#:[id number] Oral 300 600 Other: # Voids 1 2 Weight 124.738 kg Results CBC & Chem 7: 01/25/22 06:09 01/25/22 06:09 Labs: Abnormal Lab Results - Last 24 Hours (Table) 01/23/22 01/23/22 01/23/22 Range/Units 15:00 15:00 15:00 WBC 11.7 H (3.8-10.6) k/uL Neutrophils # 8.2 H (1.3-7.7) k/uL Eosinophils # 0.8 H (0-0.7) k/uL Glucose 146 H (74-99) mg/dL POC Glucose (mg/dL) (70-110) mg/dL Hemoglobin A1c (0.0-6.0) % Plasma Lactic Acid Daniel 2.4 H* (0.7-2.0) mmol/L C-Reactive Protein 4.1 H (<1.0) mg/dL 01/23/22 01/23/22 01/23/22 Range/Units 15:00 16:59 21:14 WBC (3.8-10.6) k/uL Neutrophils # (1.3-7.7) k/uL Eosinophils # (0-0.7) k/uL Glucose (74-99) mg/dL POC Glucose (mg/dL) 116 H 133 H (70-110) mg/dL Hemoglobin A1c 6.6 H (0.0-6.0) % Plasma Lactic Acid Daniel (0.7-2.0) mmol/L C-Reactive Protein (<1.0) mg/dL 01/24/22 Range/Units 06:06 WBC (3.8-10.6) k/uL Neutrophils # (1.3-7.7) k/uL Eosinophils # (0-0.7) k/uL Glucose (74-99) mg/dL POC Glucose (mg/dL) 129 H (70-110) mg/dL Hemoglobin A1c (0.0-6.0) % Plasma Lactic Acid Daniel (0.7-2.0) mmol/L C-Reactive Protein (<1.0) mg/dL Microbiology - Last 24 Hours (Table) 01/23/22 14:46 Gram Stain - Preliminary Foot - Right Wound Culture - Preliminary Assessment and Plan Plan: 1patient with right diabetic foot infection involving his right second toe in this patient who did have diffuse swelling and redness and concerning for osteomyelitis on the basis of clinical finding as well as radiological finding could be a gram-positive skin adeel however gram-negative infection not entirely excluded in view of the history of recurrent infection and multiple amputation. 2await vascular surgery debridement and deep cultures. 3patient to continue the vancomycin and Zosyn while watching his kidney func tion closely. We will follow on clinical condition and cultures to further adjust medication if needed Thank you for this consultation will follow this patient along with you Time with Patient: Greater than 30
[2022-01-25 11:25] LABS: Glucose,Whole Blood 159 mg/dL (70-110)
--- NOTE | 2022-01-25 11:48 | P.PN ---
Subjective Progress Note Date: 01/25/22 Principal diagnosis: Right foot diabetic ulcer, osteomyelitis The patient is seen and examined today as a follow-up. She denies any fevers or chills. States she did have some sweats through the night. Has been afebrile. Continues on IV Zosyn. Infectious disease is following. Underwent bedside debridement yesterday of right diabetic ulcer as well as left great toe ulcer. 3 phase bone scan was ordered however due to shortage and isotopes unable to perform. MRI with and without contrast of the right foot has been ordered and is scheduled for this afternoon. Patient does state she is willing to undergo transmetatarsal amputation in order to heal the wound and prevent further infection. Also waiting on further recommendations from infectious disease. Objective - Vital Signs Vital signs: Vital Signs Temp 98.4 F 01/25/22 07:49 Pulse 59 01/25/22 07:49 Resp 16 01/25/22 07:49 BP 132/74 01/25/22 07:49 Pulse Ox 95 01/25/22 07:49 FiO2 Intake & Output 01/24/22 01/25/22 01/25/22 18:59 06:59 18:59 Other: Voiding Method Toilet Toilet Toilet # Voids 5 2 - Exam General appearance: The patient is alert, oriented, appears in no acute distress. HET: Head is normocephalic and atraumatic. Pupils are equal and reactive. Neck: Supple. Heart: Regular. Lungs: Equal expansion, normal respiratory effort. Abdomen: Soft, nontender, nondistended. Extremities: Bilateral palpable dorsalis pedis pulses, good capillary refill. Diabetic ulcer on plantar aspect of the right foot just below the second toe. Second toe swelling and redness. Ulcer packed with iodoform no surrounding redness. Left foot great toe plantar aspect with diabetic ulcer/callous with dressing clean dry and intact. Neurological: No focal deficits. Diabetic neuropathy. - Labs CBC & Chem 7: 01/25/22 06:09 01/25/22 06:09 Labs: Abnormal Lab Results - Last 24 Hours (Table) 01/24/22 01/24/22 01/24/22 Range/Units 11:59 16:51 20:35 Hct (37.2-50.0) % MPV (9.5-12.2) fL Immature Gran # (0.00-0.04) X 10*3/uL Eosinophils # (0.04-0.35) X 10*3/uL Glucose (74-99) mg/dL POC Glucose (mg/dL) 122 H 121 H 137 H (70-110) mg/dL Calcium (8.4-10.2) mg/dL 01/25/22 01/25/22 01/25/22 Range/Units 06:09 06:09 06:11 Hct 37.1 L (37.2-50.0) % MPV 8.9 L (9.5-12.2) fL Immature Gran # 0.09 H (0.00-0.04) X 10*3/uL Eosinophils # 0.66 H (0.04-0.35) X 10*3/uL Glucose 114 H (74-99) mg/dL POC Glucose (mg/dL) 116 H (70-110) mg/dL Calcium 8.1 L (8.4-10.2) mg/dL Microbiology - Last 24 Hours (Table) 01/23/22 15:00 Blood Culture - Preliminary Blood No Growth after 24 hours 01/23/22 14:40 Blood Culture - Preliminary Blood No Growth after 24 hours 01/23/22 14:46 Gram Stain - Preliminary Foot - Right Wound Culture - Preliminary Pseudomonas spec Assessment and Plan Assessment: 1. Right diabetic foot ulcer, likely osteomyelitis 2. Left great toe ulcer 3. Type 2 diabetes mellitus 4. Peripheral neuropathy 5. 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 Continue IV antibiotics per recommendations from infectious disease 2. Iodoform to right foot ulcer dialy 3. Bedside debridement planned 4. Nuclear med three-phase bone scan ordered however unable to complete due to isotope shortage, MRI ordered 5. Nothing by mouth after midnight 6. Patient scheduled for right transmetatarsal amputation tomorrow Thank you for this consultation, we will continue to follow. The impression and plan of care has been dictated as directed. Dr. Carson I performed a history and examination of this patient, discussed the same with the dictator. I agree with the dictator's note ,documented as a scribe. Any additional findings or plans will be noted.
[2022-01-25 16:58] LABS: Glucose,Whole Blood 118 mg/dL (70-110)
[2022-01-25] MEDS ORDERED: PIPERACILLIN-TAZOBACTAM 3.375 GM in SODIUM CHLORIDE 0.9% 100 ML IVPB ONE (18:15)
[2022-01-25 21:12] LABS: Glucose,Whole Blood 146 mg/dL (70-110)
[2022-01-25] MEDS: lisinopriL 20 MG TAB PO SCH (22:36)
[2022-01-25] MEDS: FINASTERIDE 5 MG TAB PO SCH (22:36)
[2022-01-25] MEDS: amLODIPine 5 MG TAB PO SCH (22:36)
[2022-01-26] MEDS: PIPERACILLIN-TAZOBACTAM 3.375 GM in SODIUM CHLORIDE 0.9% 100 ML IVPB SCH ×5 (00:09→23:59)
[2022-01-26] MEDS: HEPARIN SODIUM,PORCINE/PF 5,000 UNIT/0.5 ML SYRINGE SQ SCH ×4 (00:09→23:58)
[2022-01-26] MEDS ORDERED: VANCOMYCIN TROUGH DUE 1 EACH MISC MISCELLANE ONE (05:00)
[2022-01-26 06:10] LABS: Glucose,Whole Blood 143 mg/dL (70-110)
[2022-01-26] MEDS: INSULIN ASPART (NovoLOG) 100 UNIT/ML VIAL SQ SCH ×4 (06:23→21:43)
--- NOTE | 2022-01-26 06:23 | MR ---
EXAMINATION TYPE: MR foot RT wo/w con DATE OF EXAM: 01/25/2022 COMPARISON: None HISTORY: Rt foot diabetic ulcer, rule out osteomyelitis CONTRAST: Standard multiplanar, multisequence MRI departmental protocol images were obtained without contrast a nd with 12 mL intravenous Gadavist gadolinium contrast. There is subcutaneous edema of the mid and forefoot. The medial and lateral flexor tendons of the ania t appear intact. The Achilles tendon is intact. Plantar fascia is intact. There is plantar calcaneal spurring. There is moderate soft tissue swelling around the second metatarsal. There is significant s welling around the second MP joint. There is a posterior dislocation of the second MP joint. There is some mild enhancement around the second MP joint. There is some decreased signal on the T1 images on both sides of the first MP joint. There is amputat ion deformities of the third fourth and fifth toes. The third digit is amputated at the level of the mid shaft of the metatarsal. IMPRESSION: There is dislocation of the second MP joint. There is significant soft tissue swelling around the sec ond metatarsal head and the second MP joint and consistent with synovitis. No focal bone destruction. There is some edema on both sides of the first MP joint. No fracture seen. I do not see convincing e vidence for osteomyelitis.
[2022-01-26 07:29] LABS: African American GFR (CKD) 124 (>60 ml/min/1.73 sqM); Anion Gap 6 mmol/L; Blood Urea Nitrogen 9 mg/dL (9-20); Calcium 8.3 mg/dL (8.4-10.2); Carbon Dioxide 26 mmol/L (22-30); Chloride 106 mmol/L (98-107); Glucose 134 mg/dL (74-99); Non-African American GFR(CKD) 107 (>60 ml/min/1.73 sqM); Potassium 3.8 mmol/L (3.5-5.1); Sodium 138 mmol/L (137-145)
[2022-01-26] MEDS ORDERED: LACTATED RINGERS 1,000 ML IV ONE (08:11)
--- NOTE | 2022-01-26 10:33 | P.OP ---
Date of Procedure: 01/26/22 Description of Procedure: Preoperative diagnosis: Nonhealing diabetic foot ulceration, clinical osteomyelitis, infected toe wound, previous third through fifth toe amputation Postoperative diagnosis: Same Procedure: [Right transmetatarsal amputation] Surgeon: Jennifer Resendiz D.O. EBL: [50 mL] IV fluids: [See records] Urine output: [Not measured] Drains: [None] Complications: [None immediately apparent] Condition: [Stable to recovery] Operative indication and findings: [Patient is a 51-year-old diabetic male who identifies as female. She has had long-standing issues with right lower extremity wounds. Previous third through fifth toe amputations. This time the diabetic foot ulceration of the plantar surface of the second toe does track to bone and there is infection in the area therefore it was recommended amputation and given this is the fourth toe, full transmetatarsal amputation was recomm ended. Risks and benefits were discussed including but not limited to bleeding, infection, poor wound healing. Patient seemingly understood and was willing to proceed] Procedure in detail: [Patient was taken to the operative suite and placed in supine position. The right lower extremity was prepped and draped in usual sterile fashion. A preprocedure timeout was performed, all parties were in a greement. An incision was made overlying the metatarsals and carried down to the plantar portion of the foot creating a flap. Excision of the plantar wound was achieved as well. Subcu tissue was transected with electrocautery. The bone was transected with a bone saw. The previously amputated tissues were revised and cut back to the level of the mid metatarsal and alignment with the rest of the forefoot. There was significant scar tissue as well as hypertrophic tissue from the current inflammatory process. This was all excised. There is a copiously irrigated. Blood flow appeared excellent. Hemostasis was achieved with electrocautery. The wound was then reapproximated, due to the plantar wound, there is a slight rotational flap performed of the medial portion the plantar surface. All areas were reapproximated with interrupted sutures of 2-0 Vicryl in the deep dermal layer followed by 2-0 nylon vertical mattress fashion. There was a small window of tissue that was not able to be reapproximated therefore a wound VAC was placed and indicates was placed in the entirety of the incision. There was good suction without evidence of leak. The patient transferred to recovery in stable condition having tolerated the procedure well.]
[2022-01-26 10:40] LABS: Glucose,Whole Blood 117 mg/dL (70-110)
[2022-01-26] MEDS: PROPRANOLOL LA 60 MG CAP.SA.24H PO SCH (10:54)
[2022-01-26] MEDS: HYDROcodone/APAP 5-325MG 1 EACH TAB PO PRN ×3 (14:36→23:59)
[2022-01-26 16:33] LABS: Glucose,Whole Blood 138 mg/dL (70-110)
[2022-01-26] MEDS: SODIUM CHLORIDE 0.9% 1,000 ML IV SCH ×2 (18:39→23:59)
[2022-01-26 20:40] LABS: Glucose,Whole Blood 138 mg/dL (70-110)
[2022-01-26] MEDS: lisinopriL 20 MG TAB PO SCH (21:56)
[2022-01-26] MEDS: FINASTERIDE 5 MG TAB PO SCH (21:56)
[2022-01-26] MEDS: amLODIPine 5 MG TAB PO SCH (21:56)
[2022-01-27 05:59] LABS: Glucose,Whole Blood 128 mg/dL (70-110)
[2022-01-27] MEDS: INSULIN ASPART (NovoLOG) 100 UNIT/ML VIAL SQ SCH ×4 (06:05→21:18)
[2022-01-27] MEDS: PROPRANOLOL LA 60 MG CAP.SA.24H PO SCH (07:58)
[2022-01-27] MEDS: HEPARIN SODIUM,PORCINE/PF 5,000 UNIT/0.5 ML SYRINGE SQ SCH ×3 (07:58→23:19)
[2022-01-27] MEDS: HYDROcodone/APAP 5-325MG 1 EACH TAB PO PRN ×2 (07:58→20:42)
[2022-01-27] MEDS: PIPERACILLIN-TAZOBACTAM 3.375 GM in SODIUM CHLORIDE 0.9% 100 ML IVPB SCH ×3 (07:58→23:19)
[2022-01-27] MEDS: SODIUM CHLORIDE 0.9% 1,000 ML IV SCH (08:01)
[2022-01-27 11:41] LABS: Glucose,Whole Blood 147 mg/dL (70-110)
[2022-01-27 16:18] LABS: Glucose,Whole Blood 162 mg/dL (70-110)
[2022-01-27] MEDS: lisinopriL 20 MG TAB PO SCH (20:42)
[2022-01-27] MEDS: amLODIPine 5 MG TAB PO SCH (20:43)
[2022-01-27] MEDS: FINASTERIDE 5 MG TAB PO SCH (20:43)
[2022-01-27 20:57] LABS: Glucose,Whole Blood 147 mg/dL (70-110)
--- NOTE | 2022-01-28 01:44 | P.PN ---
Subjective Progress Note Date: 01/25/22 Patient is a 51-year-old patient with a history of diabetes type 2 [id number], hypertension, diabetic peripheral neuropathy and prior history of smoking and also history of to amputation and retinal detachment presents to ER with complaints of right foot infection. Patient has been having wound on the plantar surface of the foot overlying first metatarsal head for several months and is being followed by podiatry as an outpatient. Patient did have amputation of the third fourth and fifth digits on the right. Patient has been having worsening redness and swelling and pain for the past 1 w [place] and was seen by podiatry and recommended to go to ER. Patient states that his blood sugar is well controlled and A1c only 6.1. Denies any chest pain or shortness of breath. No nausea vomiting abdominal pain or diarrhea. X-ray of the foot showed findings as discussed above which cannot exclude osteomyelitis of the proximal phalanx of his right second toe. Soft tissue edema with soft tissue 8 nedaplatin 8 forming infection. Amputation changes as noted. Laboratory test showed WBC is 11.7, hemoglobin 13.7 and platelets 439 Sodium 137 potassium 4.8 chloride 106 bicarb 22 BUN 11 creatinine 0.73 and blood sugar 146 A1c 6.6 lactic acid 2.4 admission urine is not elevated. 01/25/2022 Patient is currently resting in the bed. Awake alert and oriented x3. No fever no chills. Patient did have night sweats last night. Currently on antibiotics now with Zosyn. He is on board. Patient underwent debridement of the right diabetic foot ulcer as well as grade 2 ulcer on the left. Bone scan was ordered but unable to perform. MRI with and without contrast of the right foot has been ordered and is scheduled suboptimal. Patient is scheduled for transmetatarsal amputation tomorrow. ID and vascular surgery is on board. Lab data showed WBC 7.7 hemoglobin 12.1 and platelets 335 Sodium 137 potassium 3.7 chloride 104 bicarb is 30 BUN 9 and creatinine 0.82 and blood sugar is 114 and calcium 8.1. Current medications reviewed. Objective - Vital Signs Vital signs: Vital Signs Temp 97.9 F 01/25/22 20:25 Pulse 60 01/25/22 20:25 Resp 20 01/25/22 20:25 BP 159/70 01/25/22 20:25 Pulse Ox 96 01/25/22 20:08 FiO2 Intake & Output 01/25/22 01/25/22 01/26/22 06:59 18:59 06:59 Other: Voiding Method Toilet Toilet Toilet # Voids 2 4 - Exam PHYSICAL EXAMINATION: Patient is lying in the bed comfortably, no acute distress, awake alert and oriented.. HEENT: Normocephalic. Neck is supple. Pupils reactive. Nostrils clear. Oral cavity is moist. Neck reveals no JVD, carotid bruits, or thyromegaly. CHEST EXAMINATION: Trachea is central. Symmetrical expansion. Lung castañeda clear to auscultation and percussion. CARDIAC: Normal S1, S2 with no gallops. No murmurs ABDOMEN: Soft. Bowel sounds present. Nontender. No organomegaly. No abdominal bruits. Extremities: reveal no edema. No clubbing or cyanosis Right foot ulcer plantar aspect of the first metatarsal and amputation of the second third and fourth toes. Left great toe ulcer. Neurologically awake, alert, oriented x3 with well-coordinated movements. No focal deficits noted Skin: No rash or skin lesions. Psychiatric: Coperative. Nonsuicidal, Musculoskeletal: No joint swelling or deformity. Normal range of motion. - Labs CBC & Chem 7: 01/25/22 06:09 01/26/22 06:54 Labs: Abnormal Lab Results - Last 24 Hours (Table) 01/25/22 01/25/22 01/25/22 Range/Units 06:09 06:09 06:11 Hct 37.1 L (37.2-50.0) % MPV 8.9 L (9.5-12.2) fL Immature Gran # 0.09 H (0.00-0.04) X 10*3/uL Eosinophils # 0.66 H (0.04-0.35) X 10*3/uL Glucose 114 H (74-99) mg/dL POC Glucose (mg/dL) 116 H (70-110) mg/dL Calcium 8.1 L (8.4-10.2) mg/dL 01/25/22 01/25/22 01/25/22 Range/Units 11: 16:55 21:11 Hct (37.2-50.0) % MPV (9.5-12.2) fL Immature Gran # (0.00-0.04) X 10*3/uL Eosinophils # (0.04-0.35) X 10*3/uL Glucose (74-99) mg/dL POC Glucose (mg/dL) 159 H 118 H 146 H (70-110) mg/dL Calcium (8.4-10.2) mg/dL Microbiology - Last 24 Hours (Table) 01/23/22 14:40 Blood Culture - Preliminary Blood No Growth after 48 hours 01/23/22 15:00 Blood Culture - Preliminary Blood No Growth after 48 hours 01/23/22 14:46 Gram Stain - Final Foot - Right Wound Culture - Final Pseudomonas aeruginosa Assessment and Plan Assessment: Right diabetic foot infection with plantar ulcer over the head of the first metatarsal. Cannot exclude osteomyelitis. Left great toe ulcer. Diabetes type 2 [id number] Diabetic peripheral neuropathy History of retinal detachment History of prior to amputations DVT prophylaxis Plan: Patient is s/p bedside debridement of the right foot ulcer. MRI with and without contrast rule out osteomyelitis. Patient continued on antibiotics Zosyn at this time. Follow-up deep wound cultures. Continue broad-spectrum antibiotics. Continued home blood pressure medications and insulin sliding scale. Pain management and follow-up closely. Time with Patient: Greater than 30
--- NOTE | 2022-01-28 01:48 | P.PN ---
Subjective Progress Note Date: 01/26/22 Patient is a 51-year-old patient with a history of diabetes type 2 [id number], hypertension, diabetic peripheral neuropathy and prior history of smoking and also history of to amputation and retinal detachment presents to ER with complaints of right foot infection. Patient has been having wound on the plantar surface of the foot overlying first metatarsal head for several months and is being followed by podiatry as an outpatient. Patient did have amputation of the third fourth and fifth digits on the right. Patient has been having worsening redness and swelling and pain for the past 1 w [place] and was seen by podiatry and recommended to go to ER. Patient states that his blood sugar is well controlled and A1c only 6.1. Denies any chest pain or shortness of breath. No nausea vomiting abdominal pain or diarrhea. X-ray of the foot showed findings as discussed above which cannot exclude osteomyelitis of the proximal phalanx of his right second toe. Soft tissue edema with soft tissue 8 nedaplatin 8 forming infection. Amputation changes as noted. Laboratory test showed WBC is 11.7, hemoglobin 13.7 and platelets 439 Sodium 137 potassium 4.8 chloride 106 bicarb 22 BUN 11 creatinine 0.73 and blood sugar 146 A1c 6.6 lactic acid 2.4 admission urine is not elevated. 01/25/2022 Patient is currently resting in the bed. Awake alert and oriented x3. No fever no chills. Patient did have night sweats last night. Currently on antibiotics now with Zosyn. He is on board. Patient underwent debridement of the right diabetic foot ulcer as well as grade 2 ulcer on the left. Bone scan was ordered but unable to perform. MRI with and without contrast of the right foot has been ordered and is scheduled suboptimal. Patient is scheduled for transmetatarsal amputation tomorrow. ID and vascular surgery is on board. Lab data showed WBC 7.7 hemoglobin 12.1 and platelets 335 Sodium 137 potassium 3.7 chloride 104 bicarb is 30 BUN 9 and creatinine 0.82 and blood sugar is 114 and calcium 8.1. 01/26/2022 Patient is currently resting in the bed. Awake alert and oriented x3. No complaints of chest pain or shortness of breath. No nausea vomiting abdominal pain or diarrhea. Patient was taken to the OR and is s/p right transmetatarsal amputation. Postoperative day 0 Wound cultures are growing Pseudomonas. Currently on Zosyn. Laboratory data showed a sodium 138 potassium 3.8 chloride 106 bicarb is 26 BUN 9 and creatinine 0.77 and calcium 8.3. Blood sugar is controlled. MRI of the foot showed there is dislocation of the second MP joint. There is significant soft tissue swelling around the second metatarsal head and second MP joint and consistent with synovitis. No focal bone destruction. There is some edema on both sides of the first MP joint no fracture seen. I do not see convincing evidence for osteomyelitis. Current medications reviewed. Objective - Vital Signs Vital signs: Vital Signs Temp 97.7 F 01/26/22 14:00 Pulse 56 01/26/22 14:00 Resp 17 01/26/22 14:00 BP 133/82 01/26/22 14:00 Pulse Ox 95 01/26/22 14:00 FiO2 Intake & Output 01/26/22 01/26/22 01/27/22 06:59 18:59 06:59 Intake Total 1283 Output Total 50 Balance 1233 Intake: IV 1283 Output: Estimated Blood Loss 50 Other: Voiding Method Toilet Toilet # Voids 4 1 - Exam PHYSICAL EXAMINATION: Patient is lying in the bed comfortably, no acute distress, awake alert and oriented.. HEENT: Normocephalic. Neck is supple. Pupils reactive. Nostrils clear. Oral cavity is moist. Neck reveals no JVD, carotid bruits, or thyromegaly. CHEST EXAMINATION: Trachea is central. Symmetrical expansion. Lung castañeda clear to auscultation and percussion. CARDIAC: Normal S1, S2 with no gallops. No murmurs ABDOMEN: Soft. Bowel sounds present. Nontender. No organomegaly. No abdominal bruits. Extremities: reveal no edema. No clubbing or cyanosis Rs/p right transmetatarsal amputation. . Left great toe ulcer. Neurologically awake, alert, oriented x3 with well-coordinated movements. No focal deficits noted Skin: No rash or skin lesions. Psychiatric: Coperative. Nonsuicidal, Musculoskeletal: No joint swelling or deformity. Normal range of motion. - Labs CBC & Chem 7: 01/25/22 06:09 01/26/22 06:54 Labs: Abnormal Lab Results - Last 24 Hours (Table) 01/26/22 01/26/22 01/26/22 Range/Units 06:09 06:54 10:38 Glucose 134 H (74-99) mg/dL POC Glucose (mg/dL) 143 H 117 H (70-110) mg/dL Calcium 8.3 L (8.4-10.2) mg/dL 01/26/22 01/26/22 Range/Units 16:31 20:38 Glucose (74-99) mg/dL POC Glucose (mg/dL) 138 H 138 H (70-110) mg/dL Calcium (8.4-10.2) mg/dL Microbiology - Last 24 Hours (Table) 01/23/22 15:00 Blood Culture - Preliminary Blood No Growth after 72 hours 01/23/22 14:40 Blood Culture - Preliminary Blood No Growth after 72 hours Assessment and Plan Assessment: Right diabetic foot infection with plantar ulcer over the head of the first metatarsal. Cannot exclude osteomyelitis.s/p right transmetatarsal amputation. Postoperative day 0 Left great toe ulcer. Diabetes type 2 [id number] Diabetic peripheral neuropathy History of retinal detachment History of prior to amputations DVT prophylaxis Plan: Patient is s/p bedside debridement of the right foot ulcer. s/p right transmetatarsal amputation on 01/26/22 MRI with and without contrast rule out osteomyelitis. MRI of the foot showed there is dislocation of the second MP joint. There is significant soft tissue swelling around the second metatarsal head and second MP joint and consistent with synovitis. No focal bone destruction. There is some edema on both sides of the first MP joint no fracture seen. I do not see convincing evidence for osteomyelitis. Patient continued on antibiotics Zosyn at this time. Follow-up deep wound cultures. Continue broad-spectrum antibiotics. Continued home blood pressure medications and insulin sliding scale. Pain management and follow-up closely. Time with Patient: Greater than 30
--- NOTE | 2022-01-28 01:51 | P.PN ---
Subjective Progress Note Date: 01/27/22 Patient is a 51-year-old patient with a history of diabetes type 2 [id number], hypertension, diabetic peripheral neuropathy and prior history of smoking and also history of to amputation and retinal detachment presents to ER with complaints of right foot infection. Patient has been having wound on the plantar surface of the foot overlying first metatarsal head for several months and is being followed by podiatry as an outpatient. Patient did have amputation of the third fourth and fifth digits on the right. Patient has been having worsening redness and swelling and pain for the past 1 w [employer] [place] and was seen by podiatry and recommended to go to ER. Patient states that his blood sugar is well controlled and A1c only 6.1. Denies any chest pain or shortness of breath. No nausea vomiting abdominal pain or diarrhea. X-ray of the foot showed findings as discussed above which cannot exclude osteomyelitis of the proximal phalanx of his right second toe. Soft tissue edema with soft tissue 8 nedaplatin 8 forming infection. Amputation changes as noted. Laboratory test showed WBC is 11.7, hemoglobin 13.7 and platelets 439 Sodium 137 potassium 4.8 chloride 106 bicarb 22 BUN 11 creatinine 0.73 and blood sugar 146 A1c 6.6 lactic acid 2.4 admission urine is not elevated. 01/25/2022 Patient is currently resting in the bed. Awake alert and oriented x3. No fever no chills. Patient did have night sweats last night. Currently on antibiotics now with Zosyn. He is on board. Patient underwent debridement of the right diabetic foot ulcer as well as grade 2 ulcer on the left. Bone scan was ordered but unable to perform. MRI with and without contrast of the right foot has been ordered and is scheduled suboptimal. Patient is scheduled for transmetatarsal amputation tomorrow. ID and vascular surgery is on board. Lab data showed WBC 7.7 hemoglobin 12.1 and platelets 335 Sodium 137 potassium 3.7 chloride 104 bicarb is 30 BUN 9 and creatinine 0.82 and blood sugar is 114 and calcium 8.1. 01/26/2022 Patient is currently resting in the bed. Awake alert and oriented x3. No complaints of chest pain or shortness of breath. No nausea vomiting abdominal pain or diarrhea. Patient was taken to the OR and is s/p right transmetatarsal amputation. Postoperative day 0 Wound cultures are growing Pseudomonas. Currently on Zosyn. Laboratory data showed a sodium 138 potassium 3.8 chloride 106 bicarb is 26 BUN 9 and creatinine 0.77 and calcium 8.3. Blood sugar is controlled. MRI of the foot showed there is dislocation of the second MP joint. There is significant soft tissue swelling around the second metatarsal head and second MP joint and consistent with synovitis. No focal bone destruction. There is some edema on both sides of the first MP joint no fracture seen. I do not see convincing evidence for osteomyelitis. 01/27/2022 Patient denies any complaints of fever or chills. No nausea vomiting abdominal pain or diarrhea. No cough or sputum production. Pain is controlled. Blood cultures showed no growth. Patient is being continued antibiotics in the form of Zosyn for Pseudomonas wound production. Patient is status post transmetatarsal right amputation POD 1 ID and vascular surgery is on board. Current medications reviewed. Objective - Vital Signs Vital signs: Vital Signs Temp 97.6 F 01/27/22 14:00 Pulse 60 01/27/22 14:00 Resp 17 01/27/22 14:00 BP 129/80 01/27/22 14:00 Pulse Ox 97 01/27/22 14:00 FiO2 Intake & Output 01/26/22 01/27/22 01/27/22 18:59 06:59 18:59 Intake Total 1283 Output Total 50 450 1750 Balance 1233 -450 -1750 Intake: IV 1283 Output: Urine 450 1750 Estimated Blood Loss 50 Other: Voiding Method Toilet Toilet Toilet Urinal # Voids 1 4 # Bowel Movements 1 - Exam PHYSICAL EXAMINATION: Patient is lying in the bed comfortably, no acute distress, awake alert and oriented.. HEENT: Normocephalic. Neck is supple. Pupils reactive. Nostrils clear. Oral cavity is moist. Neck reveals no JVD, carotid bruits, or thyromegaly. CHEST EXAMINATION: Trachea is central. Symmetrical expansion. Lung castañeda clear to auscultation and percussion. CARDIAC: Normal S1, S2 with no gallops. No murmurs ABDOMEN: Soft. Bowel sounds present. Nontender. No organomegaly. No abdominal bruits. Extremities: reveal no edema. No clubbing or cyanosis Rs/p right transmetatarsal amputation. . Left great toe ulcer. Neurologically awake, alert, oriented x3 with well-coordinated movements. No focal deficits noted Skin: No rash or skin lesions. Psychiatric: Coperative. Nonsuicidal, Musculoskeletal: No joint swelling or deformity. Normal range of motion. - Labs CBC & Chem 7: 01/25/22 06:09 01/26/22 06:54 Labs: Abnormal Lab Results - Last 24 Hours (Table) 01/26/22 01/27/22 01/27/22 Range/Units 20:38 05:57 11:40 POC Glucose (mg/dL) 138 H 128 H 147 H (70-110) mg/dL 01/27/22 Range/Units 16:16 POC Glucose (mg/dL) 162 H (70-110) mg/dL Microbiology - Last 24 Hours (Table) 01/23/22 15:00 Blood Culture - Preliminary Blood No Growth after 72 hours 01/23/22 14:40 Blood Culture - Preliminary Blood No Growth after 72 hours Assessment and Plan Assessment: Right diabetic foot infection with plantar ulcer over the head of the first metatarsal. .s/p right transmetatarsal amputation. Postoperative day 1 Left great toe ulcer. Diabetes type 2 [id number] Diabetic peripheral neuropathy History of retinal detachment History of prior to amputations DVT prophylaxis Plan: Patient is s/p bedside debridement of the right foot ulcer. s/p right transmetatarsal amputation on 01/26/22 MRI with and without contrast rule out osteomyelitis. MRI of the foot showed there is dislocation of the second MP joint. There is significant soft tissue swelling around the second metatarsal head and second MP joint and consistent with synovitis. No focal bone destruction. There is some edema on both sides of the first MP joint no fracture seen. I do not see convincing evidence for osteomyelitis. Patient continued on antibiotics Zosyn at this time. Continued home blood pressure medications and insulin sliding scale. Pain management and follow-up closely. Time with Patient: Greater than 30
[2022-01-28 05:58] LABS: Glucose,Whole Blood 119 mg/dL (70-110)
[2022-01-28] MEDS: INSULIN ASPART (NovoLOG) 100 UNIT/ML VIAL SQ SCH ×4 (06:12→20:39)
[2022-01-28] MEDS: HYDROcodone/APAP 5-325MG 1 EACH TAB PO PRN ×2 (06:41→20:39)
[2022-01-28] MEDS: SODIUM CHLORIDE 0.9% 1,000 ML IV SCH (06:41)
[2022-01-28] MEDS: PROPRANOLOL LA 60 MG CAP.SA.24H PO SCH (08:24)
[2022-01-28] MEDS: HEPARIN SODIUM,PORCINE/PF 5,000 UNIT/0.5 ML SYRINGE SQ SCH ×2 (08:25→16:42)
[2022-01-28] MEDS: PIPERACILLIN-TAZOBACTAM 3.375 GM in SODIUM CHLORIDE 0.9% 100 ML IVPB SCH ×2 (08:25→16:42)
--- NOTE | 2022-01-28 09:11 | P.PN ---
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 On today's evaluation that is 01/25/2022, patient denies having any fever or chills, the patient is breathing comfortably on room air no chest pain shortness of breath or cough no abdominal pain and denies any worsening pain to the right second toe Objective - Vital Signs Vital signs: Vital Signs Temp 98.4 F 01/25/22 07:49 Pulse 59 01/25/22 07:49 Resp 16 01/25/22 07:49 BP 132/74 01/25/22 07:49 Pulse Ox 95 01/25/22 07:49 FiO2 Intake & Output 01/24/22 01/25/22 01/25/22 18:59 06:59 18:59 Other: Voiding Method Toilet Toilet Toilet # Voids 5 2 - Exam GENERAL DESCRIPTION: A middle-age male lying in bed in no distress RESPIRATORY SYSTEM: Unlabored breathing , decreased breath sounds at bases HEART: S1 S2 regular rate and rhythm , ABDOMEN: Soft , no tenderness EXTREMITIES: Right second toe is swollen and red with a wound on the tip no drainage - Labs CBC & Chem 7: 01/25/22 06:09 01/26/22 06:54 Labs: Abnormal Lab Results - Last 24 Hours (Table) 01/24/22 01/24/22 01/25/22 Range/Units 16:51 20:35 06:09 Hct (37.2-50.0) % MPV (9.5-12.2) fL Immature Gran # (0.00-0.04) X 10*3/uL Eosinophils # (0.04-0.35) X 10*3/uL Glucose 114 H (74-99) mg/dL POC Glucose (mg/dL) 121 H 137 H (70-110) mg/dL Calcium 8.1 L (8.4-10.2) mg/dL 01/25/22 01/25/22 01/25/22 Range/Units 06:09 06:11 11:23 Hct 37.1 L (37.2-50.0) % MPV 8.9 L (9.5-12.2) fL Immature Gran # 0.09 H (0.00-0.04) X 10*3/uL Eosinophils # 0.66 H (0.04-0.35) X 10*3/uL Glucose (74-99) mg/dL POC Glucose (mg/dL) 116 H 159 H (70-110) mg/dL Calcium (8.4-10.2) mg/dL Microbiology - Last 24 Hours (Table) 01/23/22 14:46 Gram Stain - Final Foot - Right Wound Culture - Final Pseudomonas aeruginosa 01/23/22 15:00 Blood Culture - Preliminary Blood No Growth after 24 hours 01/23/22 14:40 Blood Culture - Preliminary Blood No Growth after 24 hours Assessment and Plan (1) Diabetic infection of right foot Current Visit: Yes Status: Acute Code(s): E11.628 - TYPE 2 DIABETES MELLITUS WITH OTHER SKIN COMPLICATIONS; L08.9 - LOCAL INFECTION OF THE SKIN AND SUBCUTANEOUS TISSUE, UNSP SNOMED Code(s): 05658960 (2) Diabetic foot ulcer Current Visit: No Status: Acute Code(s): E11.621 - TYPE 2 DIABETES MELLITUS WITH FOOT ULCER; L97.509 - NON-PRESSURE CHRONIC ULCER OTH PRT UNSP FOOT W UNSP SEVERITY SNOMED Code(s): 946157760 Plan: 1patient with right diabetic foot infection involving his right second toe in this patient who did have diffuse swelling and redness and concerning for osteomyelitis on the basis of clinical finding as well as radiological finding could be a gram-positive skin adeel however gram-negative infection not entirely excluded in view of the history of recurrent infection and multiple amputation. 2await vascular surgery debridement and deep cultures. 3patient local culture has been finalized and pseudomonas aeruginosa patient to continue with the Zosyn discontinue vancomycin Time with Patient: Less than 30
--- NOTE | 2022-01-28 09:13 | P.PN ---
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 Patient is status post right transmetatarsal amputation completed on 01/26/2022 by vascular surgery On today's evaluation that is 01/26/2022, patient remains to be afebrile, the patient is breathing comfortably on room air , the patient denies chest pain shortness of breath or cough no abdominal pain and patient pain to the right ania t transmetatarsal amputation site is controlled Objective - Vital Signs Vital signs: Vital Signs Temp 98.1 F 01/26/22 11:05 Pulse 60 01/26/22 11:05 Resp 18 01/26/22 11:05 BP 123/75 01/26/22 11:05 Pulse Ox 92 01/26/22 11:05 FiO2 Intake & Output 01/25/22 01/26/22 01/26/22 18:59 06:59 18:59 Intake Total 1283 Output Total 50 Balance 1233 Intake: IV 1283 Output: Estimated Blood Loss 50 Other: Voiding Method Toilet Toilet Toilet # Voids 4 4 - Exam GENERAL DESCRIPTION: A middle-age male lying in bed in no distress RESPIRATORY SYSTEM: Unlabored breathing , decreased breath sounds at bases HEART: S1 S2 regular rate and rhythm , ABDOMEN: Soft , no tenderness EXTREMITIES: Right foot transmetatarsal amputation wound is covered with a wound VAC - Labs CBC & Chem 7: 01/25/22 06:09 01/26/22 06:54 Labs: Abnormal Lab Results - Last 24 Hours (Table) 01/25/22 01/25/22 01/26/22 Range/Units 16:55 21:11 06:09 Glucose (74-99) mg/dL POC Glucose (mg/dL) 118 H 146 H 143 H (70-110) mg/dL Calcium (8.4-10.2) mg/dL 01/26/22 01/26/22 Range/Units 06:54 10:38 Glucose 134 H (74-99) mg/dL POC Glucose (mg/dL) 117 H (70-110) mg/dL Calcium 8.3 L (8.4-10.2) mg/dL Microbiology - Last 24 Hours (Table) 01/23/22 14:40 Blood Culture - Preliminary Blood No Growth after 48 hours 01/23/22 15:00 Blood Culture - Preliminary Blood No Growth after 48 hours 01/23/22 14:46 Gram Stain - Final Foot - Right Wound Culture - Final Pseudomonas aeruginosa Assessment and Plan (1) Diabetic infection of right foot Current Visit: Yes Status: Acute Code(s): E11.628 - TYPE 2 DIABETES MELLITUS WITH OTHER SKIN COMPLICATIONS; L08.9 - LOCAL INFECTION OF THE SKIN AND SUBCUTANEOUS TISSUE, UNSP SNOMED Code(s): 08081772 (2) Diabetic foot ulcer Current Visit: No Status: Acute Code(s): E11.621 - TYPE 2 DIABETES MELLITUS WITH FOOT ULCER; L97.509 - NON-PRESSURE CHRONIC ULCER OTH PRT UNSP FOOT W UNSP SEVERITY SNOMED Code(s): 730553522 Plan: 1patient with right diabetic foot infection involving his right second toe in this patient who did have diffuse swelling and redness and concerning for osteomyelitis on the basis of clinical finding as well as radiological finding could be a gram-positive skin adeel however gram-negative infection not entirely excluded in view of the history of recurrent infection and multiple amputation. 2patient is status post right transmetatarsal amputation. 3patient local culture has been finalized and pseudomonas aeruginosa patient to continue with the Zosyn and monitor clinical course closely
--- NOTE | 2022-01-28 09:14 | P.PN ---
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 Patient is status post right transmetatarsal amputation completed on 01/26/2022 by vascular surgery On today's evaluation that is 01/27/2022, patient continues to be afebrile, the patient is breathing comfortably on room air , the patient denies chest pain shortness of breath or cough no abdominal pain and patient pain to the right f oot transmetatarsal amputation site is controlled, patient denies any new symptoms Objective - Vital Signs Vital signs: Vital Signs Temp 98.3 F 01/28/22 01:51 Pulse 62 01/28/22 01:51 Resp 16 01/28/22 01:51 BP 127/71 01/28/22 01:51 Pulse Ox 97 01/28/22 01:51 FiO2 Intake & Output 01/27/22 01/28/22 01/28/22 18:59 06:59 18:59 Output Total 2550 Balance -2550 Output: Urine 2550 Other: Voiding Method Toilet Toilet Urinal Urinal # Voids 3 # Bowel Movements 1 - Exam GENERAL DESCRIPTION: A middle-age male lying in bed in no distress RESPIRATORY SYSTEM: Unlabored breathing , decreased breath sounds at bases HEART: S1 S2 regular rate and rhythm , ABDOMEN: Soft , no tenderness EXTREMITIES: Right foot transmetatarsal amputation wound is covered with a wound VAC - Labs CBC & Chem 7: 01/25/22 06:09 01/26/22 06:54 Labs: Abnormal Lab Results - Last 24 Hours (Table) 01/27/22 01/27/22 01/27/22 Range/Units 11:40 16:16 20:56 POC Glucose (mg/dL) 147 H 162 H 147 H (70-110) mg/dL 01/28/22 Range/Units 05:57 POC Glucose (mg/dL) 119 H (70-110) mg/dL Microbiology - Last 24 Hours (Table) 01/23/22 15:00 Blood Culture - Preliminary Blood No Growth after 96 hours 01/23/22 14:40 Blood Culture - Preliminary Blood No Growth after 96 hours Assessment and Plan (1) Diabetic infection of right foot Current Visit: Yes Status: Acute Code(s): E11.628 - TYPE 2 DIABETES MELLITUS WITH OTHER SKIN COMPLICATIONS; L08.9 - LOCAL INFECTION OF THE SKIN AND SUBCUTANEOUS TISSUE, UNSP SNOMED Code(s): 33811575 (2) Diabetic foot ulcer Current Visit: No Status: Acute Code(s): E11.621 - TYPE 2 DIABETES MELLITUS WITH FOOT ULCER; L97.509 - NON-PRESSURE CHRONIC ULCER OTH PRT UNSP FOOT W UNSP SEVERITY SNOMED Code(s): 720182997 Plan: 1patient with right diabetic foot infection involving his right second toe in this patient who did have diffuse swelling and redness and concerning for osteomyelitis on the basis of clinical finding as well as radiological finding could be a gram-positive skin adeel however gram-negative infection not entirely excluded in view of the history of recurrent infection and multiple amputation. 2patient is status post right transmetatarsal amputation. 3patient local culture has been finalized and pseudomonas aeruginosa patient to continue with the Zosyn, we will reevaluate the wound at the time of wound VAC change tomorrow to determine need for any IV antibiotic on discharge/ Time with Patient: Less than 30
[2022-01-28 12:03] LABS: Glucose,Whole Blood 144 mg/dL (70-110)
--- NOTE | 2022-01-28 12:31 | P.PN ---
Subjective Progress Note Date: 01/28/22 Principal diagnosis: Right foot diabetic ulcer, osteomyelitis Patient was seen and examined today as a follow-up. He is postop day #2 excuse me for right transmetatarsal amputation. He has a wound VAC in place. He states his pain has been well-controlled. He was up yesterday ambulating with postop shoe, he'll only. He states that he he felt a little unsteady on his feet. He's been afebrile. Denies any shortness of breath or chest pain. Objective - Vital Signs Vital signs: Vital Signs Temp 97.6 F 01/28/22 08:25 Pulse 65 01/28/22 08:25 Resp 16 01/28/22 08:25 BP 122/81 01/28/22 08:25 Pulse Ox 96 01/28/22 08:25 FiO2 Intake & Output 01/27/22 01/28/22 01/28/22 18:59 06:59 18:59 Output Total 2550 Balance -2550 Output: Urine 2550 Other: Voiding Method Toilet Toilet Urinal Urinal # Voids 3 # Bowel Movements 1 - Exam General appearance: The patient is alert, oriented, appears in no acute distress. HET: Head is normocephalic and atraumatic. Pupils are equal and reactive. Neck: Supple. Heart: Regular. Lungs: Equal expansion, normal respiratory effort. Abdomen: Soft, nontender, nondistended. Extremities: Bilateral palpable dorsalis pedis pulses, good capillary refill. Right TMA with wound VAC intact with good suction. - Labs CBC & Chem 7: 01/25/22 06:09 01/26/22 06:54 Labs: Abnormal Lab Results - Last 24 Hours (Table) 01/27/22 01/27/22 01/28/22 Range/Units 16:16 20:56 05:57 POC Glucose (mg/dL) 162 H 147 H 119 H (70-110) mg/dL 01/28/22 Range/Units 12:02 POC Glucose (mg/dL) 144 H (70-110) mg/dL Microbiology - Last 24 Hours (Table) 01/23/22 15:00 Blood Culture - Preliminary Blood No Growth after 96 hours 01/23/22 14:40 Blood Culture - Preliminary Blood No Growth after 96 hours Assessment and Plan Assessment: 1. Right diabetic foot ulcer with osteomyelitis, status post transmetatarsal amputation 2. Left great toe ulcer 3. Type 2 diabetes mellitus 4. Peripheral neuropathy 5. Previous right foot toes 3 through 5 amputation due to underlying osteomyelitis Plan: 1. Wound VAC to TMA site, change Friday 2. Continue with recommendations from infectious disease 3. Recommend PT for evaluation and treatment, heel walk only, use postop shoe 4. Patient is cleared for discharge from vascular surgery Thank you for this consultation, we will continue to follow. The impression and plan of care has been dictated as directed. Dr. Carson I performed a history and examination of this patient, discussed the same with the dictator. I agree with the dictator's note ,documented as a scribe. Any additional findings or plans will be noted.
[2022-01-28 14:23] LABS: Basophils # (A) 0.07 X 10*3/uL (0.00-0.10); Basophils % (A) 0.6 %; Eosinophils # (A) 0.43 X 10*3/uL (0.04-0.35); Eosinophils % (A) 3.9 %; HCT 37.2 % (37.2-50.0); HGB 12.3 g/dL (12.0-17.0); Immature Grans, Automated 1.4 %; Lymphocytes # (A) 2.16 X 10*3/uL (0.90-5.00); Lymphocytes % (A) 19.5 %; MCH 28.5 pg (27.0-32.0); MCHC 33.1 g/dL (32.0-37.0); MCV 86.3 fL (80.0-97.0); Monocytes # (A) 0.65 X 10*3/uL (0.20-1.00); Monocytes % (A) 5.9 %; NRBC Per 100 WBC 0 /100 WBCS (0.0-0.0); Neutrophils # (A) 7.62 X 10*3/uL (1.80-7.70); Neutrophils % (A) 68.7 %; Platelet Count 367 X 10*3/uL (140-440); RBC 4.31 X 10*6/uL (4.10-5.60); RDW 13.3 % (11.5-14.5); WBC 11.08 X 10*3/uL (4.50-10.00)
--- NOTE | 2022-01-28 14:31 | P.PN ---
Subjective Patient is a 51-year-old patient with a history of diabetes type 2 [id number]-[id number], hypertension, diabetic peripheral neuropathy and prior history of smoking and also history of to amputation and retinal detachment presents to ER with complaints of right foot infection. Patient has been having wound on the plantar surface of the foot overlying first metatarsal head for several months and is being followed by podiatry as an outpatient. Patient did have amputation of the third fourth and fifth digits on the right. Patient has been having worsening redness and swelling and pain for the past 1 week and was seen by podiatry and recommended to go to ER. Patient states that his blood sugar is well controlled and A1c only 6.1. Denies any chest pain or shortness of breath. No nausea vomiting abdominal pain or diarrhea. X-ray of the foot showed findings as discussed above which cannot exclude osteomyelitis of the proximal phalanx of his right second toe. Soft tissue edema with soft tissue 8 nedaplatin 8 forming infection. Amputation changes as noted. Laboratory test showed WBC is 11.7, hemoglobin 13.7 and platelets 439 Sodium 137 potassium 4.8 chloride 106 bicarb 22 BUN 11 creatinine 0.73 and blood sugar 146 A1c 6.6 lactic acid 2.4 admission urine is not elevated. 01/25/2022 Patient is currently resting in the bed. Awake alert and oriented x3. No fever no chills. Patient did have night sweats last night. Currently on antibiotics now with Zosyn. He is on board. Patient underwent debridement of the right diabetic foot ulcer as well as grade 2 ulcer on the left. Bone scan was ordered but unable to perform. MRI with and without contrast of the right foot has been ordered and is scheduled suboptimal. Patient is scheduled for transmetatarsal amputation tomorrow. ID and vascular surgery is on board. Lab data showed WBC 7.7 hemoglobin 12.1 and platelets 335 Sodium 137 potassium 3.7 chloride 104 bicarb is 30 BUN 9 and creatinine 0.82 and blood sugar is 114 and calcium 8.1. 01/26/2022 Patient is currently resting in the bed. Awake alert and oriented x3. No complaints of chest pain or shortness of breath. No nausea vomiting abdominal pain or diarrhea. Patient was taken to the OR and is s/p right transmetatarsal amputation. Postoperative day 0 Wound cultures are growing Pseudomonas. Currently on Zosyn. Laboratory data showed a sodium 138 potassium 3.8 chloride 106 bicarb is 26 BUN 9 and creatinine 0.77 and calcium 8.3. Blood sugar is controlled. MRI of the foot showed there is dislocation of the second MP joint. There is significant soft tissue swelling around the second metatarsal head and second MP joint and consistent with synovitis. No focal bone destruction. There is some edema on both sides of the first MP joint no fracture seen. I do not see convincing evidence for osteomyelitis. 01/27/2022 Patient denies any complaints of fever or chills. No nausea vomiting abdominal pain or diarrhea. No cough or sputum production. Pain is controlled. Blood cultures showed no growth. Patient is being continued antibiotics in the form of Zosyn for Pseudomonas wound production. Patient is status post transmetatarsal right amputation POD 1 ID and vascular surgery is on board. 01/28/2022 Patient with diabetic foot ulcer status post amputation of the right second metatarsal tarsal joint and toe on 01/26 Wound culture is growing Pseudomonas Patient currently on Zosyn Vascular surgery. The patient We will follow up with infectious disease recommendation The patient told me he does not want to go to rehab if indicated and he wants to go home with home care. He has a glucometer at home when he was instructed to monitor his glucose and he agrees Objective - Vital Signs Vital signs: Vital Signs Temp 97.6 F 01/28/22 08:25 Pulse 65 01/28/22 08:25 Resp 16 01/28/22 08:25 BP 122/81 01/28/22 08:25 Pulse Ox 96 01/28/22 08:25 FiO2 Intake & Output 01/27/22 01/28/22 01/28/22 18:59 06:59 18:59 Output Total 2550 Balance -2550 Output: Urine 2550 Other: Voiding Method Toilet Toilet Urinal Urinal # Voids 3 # Bowel Movements 1 - Exam GENERAL: The patient is alert and oriented x3, not in any acute distress. Well developed, well nourished. HEENT: Pupils are round and equally reacting to light. EOMI. No scleral icterus. No conjunctival pallor. Normocephalic, atraumatic. No pharyngeal erythema. No thyromegaly. CARDIOVASCULAR: S1 and S2 present. No murmurs, rubs, or gallops. PULMONARY: Chest is clear to auscultation, no wheezing or crackles. ABDOMEN: Soft, nontender, nondistended, normoactive bowel sounds. No palpable organomegaly. MUSCULOSKELETAL: No joint swelling or deformity. -EXTREMITIES: No cyanosis, clubbing, or pedal edema. Right foot surgical wound with wound VAC in place NEUROLOGICAL: Gross neurological examination did not reveal any focal deficits. SKIN: No rashes. no petechiae. - Labs CBC & Chem 7: 01/28/22 08:15 01/26/22 06:54 Labs: Abnormal Lab Results - Last 24 Hours (Table) 01/27/22 01/27/22 01/28/22 Range/Units 16:16 20:56 05:57 WBC (4.50-10.00) X 10*3/uL MPV (9.5-12.2) fL Immature Gran # (0.00-0.04) X 10*3/uL Eosinophils # (0.04-0.35) X 10*3/uL POC Glucose (mg/dL) 162 H 147 H 119 H (70-110) mg/dL 01/28/22 01/28/22 Range/Units 08:15 12:02 WBC 11.08 H (4.50-10.00) X 10*3/uL MPV 9.0 L (9.5-12.2) fL Immature Gran # 0.15 H (0.00-0.04) X 10*3/uL Eosinophils # 0.43 H (0.04-0.35) X 10*3/uL POC Glucose (mg/dL) 144 H (70-110) mg/dL Microbiology - Last 24 Hours (Table) 01/23/22 15:00 Blood Culture - Preliminary Blood No Growth after 96 hours 01/23/22 14:40 Blood Culture - Preliminary Blood No Growth after 96 hours Assessment and Plan Assessment: Right diabetic foot infection with plantar ulcer over the head of the first metatarsal. .s/p right transmetatarsal amputation on 01/26. On 1 pack Obesity with BMI of 37.3 Diabetes type 2 [id number] Diabetic peripheral neuropathy History of retinal detachment History of prior to amputations Plan: Continue with antibiotics as per ID team Vascular surgery cleared the patient Recommend low-fat diet Labs and medication were reviewed.. Continue same treatment. Continue with symptomatic treatment. Resume home medication. Monitor labs and vitals. DVT and GI prophylaxis. Further recommendations as per clinical course of the patient DVT prophylaxis: Subcutaneous heparin GI Prophylaxis: Pepcid PT/OT: Patient's wants to go to home with home care if indicated anyway Prognosis is guarded
[2022-01-28 15:05] LABS: Anion Gap 11.1 mmol/L (10.00-18.00); BUN/Creat Ratio 8.67 Ratio (12.00-20.00); Blood Urea Nitrogen 7.8 mg/dL (9.0-27.0); Carbon Dioxide 25.9 mmol/L (20.0-27.5); Potassium 4.1 mmol/L (3.5-5.5)
[2022-01-28 16:44] LABS: Glucose,Whole Blood 155 mg/dL (70-110)
[2022-01-28 20:34] LABS: Glucose,Whole Blood 157 mg/dL (70-110)
[2022-01-28] MEDS: FINASTERIDE 5 MG TAB PO SCH (20:39)
[2022-01-28] MEDS: lisinopriL 20 MG TAB PO SCH (20:39)
[2022-01-28] MEDS: amLODIPine 5 MG TAB PO SCH (20:39)
[2022-01-29] MEDS: HEPARIN SODIUM,PORCINE/PF 5,000 UNIT/0.5 ML SYRINGE SQ SCH ×3 (01:34→16:28)
[2022-01-29] MEDS: PIPERACILLIN-TAZOBACTAM 3.375 GM in SODIUM CHLORIDE 0.9% 100 ML IVPB SCH ×3 (01:34→16:29)
[2022-01-29] MEDS: SODIUM CHLORIDE 0.9% 1,000 ML IV SCH (01:38)
[2022-01-29 06:01] LABS: Glucose,Whole Blood 107 mg/dL (70-110)
[2022-01-29] MEDS: INSULIN ASPART (NovoLOG) 100 UNIT/ML VIAL SQ SCH ×3 (06:22→16:29)
[2022-01-29] MEDS: PROPRANOLOL LA 60 MG CAP.SA.24H PO SCH (08:20)
[2022-01-29 11:28] LABS: Glucose,Whole Blood 129 mg/dL (70-110)
[2022-01-29 13:55] VITALS: BMI 37.3
[2022-01-29 15:05] VITALS: BP 150/73; PULSE 61; RESP 16; TEMP 97.6
[2022-01-29 16:29] LABS: Glucose,Whole Blood 107 mg/dL (70-110)
--- NOTE | 2022-01-29 22:09 | P.DS ---
Providers Date of admission: 01/23/22 15:56 Attending physician: Geena Joseph Consults: 01/23/22 15:29 Consult Physician Urgent Consulting Provider: Jennifer Resendiz Consult Reason/Comments: Diabetic foot ulceration, possible osteomyelitis, cellulitis Do you want consulting provider notified?: Yes 01/23/22 15:49 Consult Physician Urgent Consulting Provider: Alba Craven Consult Reason/Comments: Diabetic foot ulcer Do you want consulting provider notified?: Yes Primary care physician: Elvia Carbone Hospital Course: Diagnoses: Right diabetic foot infection with plantar ulcer over the head of the first metatarsal. .s/p right transmetatarsal amputation on 01/26. On 1 pack Obesity with BMI of 37.3 Diabetes type 2 [id number]-[id number] Diabetic peripheral neuropathy History of retinal detachment History of prior to amputations Hospital course Patient is a 51-year-old patient with a history of diabetes type 2 [id number], hypertension, diabetic peripheral neuropathy and prior history of smoking and also history of to amputation and retinal detachment presents to ER with complaints of right foot infection. Patient has been having wound on the plantar surface of the foot overlying first metatarsal head for several months and is being followed by podiatry as an outpatient. Patient underwent evaluation by vascular surgery team and he had amputation of the right second tarsometatarsal toe on 01/26. Patient with culture growing Pseudomonas sensitive to Cipro. His antibiotics was adjusted to Cipro upon discharge 1 ID team He denies any other complaints No chest pain or dyspnea, no diarrhea or vomiting. No urinary complaints. She is able to go home today and wants to be discharged Patient was cleared for discharge by infectious disease team and vascular surger y team Patient will be discharged on short course of oral antibiotics of Cipro per ID team Problems and management plan were discussed with the patient and he verbalized understanding and acceptance Patient was found stable and can be discharged home in guarded prognosis however he needs follow-up as an outpatient. Patient was instructed to follow up with PCP Dr. Carbone within one week and patient agrees Patient was instructed to follow up with Dr. Craven in one week and Dr. Resendiz in 2 weeks and he agrees to call and make appointment Physical exam Gen: patient is a AAOx3, no distress CVS: S1-S2, RRR, no murmur Lungs: B/L CTA, no wheezing Abdomen: soft, no distention, no tenderness, positive bowel sounds -Extremity: no leg edema or induration. Right foot surgical wound healing with a dressing in a Place Time spent more than 35 minutes Patient Condition at Discharge: Fair Plan - Discharge Summary Discharge Rx Participant: No New Discharge Prescriptions: New Acetaminophen Tab [Tylenol] 650 mg PO Q6HR PRN tab PRN Reason: Mild Pain Or Fever > 100.5 Ciprofloxacin HCl [Cipro] 750 mg PO BID 10 Days #20 tab Continue lisinopriL 20 mg PO HS metFORMIN HCL ER [Glucophage XR] 500 mg PO BID #30 tab Ergocalciferol (Vitamin D2) [Drisdol (50,000 Iu)] 1,250 mcg PO TREVIZO Empagliflozin [Jardiance] 25 mg PO HS amLODIPine [Norvasc] 5 mg PO HS Propranolol HCl [Propranolol HCl ER] 120 mg PO DAILY Dutasteride 0.5 mg PO HS No Action Progesterone, Micronized [Progesterone] 200 mg PO HS Estradiol Valerate 1 dose IM Q3D Discharge Medication List lisinopriL 20 mg PO HS 02/06/19 [History] Progesterone, Micronized [Progesterone] 200 mg PO HS 01/28/20 [History] metFORMIN HCL ER [Glucophage XR] 500 mg PO BID #30 tab 11/30/20 [Rx] Empagliflozin [Jardiance] 25 mg PO HS 06/15/21 [History] amLODIPine [Norvasc] 5 mg PO HS 06/18/21 [History] Dutasteride 0.5 mg PO HS 01/23/22 [History] Ergocalciferol (Vitamin D2) [Drisdol (50,000 Iu)] 1,250 mcg PO TREVIZO 01/23/22 [History] Estradiol Valerate 1 dose IM Q3D 01/23/22 [History] Propranolol HCl [Propranolol HCl ER] 120 mg PO DAILY 01/23/22 [History] Acetaminophen Tab [Tylenol] 650 mg PO Q6HR PRN tab 01/29/22 [Rx] Ciprofloxacin HCl [Cipro] 750 mg PO BID 10 Days #20 tab 01/29/22 [Rx] Follow up Appointment(s)/Referral(s): Elvia Carbone III, MD [Primary Care Provider] - 1-2 days Home [facility] [NON-STAFF] - As Needed [facility] [NON-STAFF] - As Needed (walker) Jennifer Resendiz DO [STAFF PHYSICIAN] - 2 Weeks Alba Craven MD [STAFF PHYSICIAN] - 1 Week Patient Instructions/Handouts: Transmetatarsal Amputation (DC) Activity/Diet/Wound Care/Special Instructions: Change Wound Vac dressing every Friday, Friday, and Friday Heel walk only, where post op shoe Heart healthy diet activity is restricted till you see your doctor Discharge Disposition: HOME WITH HOME HEALTH SERVICES
== END 2022-01-29 17:59 | disposition home health service (06) | DRG 617 ==
LOC: EDSEX → EC 13:46 → EEVIPCON 15:56 → 4SSUR 15:56
PROVIDERS: ADMIT Internal Medicine; ATTEND Internal Medicine
PROC: 0HBMXZZ Excision of Right Foot Skin, External Approach (ICD-10-PCS; 2022-01-24)
PROC: 0Y6M0ZB Detachment at Right Foot, Partial 2nd Ray, Open Approach (ICD-10-PCS; 2022-01-26)
PROC: 0Y6M0ZC Detachment at Right Foot, Partial 3rd Ray, Open Approach (ICD-10-PCS; 2022-01-26)
PROC: 0Y6M0ZD Detachment at Right Foot, Partial 4th Ray, Open Approach (ICD-10-PCS; 2022-01-26)
PROC: 0Y6M0ZF Detachment at Right Foot, Partial 5th Ray, Open Approach (ICD-10-PCS; 2022-01-26)
PROC: 0Y6M0Z9 Detachment at Right Foot, Partial 1st Ray, Open Approach (ICD-10-PCS; principal; 2022-01-26 08:00)
DX: E11.69 Type 2 diabetes mellitus with other specified complication (principal); L03.115 Cellulitis of right lower limb; M86.8X7 Other osteomyelitis, ankle and foot; E11.621 Type 2 diabetes mellitus with foot ulcer; L97.529 Non-pressure chronic ulcer of other part of left foot with unspecified severity; K21.9 Gastro-esophageal reflux disease without esophagitis; E11.42 Type 2 diabetes mellitus with diabetic polyneuropathy; I10 Essential (primary) hypertension; L84 Corns and callosities; E66.9 Obesity, unspecified; B96.5 Pseudomonas (aeruginosa) (mallei) (pseudomallei) as the cause of diseases classified elsewhere; Z79.84 Long term (current) use of oral hypoglycemic drugs; Z79.899 Other long term (current) drug therapy; Z87.891 Personal history of nicotine dependence; Z89.422 Acquired absence of other left toe(s); Z89.421 Acquired absence of other right toe(s); Z68.37 Body mass index [BMI] 37.0-37.9, adult
CPT/HCPCS: 36415; 80048; 80053; 83036; 83605; 85025; 86140; 87040; 87070; 87077; 87186; 87205; 96365; 96367; 99285

== ENCOUNTER → 2022-03-14 | Outpatient (CLI) | payer OTHER ==
[2022-03-14 15:03] LABS: Basophils # (A) 0.09 X 10*3/uL (0.00-0.10); Basophils % (A) 0.8 %; Eosinophils % (A) 2.8 %; HCT 41.1 % (37.2-50.0); HGB 13.6 g/dL (12.0-17.0); Immature Grans, Automated 1.2 %; Lymphocytes % (A) 21.4 %; MCH 28.8 pg (27.0-32.0); MCHC 33.1 g/dL (32.0-37.0); MCV 86.9 fL (80.0-97.0); Mean Platelet Volume 9.6 fL (9.5-12.2); Monocytes # (A) 0.66 X 10*3/uL (0.20-1.00); Monocytes % (A) 6.1 %; NRBC Per 100 WBC 0 /100 WBCS (0.0-0.0); Neutrophils # (A) 7.26 X 10*3/uL (1.80-7.70); Neutrophils % (A) 67.7 %; Platelet Count 341 X 10*3/uL (140-440); RBC 4.73 X 10*6/uL (4.10-5.60); RDW 13.9 % (11.5-14.5); WBC 10.74 X 10*3/uL (4.50-10.00)
[2022-03-14 15:32] LABS: Chol/HDL Ratio 3.05 Ratio; LDL Cholesterol,Calculated 62.3 mg/dL (0.0-131.0)
[2022-03-14 15:59] LABS: PSA Annual Screen <0.014 ng/mL (0.000-4.000)
== END | disposition home or self-care (01) ==
LOC: LABWHC1 08:30 → EDSEX 08:30
PROVIDERS: ATTEND Family Medicine
DX: Z12.5 Encounter for screening for malignant neoplasm of prostate (principal); Z13.220 Encounter for screening for lipoid disorders; E11.621 Type 2 diabetes mellitus with foot ulcer; K21.9 Gastro-esophageal reflux disease without esophagitis; I10 Essential (primary) hypertension; L97.509 Non-pressure chronic ulcer of other part of unspecified foot with unspecified severity
CPT/HCPCS: 80061; 85025; 83036; 36415; G0103